=== PATIENT | male | born 1940 | race Caucasian/White ===

== ENCOUNTER 2019-12-21 13:25 | Outpatient (CLI) | payer MEDICARE, SELFPAY ==
--- NOTE | ~2019-12-21 | PE_ITS ---
EXAMINATION: PET skull to mid thigh DATE: 12/21/2019 15:43 INDICATION: Lung mass TECHNIQUE: Blood glucose level was 79 mg/dL. 10.36 mCi of 18-fluorodeoxyglucose (18-FDG) was administ ered i.v. Low dose computed tomography (CT) images were acquired from the base of the brain to the pr oximal thighs for attenuation correction and anatomic localization. Positron emission tomography (PET ) images were acquired in the same distribution beginning 60 minutes after injection. COMPARISON: 01/27/2018, 09/06/2019 FINDINGS: Head/neck: There is asymmetric soft tissue density in the area of the right tonsil with demonstrates abnormal FDG uptake with an SUV max of 11.4. There is chronic bilateral maxillary sinusitis. Changes of extensive dental procedures are again noted. Chest: The centrally necrotic masslike opacity of the right middle lobe described on the most recent chest CT has nearly completely resolved and does not demonstrate associated FDG uptake, most consiste nt with resolved infection/inflammation. There are airspace opacities and bronchial wall thickening o f the bilateral lower lobes as well as a 1.6 cm subpleural nodular opacity of the left lower lobe wit h mild FDG uptake. FDG uptake is also associated with the right lower lobe airspace opacities. There are small pleural effusions, right greater than left. No pneumothorax is identified. There is stable cardiomegaly. There is mild mediastinal lymphadenopathy without significant FDG uptake, likely reacti ve.. Abdomen/pelvis/proximal thighs: Physiologic FDG activity is present in the bowel and urinary tract. N o abnormal FDG uptake is identified. The liver, gallbladder, spleen, pancreas, and adrenal glands are normal. Cysts of the kidneys measure up to 6.3 cm on the left. There are nonobstructing stones of th e left kidney. Metallic density is again seen projecting near the hilum of the right kidney. No patho logically enlarged abdominal or pelvic lymph nodes are identified. There is calcified atherosclerosis of the aorta and many of the other arteries. Musculoskeletal: No abnormal FDG uptake is identified. There is anterior fusion at C3-4. Severe spond ylosis is noted at L5-S1. IMPRESSION: 1. Interval resolution of the previously described masslike opacity of the right middle lobe since th e comparison CT, most consistent with resolved infection/inflammation. Bilateral lower lobe opacities , consistent with pneumonia. 2. Asymmetric soft tissue density in the right tonsillar area with abnormal FDG uptake which may be b enign or malignant. Direct visualization is recommended. Reviewed, dictated and finalized at location A. [facility] IMPRESSION: 1. Interval resolution of the previously described masslike opacity of the righ t middle lobe since the comparison CT, most consistent with resolved infection/ inflammation. Bilateral lower lobe opacities, consistent with pneumonia. 2. Asymmetric soft tissue density in the right tonsillar area with abnormal FDG uptake which may be benign or malignant. Direct visualization is recommended.
[2019-12-21 14:03] LABS: Glucose Point of Care 79 (65-105)
== END 2019-12-21 13:26 | disposition home or self-care (01) ==
PROVIDERS: PCP Internal Medicine
DX: R91.8 Other nonspecific abnormal finding of lung field (principal)
CPT/HCPCS: 78815; A9552

== ENCOUNTER 2020-02-23 14:34 | Observation (INO) | payer MEDICARE, SELFPAY ==
[2020-02-23] VITALS (10 sets, daily range): BP systolic 104–127; BP diastolic 66–82; PULSE 87–140; RESP 16–18; TEMP 35.8–36.9; O2SAT 96–100; BMI 18.1
--- NOTE | ~2020-02-23 | XR_ITS ---
XR chest 2V 02/23/2020 15:21 Indication: Atrial fibrillation Procedure: AP and lateral views of the chest Comparison: 09/06/2019 Findings: There are bilateral interstitial infiltrates primarily of the lung bases. The right middle lobe mass seen on prior x-ray is not identified on current study. There is probable small amount of f luid in the right fissure. There are surgical changes consistent with partial right pneumonectomy. Th e lungs are hyperinflated which is consistent with, but not diagnostic of chronic obstructive pulmona ry disease. Impression: 1: There are coarse interstitial changes of the lower lungs which may represent chronic fibrosis, john ma or atypical pneumonia. Reviewed, dictated and finalized at location A. Impression: 1: There are coarse interstitial changes of the lower lungs which may represent chronic fibrosis, edema or atypical pneumonia.
--- NOTE | 2020-02-23 14:35 | ECG_ITS ---
Measurements Intervals [place] Rate: 138 P: [place]: 0 QRS: 43 QRSD: 110 T: 14 QT: 287 QTc: 436 Interpretive Statements ATRIAL FLUTTER/TACHYCARDIA WITH RAPID VENTRICULAR RESPONSE INCOMPLETE RIGHT BUNDLE BRANCH BLOCK ABNORMAL ECG Electronically Signed On 02-23-2020 14:50:00 CDT by Cedric Vasquez D.O.
--- NOTE | 2020-02-23 14:45 | ED.CHESTPAIN ---
HPI - Chest Pain General Chief Complaint: Arrhythmia/Palpitations Stated Complaint: afib Time Seen by Provider: 02/23/20 14:36 Source: RN notes reviewed History of Present Illness HPI narrative: Patient presents emergency department from home for rapid heart rate. Patient had a home health nurse visit today to check his heart rate and noted the heart rate to be fast. Patient states he did not feel the heart rate is going fast. He denies having chest pain or shortness of breath. The patient does have a history of atrial fibrillation and is currently on Eliquis. He is unsure of his mounter hand. He denies any fevers or chills or any other symptoms he is currently on metoprolol Related Data Home Medications Medication Instructions Recorded Confirmed apixaban [Eliquis] mg BID 09/06/19 metoprolol tartrate 25 mg PO DAILY 02/23/20 polyethylene glycol 3350 17 g PO BID 02/23/20 Allergies Allergy/AdvReac Type Severity Reaction Status Date / Time No Known Allergies Allergy Mild Verified 02/23/20 14:48 Review of Systems Review of Systems: Narrative: Gen.: Denies fevers or chills Eyes: Denies eye pain or visual change ENT: Denies congestion Respiratory: Denies shortness of breath or cough CV: Reports rapid heart rate GI: Denies abdominal pain nausea, emesis or diarrhea Musculoskeletal: Denies back pain or muscle pain Neuro: Denies numbness, tingling, weakness or focal weakness Skin: Denies rash Except as documented, all other systems reviewed and negative [facility] Past Medical History Medical History (Updated 02/23/20 @ 16:46 by Joseph Mitchell DO) Anxiety Atrial fibrillation HTN (hypertension) Left rib fracture Lung cancer Oral cancer Right wrist fracture Surgical History Surgical History (Updated 09/06/19 @ 13:45 by Anais Peace) H/O hernia repair H/O oral surgery Social History Social History Smoking status: Former smoker Gender identity (if verbalized by the patient): Male Exam Narrative: Exam Narrative: APPEARANCE: No acute distress, nontoxic, resting in bed EYES: EOMI HEENT: Normocephalic, atraumatic, OMM RESPIRATORY: No respiratory distress Clear to auscultation bilaterally with no rhonchi wheezing or rales. CARDIOVASCULAR: Tachycardic and regular without murmurs rubs or gallops. ABDOMINAL: Soft, nontender, nondistended, no rebound or guarding G-tube present MUSCULOSKELETAl: Moves all extremities. No clubbing, cyanosis or edema. NEURO: Awake and alert. Following commands, speech normal, no focal deficits SKIN:: Warm, dry. No rashes lesions or abrasions PSYCHIATRIC: Normal affect/mood, Course Course Emergency Course: Reviewed records patient had been on digoxin and Cardizem at one point but switch to metoprolol Discussed with Taylor Patel for cardiology presentation work-up. Agrees with consult at this time Discussed with TIMOTHY Cardona for Dr Devi presentation work-up. Agrees with admission Discussed with patient and family results of workup and diagnosis. Discussed need for admission. Patient and family understand and agree to current treatment plan Vital Signs Vital signs: Vital Signs Temperature 98.5 F 02/23/20 14:38 Pulse Rate 140 H 02/23/20 14:38 Respiratory Rate 16 02/23/20 14:38 Blood Pressure 122/82 02/23/20 14:38 Pulse Oximetry 99 02/23/20 14:38 Temperature 98.5 F 02/23/20 14:38 Pulse Rate 106 H 02/23/20 16:06 Respiratory Rate 16 02/23/20 16:06 Blood Pressure 108/66 02/23/20 16:06 Pulse Oximetry 96 02/23/20 16:06 MDM - Chest Pain Lab Data Result diagrams: 02/23/20 14:44 02/23/20 14:44 Labs: Lab Results 02/23/20 02/23/20 02/23/20 Range/Units 14:44 14:44 14:44 WBC 6.4 (4.5-10.0) K/mm3 RBC 4.74 (4.6-6.20) M/mm3 Hgb 13.3 L (14.0-18.0) g/dL Hct 42.3 (42.0-52.0) % MCV 89.2 (80-100) fl MCH 28.1 (26-34) pg MCHC
[2020-02-23] MEDS: SODIUM CHLORIDE 0.9% IV 1,000 ML 999 ML IV CONT (14:54)
[2020-02-23 14:56] LABS: Basophils Percent Auto 0.5 % (0.2-1.2); Eosinophils Absolute Auto 0.1 K/mm3 (0-0.3); Eosinophils Percent Auto 1.6 % (0-4.4); Hematocrit 42.3 % (42.0-52.0); Hemoglobin 13.3 g/dL (14.0-18.0); Immature Granulocyte Absolute 0.01 K/mm3 (0.00-0.031); Immature Granulocyte Percent A 0.2 % (0-0.5); Lymphocytes Absolute Auto 1.42 K/mm3 (0.9-3.2); Lymphocytes Percent Auto 22.2 % (18.3-44.2); Mean Corpuscular HGB Conc 31.4 g/dl (32-36); Mean Corpuscular Hemoglobin 28.1 pg (26-34); Mean Corpuscular Volume 89.2 fl (80-100); Mean Platelet Volume 10.2 fl (7.4-10.4); Monocytes Absolute Auto 0.6 K/mm3 (0.1-0.6); Monocytes Percent Auto 9.2 % (2.6-8.5); Neutrophils Absolute Auto 4.2 K/mm3 (1.3-6.7); Neutrophils Percent Auto 66.3 % (45.5-73.1); Platelet Count Result 158 k/mm3 (150-375); Red Blood Count 4.74 M/mm3 (4.6-6.20); Red Cell Distribution Width 18.4 % (11.5-14.5); White Blood Count 6.4 K/mm3 (4.5-10.0)
[2020-02-23 15:08] LABS: Blood Urea Nitrogen 38 mg/dL (9-20); Calcium 9.2 mg/dL (8.4-10.2); Carbon Dioxide 31 mmol/L (22-30); Chloride 103 mmol/L (98-107); Estimated CRCL calculation 78 ml/min; Estimated Glomerular Filt Rate > 60; Glucose 98 mg/dL (75-110); Potassium 4.4 mmol/L (3.4-5.0); Sodium 138 mmol/L (137-145)
[2020-02-23 15:12] LABS: INR 1.1; Prothrombin Time 14.3 Seconds (11.1-14.7)
[2020-02-23 15:13] LABS: Partial Thromboplastin Time 34.8 SECONDS (22.3-36.8)
--- NOTE | 2020-02-23 15:15 | ECG_ITS ---
Measurements Intervals [place] Rate: 86 P: [place]: 0 QRS: 52 QRSD: 121 T: 5 QT: 368 QTc: 441 Interpretive Statements ATRIAL FLUTTER/TACHYCARDIA RIGHT BUNDLE BRANCH BLOCK BASELINE ARTIFACT- II, III, AVF, V1-V3 ABNORMAL ECG Electronically Signed On 02-23-2020 15:58:42 CDT by Cedric Vasquez D.O.
[2020-02-23 15:26] LABS: Troponin I < 0.012 ng/mL (0.000-0.034)
--- NOTE | 2020-02-23 17:10 | ADMGEN ---
This patient, Hieu Silva, was admitted to IMU Room 205-01. Patient/family oriented to hospital policies and general routines including ID bracelet, bed and alarms, visiting hours, pain management, procedures, bathroom and other care routines, personal items, smoking policy, room service/diet, and visiting hours. Valuables list has been completed. Information on how to activate the Rapid Response Team has been discussed. Patient/Family are encouraged to report perceived risks to care and to ask questions if they do not understand what they are told or what they should do.
[2020-02-23 18:03] LABS: Troponin I < 0.012 ng/mL (0.000-0.034)
--- NOTE | 2020-02-23 20:40 | PM.IMHP ---
H&P: HPI History of Present Illness Chief complaint: ?Rapid heart rate.? Narrative: Hieu Silva is a very pleasant 79-year-old male with history of atrial flutter/fibrillation who presented to the emergency department earlier today for evaluation of ?rapid heart rate.? A home health nurse was visiting today and when she checked his vitals he was found to be tachycardic and he was directed to the emergency department. He was indeed found to be in atrial flutter with rapid ventricular response, of which she is completely asymptomatic, and he is being admitted in this setting. To his knowledge, he has always been rate controlled in fact he thinks his atrial flutter is paroxysmal. Previously he was on digoxin and diltiazem, but both of those medications were stopped during a recent hospitalization in December 2019. Sometime in November, he had a chest x-ray and was found to have a possible lung mass. PET scan on December 21, 2019 showed resolution of the previously described masslike opacity and also demonstrated bilateral lower lobe pneumonia. It then came to fruition that he had been experiencing dysphagia for a year and a half, and he was subsequently admitted at both [facility] in [facility] for further evaluation. I assumed he was treated for aspiration pneumonia and a PEG tube was inserted. He continues to drink liquids, and states his dysphagia is mainly with solids. In any regard, he has been doing well at home since that time, and home health does come to visit. It was during that routine visit today that he was found to be tachycardic and was brought to the hospital. Again, he is asymptomatic and has no feelings of irregular heartbeat or palpitations. He has not had chest pain, pleuritic pain, or shortness of breath. He will a cough occasionally with liquids, but denies concerns for aspiration (although it sounds as though he had silent aspiration previously). No fever, chills, or sweats. Review of Systems Review of Systems: Narrative: Twelve systems were reviewed with pertinent positives and negatives as per HPI. No fever, chills, or sweats. He has lost 40 pounds in the last year and a half, which he attributes to dysphagia. He also notes that his voice has changed somewhat. Apparently, the dysphagia has been attributed to radiation that he received some 15+ years ago for oral cancer. He denies having problems with his secretions. No nausea or vomiting. No diarrhea. He does have occasional constipation. Except as documented, all other systems were reviewed and are negative. 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 History of echocardiogram Echocardiogram in May 2014 showed vigorous contractility of the left ventricle with ejection fraction of 70%, mild anterior leaflet mitral valve prolapse with mild mitral regurgitation and mild left atrial enlargement. Left rib fracture Oral cancer (~2002) Treated at [facility] with radiation and resection of the left upper jaw. Paroxysmal atrial flutter Right wrist fracture Surgical History Surgical History (Updated 02/23/20 @ 22:50 by Dulce Hinkle PA-C) History of nephrectomy (~2011) Patient apparently had a large mass on his right kidney, which was benign. History of oral surgery (~2002) Resection of left upper jaw malignancy. Status post left inguinal herniorrhaphy Family History Family History (Updated 02/23/20 @ 19:59 by Dulce Hinkle PA-C) Father Acute myocardial infarction Diabetes mellitus Social History Social History (Updated 02/23/20 @ 22:51 by Dulce Hinkle PA-C) Social History: The patient lives in his own home in [place]. He is and has 3 children. He has a cat that lives at home with
[2020-02-23 20:50] LABS: Alanine Aminotransferase 14 U/L (4-50); Albumin Level 3.7 g/dL (3.5-5.1); Alkaline Phosphatase 84 U/L (38-126); Aspartate Amino Transferase 22 U/L (17-59); Bilirubin,Total 0.5 mg/dL (0.2-1.3); Magnesium 1.9 mg/dL (1.6-2.3); Phosphorus 3.9 mg/dL (2.5-4.5)
[2020-02-23 21:00] LABS: NT Pro B Type Natriuretic Pept 1580 PG/ML (5-100)
[2020-02-23 21:02] LABS: Troponin I < 0.012 ng/mL (0.000-0.034)
[2020-02-24] VITALS (11 sets, daily range): BP systolic 98–125; BP diastolic 60–83; PULSE 65–101; RESP 12–18; TEMP 36.1–36.4; O2SAT 95–97
[2020-02-24 05:26] LABS: Basophils Percent Auto 0.7 % (0.2-1.2); Eosinophils Absolute Auto 0.1 K/mm3 (0-0.3); Eosinophils Percent Auto 2.7 % (0-4.4); Hematocrit 37.9 % (42.0-52.0); Hemoglobin 11.8 g/dL (14.0-18.0); Immature Granulocyte Absolute 0.01 K/mm3 (0.00-0.031); Immature Granulocyte Percent A 0.2 % (0-0.5); Lymphocytes Absolute Auto 1.26 K/mm3 (0.9-3.2); Lymphocytes Percent Auto 28.7 % (18.3-44.2); Mean Corpuscular HGB Conc 31.1 g/dl (32-36); Mean Corpuscular Hemoglobin 27.5 pg (26-34); Mean Corpuscular Volume 88.3 fl (80-100); Mean Platelet Volume 10.2 fl (7.4-10.4); Monocytes Absolute Auto 0.4 K/mm3 (0.1-0.6); Monocytes Percent Auto 9.3 % (2.6-8.5); Neutrophils Absolute Auto 2.6 K/mm3 (1.3-6.7); Neutrophils Percent Auto 58.4 % (45.5-73.1); Platelet Count Result 146 k/mm3 (150-375); Red Blood Count 4.29 M/mm3 (4.6-6.20); Red Cell Distribution Width 18.2 % (11.5-14.5); White Blood Count 4.4 K/mm3 (4.5-10.0)
[2020-02-24 05:44] LABS: Alanine Aminotransferase 13 U/L (4-50); Albumin Level 3.4 g/dL (3.5-5.1); Alkaline Phosphatase 84 U/L (38-126); Aspartate Amino Transferase 22 U/L (17-59); Bilirubin,Total 0.8 mg/dL (0.2-1.3); Blood Urea Nitrogen 22 mg/dL (9-20); Calcium 8.6 mg/dL (8.4-10.2); Carbon Dioxide 28 mmol/L (22-30); Chloride 105 mmol/L (98-107); Estimated CRCL calculation 75 ml/min; Estimated Glomerular Filt Rate > 60; Glucose 83 mg/dL (75-110); Potassium 3.6 mmol/L (3.4-5.0); Sodium 137 mmol/L (137-145)
[2020-02-24] MEDS: APIXABAN 5 MG TABLET FEED TUBE (08:48)
[2020-02-24] MEDS: polyethylene glycoL 3350 17 GM POWD.PACK FEED TUBE (08:48)
[2020-02-24] MEDS: METOPROLOL TARTRATE 25 MG TABLET FEED TUBE (08:48)
--- NOTE | 2020-02-24 13:33 | PM.CNCAR ---
Assessment and Plan Assessment and plan (1) Atrial flutter with rapid ventricular response: Code(s): I48.92 - Unspecified atrial flutter Status: Acute Assessment and Plan: history of paroxysmal atrial flutter with variable AV block. Heart rate well controlled after receiving intravenous diltiazem which has subsequently been discontinued. He was taking metoprolol tartrate 12.5 mg per tube once daily as an outpatient. Increase metoprolol tartrate to 25 mg per tube twice daily. Observed into this afternoon for adequate heart rate control. If stable no other issues he may be discharged home from a cardiovascular perspective to follow up as an outpatient within 4 weeks. Consider outpatient 24 hour Holter monitor to establish heart rate control. As patient is asymptomatic up titration as an outpatient with metoprolol as tolerated preferable to transferring patient to the emergency department with an elevated heart rate unless additional concerns are present. Disposition per hospitalist service. troponin is negative, no anginal or CHF symptoms. Thank you for this consultation. Please do not hesitate to contact me with additional questions or concerns. (2) Hypertension: Code(s): I10 - Essential (primary) hypertension Status: Acute Assessment and Plan: Stable, no acute issues. Continue medical therapy. (3) Current use of intermediate anticoagulation: Code(s): Z79.01 - snf (current) use of anticoagulants Status: Acute Assessment and Plan: Continue systemic anticoagulation at present dose. Monitor for bleeding. History of Present Illness History of Present Illness Consult date/time: Date of service: 02/24/20 13:33 This is a cardiology consultation at the request of Kristyn Hinkle of the [facility] service for our opinion regarding atrial flutter with rapid ventricular response. Requesting physician: Dulce Hinkle PA-C Consult reason: atrial fibrillation ( Atrial flutter with rapid ventricular response) Reason For Visit: ?Rapid heart rate.? Narrative: patient is a very pleasant 79-year-old male the past medical history significant for paroxysmal atrial flutter longstanding maintained on systemic anticoagulation and metoprolol tartrate 12.5 mg per tube, history of mitral valve prolapse with mitral valve regurgitation, hypertension, history of bradycardia who was brought in today after home health nursing evaluation revealed his heart rate to be rapid. Patient had no symptoms of palpitation, shortness of breath or chest pain. He states he feels well would like to be discharged home. He was subsequently started on intravenous diltiazem which controlled his heart rate nicely heart rate 60s- 80s. Patient states he has been compliant with metoprolol and Eliquis twice daily. He denies bleeding, falls, fevers, chills, recent sick contacts or illness. His electrolytes were stable,, serial troponins negative x3, proBNP 1580. Patient has no complaints although chest x-ray interpreted as coarse interstitial changes at lower lung zones chronic fibrosis, edema or atypical pneumonia by Radiology. He denies lower extremity edema, orthopnea or PND. No recent falls, near-syncope, syncope, dizziness or lightheadedness. No bright red blood per rectum, melena or hematuria. No hemoptysis. Per review electronic medical record suggestion of possible aspiration but patient denies dysphagia. Review of Systems Review of Systems: All systems reviewed & are unremarkable except as noted in HPI and below Constitutional: Constitutional: Reports as per HPI, Reports no additional constitutional complaints, Denies body ache(s), Denies chills, Denies fatigue, Denies lethargy and Denies weakness Eyes: Eyes: Reports as per HPI and Reports no additional eye complaints ENT: Reports system reviewed and no additional complaints, except as documented and Reports as per HPI Cardiovascular:
--- NOTE | 2020-02-24 13:43 | PM.DS ---
DS: Diagnosis Admitting Diagnosis Admitting Diagnosis: Unspecified atrial flutter Discharge Diagnosis (1) Atrial flutter with rapid ventricular response: Code(s): I48.92 - Unspecified atrial flutter Status: Acute Assessment and Plan: Patient was started on IV Cardizem drip with improvement of his heart rate. Cardiology evaluated the patient and discontinued his IV Cardizem drip and increase his metoprolol to 25 mg b.i.d. tele currently shows the patient's heart rate is 67 And atrial fibrillation, with few PVCs otherwise no acute abnormality. the patient feels better and would like to be discharged at this time. 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 patient understands and agrees with the plan all questions answered. 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 (3) Abnormal chest x-ray: Code(s): R93.89 - Abnormal findings on diagnostic imaging of other specified body structures Status: Acute Assessment and Plan: Chest x-ray shows coarse interstitial changes of the lower lungs which could be fibrosis, edema, or atypical pneumonia. He was discharged from [facility] on January 07, 2020 after being admitted for presumed aspiration pneumonia. The patient states he only drinks about 350 cc of liquid throughout the day by mouth to trying keep his mouth and throat moist. He denies any coughing with drinking, worsening cough, shortness of breath at rest or with exertion, fever, chills, chest congestion or any other symptoms at this time. I informed the patient that he should decrease his oral intake as much as possible due to the risk of aspiration. he should only drink if his mouth or throat is dry. Patient needs to follow-up with his primary care provider and [facility] who has been taking care of him for further evaluation. Patient's vital signs are stable, afebrile, normal respirations, normal oxygenation, no leukocytosis, no elevation to neutrophil count to suggest he has pneumonia at this time. DS: Summary Hospital Course Reason for hospitalization: 79-year-old man with a history of paroxysmal atrial flutter/fibrillation, who presented to the emergency department after being found to have an elevated heart rate by his home health nurse. The patient was asymptomatic and otherwise feeling well without any issues. Patient EKG on arrival showed atrial flutter with RVR and heart rate of 138. The patient's vitals were otherwise unremarkable. The patient's labs showed normal CBC with differential, normal coag panel, normal BMP other than slightly elevated BUN. Normal troponin x3. BNP was 1580, but he appears euvolemic. The patient was admitted into the hospital for observation and started on an IV Cardizem drip. Cardiology was consulted from the emergency room and Dr. Christian evaluated the patient today and discontinue the IV Cardizem drip and increased his metoprolol tartrate to 25 mg b.i.d. for better rate control. Patient was still feeling asymptomatic and he was stable to be discharged home to continue with home health. The patient understands and agrees with the plan all questions answered. Patient has a history of oral cancer status post radiation to his mouth and neck area. He had a recent admission to [facility] and was found to have aspiration pneumonia. He had a PEG tube placed and he continues to drink some liquids throughout the day. On arrival his chest x-ray shows coarse interstitial changes of th
== END 2020-02-24 15:20 | disposition home health service (06) ==
LOC: ANHED 16:02 → ANHIMU 16:46
PROVIDERS: Physician Assistant; Admitting Provider Internal Medicine; Emergency Provider Emergency Medicine; PCP Internal Medicine; Visit Provider Physician Assistant
DX: I48.92 Unspecified atrial flutter (principal); I48.91 Unspecified atrial fibrillation; I10 Essential (primary) hypertension; R93.89 Abnormal findings on diagnostic imaging of other specified body structures; Z79.01 Long term (current) use of anticoagulants; Z79.899 Other long term (current) drug therapy; Z85.819 Personal history of malignant neoplasm of unspecified site of lip, oral cavity, and pharynx; Z87.891 Personal history of nicotine dependence
CPT/HCPCS: 36415; 71046; 80048; 80053; 80076; 83735; 83880; 84100; 84484; 85025; 85610; 85730; 93005; 96361; 96374; 96376; 99285; A9270; G0378; J7030

== ENCOUNTER 2020-06-04 09:02 | Inpatient (IN) | payer MEDICARE, SELFPAY ==
[2020-06-04] VITALS (24 sets, daily range): BP systolic 73–112; BP diastolic 45–95; PULSE 86–145; RESP 14–24; TEMP 36.4–36.5; O2SAT 97–100; BMI 21.7; BMI 20.9
--- NOTE | 2020-06-04 | ECHO_ITS ---
Patient Info Name: Hieu Silva Age: 79 years : 1940 Gender: Male Ht: 72 in Wt: 159 lbs BSA: 1.91 m2 HR: 140 bpm BP: 91 / 52 mmHg Heart Rhythm: Atrial Flutter Technical Quality: Good Exam Date: 06/04/2020 2:30 PM Exam Location: [facility] Patient Status: Outpatient Admit Date: 06/04/2020 Staff Ordering Physician: Lisha Cobb MD Econometrics Professor: Simone Vicente RDCS Attending Provider: Sina Diamond MD Referring Physician: Reza RIVERA; Exam Type: CA echo doppler color flow Study Info Indications I34.1 - Nonrheumatic mitral (valve) prolapse Complete two-dimensional, color flow and Doppler transthoracic echocardiogram is performed. History/Risk Factors Atrial flutter; Hypotension, MV prolapse. Summary 1. Left ventricular chamber dimension is normal. 2. Left ventricular systolic function is normal, estimated at 55-60%. 3. There is moderately increased left ventricular wall thickness. 4. The left ventricular diastolic function is indeterminate. 5. Left atrial chamber dimension is severely enlarged. 6. Right atrial chamber dimension is moderately enlarged. 7. There is moderate mitral valve regurgitation. 8. 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 9. There is mild tricuspid valve regurgitation. Left Ventricle Left ventricular chamber dimension is normal. Left ventricular systolic function is normal, estimated at 55-60%. There is moderately increased left ventricular wall thickness. The left ventricular diastolic function is indeterminate. Right Ventricle Right ventricular chamber dimension is normal. Right ventricular systolic function is normal. Left Atria Left atrial chamber dimension is severely enlarged. Right Atria Right atrial chamber dimension is moderately enlarged. Atrial Septum Intact interatrial septum visualized by color flow imaging. Aortic Valve The aortic valve is trileaflet. There is mild aortic valve sclerosis. There is no aortic valve stenosis. There is trace aortic valve regurgitation. Pulmonic Valve The pulmonic valve is normal. There is no pulmonic valve stenosis. There is mild pulmonic regurgitation. Mitral Valve The mitral valve has anterior prolapse. There is no mitral valve stenosis. There is moderate mitral valve regurgitation. Tricuspid Valve The tricuspid valve leaflets are normal. There is no significant tricuspid valve stenosis. There is mild tricuspid valve regurgitation. Pericardium/Pleural The pericardium appears normal. Inferior Vena Cava Normal inferior vena cava with >50% collapse upon inspiration consistent with normal right atrial pressure, 5 mmHg. Aorta The aortic root size at the sinus of Valsalva is normal. The prox ascending aorta size is normal. Left Ventricular Outflow Tract Name Value Normal LVOT 2D LVOT Diameter 2.1 cm LVOT Doppler LVOT Peak Gradient 3 mmHg LVOT Mean Gradient 2 mmHg LVOT VTI 10 cm LVOT VTI/AV VTI Ratio 0.6 LVOT Stro
--- NOTE | ~2020-06-04 | XR_ITS ---
EXAMINATION: XR chest port-a-cath/central DATE: 06/04/2020 11:51 INDICATION: Central line placement. TECHNIQUE: A single frontal view of the chest was obtained. COMPARISON: Chest single view at 9:34 AM, PET CT 12/21/2019 FINDINGS: There is a staple line in right lung upper lobe. Again seen is scarring in paramediastinal left upper lobe. There is a trace pleural effusion in right minor fissure. No pneumothorax. The heart size is normal. A right internal jugular central venous catheter is seen with tip in the superior ve na cava. There is an old healed right rib fracture. IMPRESSION: 1. Central line tip in superior vena cava. Reviewed, dictated and finalized at location B.
--- NOTE | ~2020-06-04 | XR_ITS ---
EXAMINATION: XR chest 1V portable DATE: 06/04/2020 09:44 INDICATION: Aspiration pneumonia TECHNIQUE: frontal view of the chest was obtained. COMPARISON: Chest radiograph dated 02/23/2020 FINDINGS: Interval decrease in the prior diffuse interstitial pattern and peripheral Anna B-lines consistent with improving now minimal pulmonary edema. Residual fine reticulonodular pattern at the left lower l omar zone could represent additional pulmonary edema, atelectasis or aspiration/pneumonia. Suture line and associated atelectasis/scarring at the lateral right midlung zone consistent with prior pulmonar y wedge resection. No pleural effusion or pneumothorax. Mild cardiomegaly. IMPRESSION: 1. Improvement in prior pulmonary edema with residual reticular nodular opacities in the left lower l omar zone which could represent residual pulmonary edema, atelectasis or aspiration/pneumonia. 2. Mild cardiomegaly. Reviewed, dictated and finalized at location A. IMPRESSION: 1. Improvement in prior pulmonary edema with residual reticular nodular opaciti es in the left lower lung zone which could represent residual pulmonary edema, atelectasis or aspiration/pneumonia. 2. Mild cardiomegaly.
--- NOTE | ~2020-06-04 | CT_ITS ---
EXAMINATION: CT soft tissue neck w con EXAM DATE: 06/04/2020 20:57 INDICATION: Right palatine tonsil bleeding mass, febrile. TECHNIQUE: Spiral CT of the neck was performed following intravenous injection of 75 mL Omnipaque 350 . Axial, coronal and sagittal images were reviewed. The dose-length product (DLP) for this examinat ion was 452.36 mGy-cm. The exposure was tailored according to patient size (auto mA exposure control ), and iterative reconstruction (ASIR) was used as additional dose reduction technique. Correlation i s made to head CT 12/21/2019. FINDINGS: There are surgical changes from left-sided radical lymph node dissection. Additional facial surgical changes with resection of the hard palate, with an artificial plate, also likely inferior a spect of the left maxillary sinus. On the right there is ill-defined soft tissue density surrounding the inferior aspect of the right maxillary sinus, region measuring about 2.5 cm diameter, contiguous with soft tissue extending posteriorly toward the palatine tonsil. Difficult to tell if there is sign ificant interval change in this compared to November given differences in technique, but now almost t he entire right maxillary sinuses opacified. Also development of nearly completely opacified right et hmoid air cells. This new increased opacification could be from ostiomeatal unit obstruction, sinusit is. Cannot clearly distinguish this from any extension of patient's known malignancy into the sinus. The thyroid gland is unremarkable. Left submandibular gland has been resected. There is a right sub mandibular lymph node measuring 1.7 x 0.8 cm, mildly enlarged. There are other right internal jugular chain lymph nodes which are mildly enlarged, suspect metastatic lymphadenopathy. There is a right-si ded IJ venous line. The superior mediastinum is unremarkable. The airway is unremarkable. Parapha ryngeal and pre-glottic fat planes are preserved. The opacified vasculature is patent. The orbits are unremarkable. Completely opacified left mastoid air cells and partially opacified left year. There is cervical s pondylosis. IMPRESSION: 1. Osseous erosion of the right maxillary sinus bentley inferiorly, contiguous to more posterior exten rosalio of soft tissue to the palatine tonsil, as previously seen. 2. Development of nearly opacified right maxillary and ethmoid sinuses, could be sinusitis, ostiomea nicholas unit obstructive pattern. Can't determine how much is malignancy. 3. Right-sided submandibular, internal jugular chain metastatic lymphadenopathy. Could compared to patient's prior neck imaging if available. Reviewed, dictated and finalized at location A. IMPRESSION: 1. Osseous erosion of the right maxillary sinus bentley inferiorly, contiguous t o more posterior extension of soft tissue to the palatine tonsil, as previously seen. 2. Development of nearly opacified right maxillary and ethmoid sinuses, could be sinusitis, ostiomeatal unit obstructive pattern. Can't determine how much is malignancy. 3. Right-sided submandibular, internal jugular chain metastatic lymphadenopath y. Could compared to patient's prior neck imaging if available.
--- NOTE | ~2020-06-04 | CT_ITS ---
EXAMINATION: CT chest abdomen pelvis w con DATE: 06/04/2020 13:07 INDICATION: Hypotension. Tachycardia. TECHNIQUE: Computed tomography (CT) of the chest, abdomen, and pelvis was performed with 100 mL Omnip aque 350 intravenous contrast. Automated exposure control and iterative reconstruction technique were employed. The dose-length product was 441.71 mGy-cm. COMPARISON: PET CT 12/21/2019, chest CT 09/06/2019 FINDINGS: CHEST CT: There is mild emphysema. There is a staple line in right lung upper lobe. There is mild atelectasis b ilaterally. There is paramediastinal scarring in left upper lobe with pleural calcifications. There i s mild bronchiectasis in right lower lobe, right middle lobe, and lingula. There is endobronchial mat erial in basilar left lower lobe. There are airspace and groundglass opacities in basilar left lower lobe with volume loss, likely atelectasis. No pleural effusion. The heart size is normal. There are c oronary artery calcifications. There are nodules in the thyroid measuring up to 4 mm, likely not clin ically significant. There is mild mediastinal lymphadenopathy, likely reactive. There is a hemangioma in T4 vertebral body. There is moderate thoracic spondylosis. ABDOMEN/PELVIS CT: Again seen is a 1.9 cm mass with peripheral hyperenhancement in right hepatic lobe, likely a hemangio ma. There is a 2.0 cm mass with interrupted peripheral puddling of contrast in right hepatic lobe, co nsistent with a hemangioma. The gallbladder, spleen, pancreas, and adrenal glands are normal. There i s cortical thinning of the kidneys. There are embolization coils at the hilum of right kidney inferio r pole. There are cysts in the kidneys measuring up to 6.4 cm on the left. There are stones in the ki dneys measuring up to 3 mm on the left. Stool distends the rectum. There is a gastrostomy tube in exp ected position. The appendix is normal. There are no pathologically enlarged lymph nodes. There is no free intraperitoneal fluid. There is severe lumbar spondylosis. IMPRESSION: 1. New endobronchial material in basilar left lower lobe, most likely mucus plugging. Neoplasm cannot be excluded. Postobstructive atelectasis in basilar left lower lobe. Reviewed, dictated and finalized at location B. IMPRESSION: 1. New endobronchial material in basilar left lower lobe, most likely mucus plu gging. Neoplasm cannot be excluded. Postobstructive atelectasis in basilar left lower lobe.
--- NOTE | 2020-06-04 09:19 | ECG_ITS ---
Measurements Intervals [place] Rate: 115 P: [place]: 0 QRS: 49 QRSD: 111 T: 12 QT: 337 QTc: 466 Interpretive Statements ATRIAL FLUTTER/TACHYCARDIA WITH RAPID VENTRICULAR RESPONSE INCOMPLETE RIGHT BUNDLE BRANCH BLOCK BASELINE ARTIFACT- V5-V6 ABNORMAL ECG Electronically Signed On 06-04-2020 9:32:58 CDT by Cedric Vasquez D.O.
--- NOTE | 2020-06-04 09:24 | PC.NURSE ---
verbal order from kaveh liz at bedside for 1L NS bolus stat
--- NOTE | 2020-06-04 09:27 | ED.GENADULT ---
HPI - General Adult General Chief complaint: Unspecified Stated complaint: gum bleeding Time Seen by Provider: 06/04/20 09:27 Source: patient and family Mode of arrival: ambulatory Limitations: no limitations History of Present Illness HPI narrative: The patient is a 79-year-old male with a past medical history of paroxysmal atrial flutter anticoagulated on Elliquis, history of mitral valve prolapse with mitral valve regurgitation, hypertension, aspiration pneumonia, PEG tube placement, who presents for evaluation of lightheadedness and dizziness. Patient reports that he had a tooth that was extracted several years ago that began to bleed 4 days ago. Patient states he has had large blood clots coming from the area, finally was able to stop the bleeding this morning. Patient denies any syncopal events, falls or head trauma. He denies any chest pain or shortness of breath. No current palpitations. Patient states he has had no oral intake for approximately 2 to 3 days aside from his G-tube feeds. Patient denies any dark or tarry stools. Related Data Home Medications Medication Instructions Recorded Confirmed Eliquis 5 mg BID 09/06/19 02/23/20 polyethylene glycol 3350 17 g PO BID 02/23/20 02/23/20 Allergies Allergy/AdvReac Type Severity Reaction Status Date / Time No Known Allergies Allergy Mild Verified 06/04/20 09:15 Review of Systems Review of Systems: Narrative: CONSTITUTIONAL: Denies fever CARDIOVASCULAR: Denies chest pain RESPIRATORY: Denies cough or dyspnea. GASTROINTESTINAL: Denies abdominal pain SKIN: Denies rash MUSCULOSKELETAL: Denies back pain NEUROLOGIC: Denies headache, reports lightheadedness and dizziness with standing, denies numbness PMFSH Past Medical History Medical History Anxiety Current use of assistant terminal manager anticoagulation Dysphagia causing pulmonary aspiration with swallowing Status post PEG tube insertion in December 2019. History of echocardiogram Echocardiogram in May 2014 showed vigorous contractility of the left ventricle with ejection fraction of 70%, mild anterior leaflet mitral valve prolapse with mild mitral regurgitation and mild left atrial enlargement. Left rib fracture Oral cancer (~2002) Treated at [place] [facility] with radiation and resection of the left upper jaw. Paroxysmal atrial flutter Right wrist fracture Surgical History Surgical History History of nephrectomy (~2011) Patient apparently had a large mass on his right kidney, which was benign. History of oral surgery (~2002) Resection of left upper jaw malignancy. Status post left inguinal herniorrhaphy Family History Family History Father Acute myocardial infarction Diabetes mellitus Social History Social History Social History: The patient lives in his own home in [place]. He is and has 3 children. He has a cat that lives at home with him. 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 He smoked up to a pack of cigarettes per day and quit several years ago. He drinks an occasional beer. No drug use. His daughter, Lisette Dai, is his surrogate decision maker and he wishes to be a full code. Gender identity (if verbalized by the patient): Male Spiritual care concerns: No Agree to blood products: Yes Exam Narrative: Exam Narrative: GENERAL: Awake, alert, conversant HEAD: Normocephalic, atraumatic. EYES: PERRLA and EOMI. ENT: Nares clear, no rhinorrhea or epistaxis. Mucous membranes moist. Blood clot present in the posterior oropharynx, no active bleeding. Partial denture in place. I asked pt to remove this and he declined. NECK: Supple. CHEST: No respiratory distress, breathing even and non labored HEART: Tachycardic, atrial flutter ABDOMEN:Non distended,
[2020-06-04] MEDS: SODIUM CHLORIDE 0.9% IV 1,000 ML 999 ML (09:29)
[2020-06-04 09:35] LABS: Basophils Percent Auto 0.4 % (0.2-1.2); Eosinophils Absolute Auto 0.1 K/mm3 (0-0.3); Eosinophils Percent Auto 0.8 % (0-4.4); Hematocrit 34.7 % (42.0-52.0); Hemoglobin 10.9 g/dL (14.0-18.0); Immature Granulocyte Absolute 0.03 K/mm3 (0.00-0.031); Immature Granulocyte Percent A 0.4 % (0-0.5); Lymphocytes Absolute Auto 1.23 K/mm3 (0.9-3.2); Mean Corpuscular HGB Conc 31.4 g/dl (32-36); Mean Corpuscular Volume 89.2 fl (80-100); Mean Platelet Volume 10.2 fl (7.4-10.4); Monocytes Absolute Auto 0.7 K/mm3 (0.1-0.6); Monocytes Percent Auto 9.3 % (2.6-8.5); Neutrophils Absolute Auto 5.6 K/mm3 (1.3-6.7); Neutrophils Percent Auto 73.1 % (45.5-73.1); Platelet Count Result 193 k/mm3 (150-375); Red Blood Count 3.89 M/mm3 (4.6-6.20); Red Cell Distribution Width 14.6 % (11.5-14.5); White Blood Count 7.7 K/mm3 (4.5-10.0)
[2020-06-04 09:48] LABS: Alanine Aminotransferase 16 U/L (4-50); Albumin Level 3.6 g/dL (3.5-5.1); Alkaline Phosphatase 80 U/L (38-126); Anion Gap 9 mmol/L (8-16); Aspartate Amino Transferase 20 U/L (17-59); Bilirubin,Total 0.5 mg/dL (0.2-1.3); Blood Urea Nitrogen 60 mg/dL (9-20); Calcium 8.6 mg/dL (8.4-10.2); Carbon Dioxide 26 mmol/L (22-30); Chloride 103 mmol/L (98-107); Estimated CRCL calculation 44 ml/min; Estimated Glomerular Filt Rate 54; Glucose 119 mg/dL (75-110); Potassium 4.3 mmol/L (3.4-5.0); Sodium 138 mmol/L (137-145)
[2020-06-04] MEDS: SODIUM CHLORIDE 0.9% IV 500 ML 999 ML IV CONT (09:50)
[2020-06-04 09:51] LABS: INR 1.4; Prothrombin Time 16.9 Seconds (11.1-14.7)
[2020-06-04 09:52] LABS: Partial Thromboplastin Time 33.2 SECONDS (22.3-36.8)
--- NOTE | 2020-06-04 10:00 | PC.NURSE ---
reminded of need for ua, refusing cath.
[2020-06-04 10:24] LABS: Lactic Acid Reflex 1.1 mmol/L (0.7-2.1)
[2020-06-04 10:25] LABS: NT Pro B Type Natriuretic Pept 1990 PG/ML (5-100)
--- NOTE | 2020-06-04 10:52 | PC.NURSE ---
kaveh liz at bedside updating pt and reminding him that pt needs to give ua, states he will attempt.
--- NOTE | 2020-06-04 11:02 | PC.NURSE ---
report given bedside to maria t broussard, she has assumed pt care.
[2020-06-04] MEDS: NOREPINEPHRINE 8 MG/D5W 250 ML 8 MG/250 ML BAG 9.4 MG IV CONT (12:23)
[2020-06-04 12:57] LABS: Add Urine Microscopic? YES; Appearance Urine Clear (Clear); Bacteria Urine Trace /hpf; Bilirubin Urine Negative (Negative); Blood Urine Negative (Negative); Color Urine Yellow (Yellow); Glucose Urine UA Negative (Negative); Hyaline Casts Urine 20-29 /lpf; Ketones Urine Negative (Negative); Leukocyte Esterase Ur Negative LEU/UL (Negative); Mucus Urine Rare /lpf; Nitrate Urine Negative (Negative); Protein Urine Negative (Negative); RBC Urine 0-2 /hpf (0-2); Specific Grav Ur 1.018 (1.001-1.035); Squamous Epithelial Cell Urine Occasional /hpf (Few); Transitional Epi Cells Urine Rare /hpf (None Seen); Urobilinogen Urine Negative mg/dL (<2.0); WBC Urine 0-3 /hpf
[2020-06-04] MEDS: metroNIDAZOLE 500 MG/ISO 100ML 500 MG/100 ML BAG 100 MG IVPB (14:31)
--- NOTE | 2020-06-04 15:04 | WPDCNINT ---
Assessment and Plan Assessment and plan (1) Acute hypotension: Code(s): I95.9 - Hypotension, unspecified Status: Acute Assessment and Plan: likely multifactorial from blood loss from bleeding, hypovolemia, possible aspiration pneumonia, and medication including beta-peyton received 2 L of saline bolus in ED continue cautious hydration monitor hemoglobin switch Levophed to Raf-Synephrine due to atrial flutter check cortisol hold metoprolol stat echocardiogram ordered (2) Aspiration pneumonia: Code(s): J69.0 - Pneumonitis due to inhalation of food and vomit Status: Acute Assessment and Plan: see CT shows infiltrate in left lower lobe and mucus plugging could be aspiration of blood verses food/ water although patient denies eating any food to mouth and admits to taking only water and relying on his tube feeds culture sent Zosyn (3) Atrial flutter with rapid ventricular response: Code(s): I48.92 - Unspecified atrial flutter Status: Acute Assessment and Plan: likely worsened by Levophed switched to Raf-Synephrine for hypertension amiodarone bolus and drip check echo cardiology consult (4) Bleeding: Code(s): R58 - Hemorrhage, not elsewhere classified Status: Acute Assessment and Plan: bleeding from past surgical site no active bleeding seen on exam although I saw old blood in posterior pharynx will monitor hemoglobin hold Eliquis Additional Plan DVT prophylaxis - SCDs Nutrition - resume tube feeds Code Status - Full Code Total Critical Care Time - 30 minutes Due to a high probability of clinically significant, life threatening deterioration, the patient required my highest level of preparedness to intervene emergently and I personally spent this critical care time directly and personally managing the patient. This critical care time included obtaining a history; examining the patient; pulse oximetry; ordering and review of studies; arranging urgent treatment with development of a management plan; evaluation of patient's response to treatment; frequent reassessment; and discussions with other providers. It was exclusive of separately billable procedures and treating other patients and teaching time. Please see Assessment and Plan section and the rest of the note for further information on patient assessment and treatment Stiff Neck Loader Consult Note Consult date: 06/04/20 Time Seen: 15:30 HPI: Hieu Silva is a 79 year old male with past medical history of atrial fibrillation /flutter presented after he started having bleeding from his mouth 3 days ago. patient has history of oral cancer which was treated with radiation and surgery in 2002. Since then he has had a partial prostatic jaw. He is also on Eliquis as anticoagulation for his atrial fibrillation. He has been having bleeding from his jaw since Wednesday which led him to come to ER today. In ED he was found to be hypotensive and in a flutter. Patient was given 2 L bolus without significant improvement in his blood pressure hence a right IJ central line was placed and patient was started on Levophed infusion. over the course of his ED stay patient's atrial flutter back developed into RVR. When I saw the patient he was on 10 mics of Levophed and rate was in 130s. He denied any other major complaints. Since his surgery he has had a PEG tube which he uses for feeding and drinks water only orally. He continued to take his Eliquis. Patient denies fever, chest pain, shortness of breath, cough, nausea, vomiting, abdominal pain, dysuria, hematuria, diarrhea, headache. No change in sensation of smell or taste. Review of system was positive for constipation. Review of Systems Review of Systems: All systems reviewed & are unremarkable except as noted in HPI and below ( HPI) [facility] Past Medical History Medical History
--- NOTE | 2020-06-04 16:15 | PM.IMHP ---
H&P: HPI History of Present Illness Date/Time: 06/04/20 16:15 Chief complaint: Bleeding from mouth. Narrative: Hieu Silva is a 79-year-old male with history of atrial flutter on long-term anticoagulation and oral cancer status post radical resection of the left upper jaw with radiation who presented to the emergency department earlier today via private vehicle from home for evaluation of bleeding from the mouth. On Wednesday evening he noticed bleeding coming from what he thought was the site of a prior right upper molar extraction, done 4 or 5 years ago. He had a very difficult time controlling the bleeding, and in fact he tells me that it bled for about 3 days, and significant quantities including large clots, before it finally stopped this morning. He is certain that the bleeding was coming from the right, posterior upper jaw region, but goes on to say that the blood must have gotten into my sinuses as it was coming up the left side of my nose. He has had some nausea, which he attributes to the blood going down into his stomach. He is not certain if he aspirated any of the blood, but believes he may have given his history of aspiration. On exam, he has tenderness to palpation of the right maxillary sinus, but he has no discomfort if there is no pressure applied to the area. He has an occasional cough which is unchanged. He has been eating and drinking as per usual. He has not had vomiting or diarrhea. No dysuria. On arrival to the emergency department, he did complain of feeling a bit lightheaded and dizzy with standing. he goes on to say that his blood pressures have been lower over the past couple of days, down to the 70 systolic. He was hypotensive with systolic blood pressures in the 70s and was also found to be in atrial flutter with rapid ventricular response. Under the presumption of septic shock, a central line was placed and he was started on Levophed. Unfortunately this led to increasing tachycardia, and I believe he was switched to Raf-Synephrine. He is currently on amiodarone drip with improvement in his rate and blood pressures. Cheetah showed that he was not fluid responsive. At the time my evaluation he has no complaints and surprisingly is completely asymptomatic with his a flutter/ RVR. Specifically he denies feelings of racing heart, palpitations, and shortness of breath. Of note, his last dose of Eliquis was on Wednesday evening, 06/03/2020. Review of Systems Review of Systems: Narrative: Twelve systems were reviewed with pertinent positives and negatives as per HPI. No fever, chills, or sweats. He denies recent cold and flu symptoms. No travel or sick contacts. He has not noticed any dark stools. He has occasional constipation. Except as documented, all other systems were reviewed and are negative. [facility] Past Medical History Medical History (Updated 06/04/20 @ 20:43 by Dulce Hinkle PA-C) Anxiety Current use of long-term anticoagulation Dysphagia causing pulmonary aspiration with swallowing Status post PEG tube insertion in December 2019. History of echocardiogram Echocardiogram in May 2014 showed vigorous contractility of the left ventricle with ejection fraction of 70%, mild anterior leaflet mitral valve prolapse with mild mitral regurgitation and mild left atrial enlargement. Left rib fracture Oral cancer (~2002) Treated at [place] with radiation and resection of the left upper jaw. He has since transferred his care to [facility] and is followed by ENT there. Paroxysmal atrial flutter Right wrist fracture Surgical History Surgical History History of nephrectomy (~2011) Patient apparently had a large mass on his right kidney, which was benign. History of oral surgery (~2002) Resection of left upper jaw malignancy. Status post left inguinal herniorrhaphy Family History Family History (Reviewed 06/04/20 @ 20:36 by Alban
--- NOTE | 2020-06-04 16:34 | ADMGEN ---
This patient, Hieu Silva, was admitted to Intensive Care Unit-12 at 1634. Patient/family oriented to hospital policies and general routines including ID bracelet, bed and alarms, visiting hours, pain management, procedures, bathroom and other care routines, personal items, smoking policy, room service/diet, and visiting hours. Valuables list has been completed. Information on how to activate the Rapid Response Team has been discussed. Patient/Family are encouraged to report perceived risks to care and to ask questions if they do not understand what they are told or what they should do.
[2020-06-04] MEDS: SODIUM CHLORIDE 0.9% IV 1,000 ML 75 ML IV CONT (17:05)
[2020-06-04] MEDS: AMIODARONE 150 MG/D5W 100 ML 150 MG/100 ML BAG 600 MG IV CONT (17:06)
[2020-06-04] MEDS: AMIODARONE 360 MG/D5W 200 ML 360 MG/200 ML BAG 33.3 MG IV CONT (17:06)
[2020-06-04 17:09] LABS: Hematocrit 29.2 % (42.0-52.0); Hemoglobin 9.1 g/dL (14.0-18.0)
--- NOTE | 2020-06-04 17:13 | PM.CNCAR ---
Assessment and Plan Assessment and plan (1) Atrial flutter with rapid ventricular response: Code(s): I48.92 - Unspecified atrial flutter Status: Acute Assessment and Plan: he was admitted recently and had a atrial flutter with variable conduction which responded well to diltiazem. Reportedly in the ER his echocardiogram at bedside showed a reduced ejection fraction. 2D echocardiogram withDoppler is ordered.Regarding his atrial flutter, he has not taken his anticoagulation as prescribed and I cannot simply cardiovert him unless he becomes further hemodynamically unstable. If further need to uptitrate his Levophed is needed, with simply try to cardiovert him back to sinus rhythm. Hold metoprolol for now. will reduce his amiodarone than 0.5 mg /minute. (2) Acute hypotension: Code(s): I95.9 - Hypotension, unspecified Status: Acute Assessment and Plan: I do not think he is in septic shock. Likely hypotension In part from some dehydration and atrial flutter with rapid ventricular response. Again he is asymptomatic without any lightheadedness or syncope described to me. Titrate Levophed down as long his MAP is greater than 60 (3) Current use of [facility]cf anticoagulation: Code(s): Z79.01 - alf (current) use of anticoagulants Status: Acute Assessment and Plan: holding Eliquis (4) Bleeding: Code(s): R58 - Hemorrhage, not elsewhere classified Status: Acute Assessment and Plan: probably has a oral malignancy. trend H&H. History of Present Illness History of Present Illness Consult date/time: 06/04/20 17:13 Requesting physician: Jeevan Carlos MD Consult reason: Other (Atrial flutter, hypotension) Reason For Visit: Pneumonia/Septic shock Narrative: date of service 06/04/2020 Reason for consultation: Hypotension, atrial flutter, anticoagulation History patient is a 79-year-old male who came to the hospital because of bleeding in his mouth. He does have his cardiology care performed at [facility]. He is on Eliquis. He only takes Eliquis once daily though rather than twice daily and his decision. He was admitted back in February in seen by Dr. Van at that time for atrial flutter with variable conduction. He responded well to diltiazem and put back on his home dose of metoprolol and discharged to home. 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 Regardless again he came to the hospital because of some bleeding in his mouth. He has had some bleeding he states for at least the past several days. It sometimes stops bleeding but then will open back up and bleed profusely for several hours or longer. He denies any chest pain, shortness of breath, syncope, presyncope, paroxysmal nocturnal dyspnea, orthopnea, edema or palpitations. He is tachycardic with a heart rate in the 120s to 140s and in atypical atrial flutter. He was also hypotensive. Patient states that his blood pressure goes up and down but upon arrival to the emergency room his blood pressure was in the 70 systolic. He was started on Levophed drip in the ER. He is now in the ICU still feeling fine and concern about his oropharynx Review of Systems Review of Systems: All systems reviewed & are unremarkable except as noted in HPI and below Constitutional: Constitutional: Denies body ache(s) and Denies weakness Eyes: Eyes: Denies blurry vision ENT: Denies Normal hearing present and Denies tinnitus Comments: oral bleeding Cardiovascular: Cardiovascular: Denies chest pain Respiratory: Respiratory: Denies dyspnea Gastrointestinal: Gastrointestinal: Denies abdominal pain Comments: PEG tube in place Genitourinary: Genitourinary: Denies dysuria Musculoskeletal: Musculoskeletal: Denies neck pain Integumentary/Breasts: Skin/Breast: Denies dry skin Neurologic: Denies headache(s) Psychiatric: Psychiatric: Denies anxiety Endocrine: Endocrin
[2020-06-04] MEDS: CENTRAL LINE FLUSH 10 ML IV PUSH ×2 (17:16→21:52)
[2020-06-04 17:26] LABS: Troponin I < 0.012 ng/mL (0.000-0.034)
[2020-06-04 22:07] LABS: Troponin I < 0.012 ng/mL (0.000-0.034)
[2020-06-04] MEDS: AMIODARONE 360 MG/D5W 200 ML 360 MG/200 ML BAG 16.7 MG IV CONT (22:57)
[2020-06-04 23:02] LABS: Hematocrit 25.2 % (42.0-52.0); Hemoglobin 7.9 g/dL (14.0-18.0)
[2020-06-05] VITALS (15 sets, daily range): BP systolic 86–116; BP diastolic 56–77; PULSE 89–125; RESP 12–21; TEMP 36.2–36.7; O2SAT 96–100
[2020-06-05 03:31] LABS: Hematocrit 23.9 % (42.0-52.0); Hemoglobin 7.6 g/dL (14.0-18.0); Mean Corpuscular HGB Conc 31.8 g/dl (32-36); Mean Corpuscular Hemoglobin 28.1 pg (26-34); Mean Corpuscular Volume 88.5 fl (80-100); Platelet Count Result 134 k/mm3 (150-375); Red Cell Distribution Width 14.6 % (11.5-14.5); White Blood Count 5.8 K/mm3 (4.5-10.0)
[2020-06-05 03:45] LABS: Alanine Aminotransferase 12 U/L (4-50); Albumin Level 2.6 g/dL (3.5-5.1); Alkaline Phosphatase 66 U/L (38-126); Anion Gap 5 mmol/L (8-16); Aspartate Amino Transferase 19 U/L (17-59); Bilirubin,Total 0.3 mg/dL (0.2-1.3); Blood Urea Nitrogen 30 mg/dL (9-20); Calcium 7.6 mg/dL (8.4-10.2); Carbon Dioxide 25 mmol/L (22-30); Chloride 107 mmol/L (98-107); Estimated CRCL calculation 67 ml/min; Estimated Glomerular Filt Rate > 60; Glucose 100 mg/dL (75-110); Potassium 3.5 mmol/L (3.4-5.0); Sodium 137 mmol/L (137-145)
[2020-06-05 03:56] LABS: Troponin I < 0.012 ng/mL (0.000-0.034)
[2020-06-05] MEDS: SODIUM CHLORIDE 0.9% IV 250 ML 30 ML IV CONT (04:37)
[2020-06-05] MEDS: CENTRAL LINE FLUSH 10 ML IV PUSH ×4 (06:26→21:15)
--- NOTE | 2020-06-05 07:00 | WPDINTPN ---
Progress Note: A&P Assessment and Plan (1) Septic shock: Code(s): A41.9 - Sepsis, unspecified organism; R65.21 - Severe sepsis with septic shock Status: Acute Assessment and Plan: likely multifactorial from blood loss from bleeding, hypovolemia, possible aspiration pneumonia, bactermia and medication including beta-peyton received 2 L of saline bolus in ED. Not responsive to further fluid bolus as per night, on arrival to I continue cautious hydration status post transfusion of 1 unit of packed red cell switch Levophed to Raf-Synephrine due to atrial flutter and was weaned off just now. will continue to monitor as patient may need to go back on if blood pressure drops start hydrocortisone as random cortisol was low despite hypertension hold metoprolol echocardiogram reviewed Summary 1. Left ventricular chamber dimension is normal. 2. Left ventricular systolic function is normal, estimated at 55-60%. 3. There is moderately increased left ventricular wall thickness. 4. The left ventricular diastolic function is indeterminate. 5. Left atrial chamber dimension is severely enlarged. 6. Right atrial chamber dimension is moderately enlarged. 7. There is moderate mitral valve regurgitation. 8. 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 9. There is mild tricuspid valve regurgitation. (2) Bacteremia: Code(s): R78.81 - Bacteremia Status: Acute Assessment and Plan: put in blood culture report states the patient has Gram-positive cocci in his aerobic bottles this could be from his oral cancer involvement or sinusitis continue vancomycin and Zosyn (3) Aspiration pneumonia: Code(s): J69.0 - Pneumonitis due to inhalation of food and vomit Status: Acute Assessment and Plan: see CT shows infiltrate in left lower lobe and mucus plugging could be aspiration of blood verses food/ water although patient denies eating any food to mouth and admits to taking only water and relying on his tube feeds culture sent continue Zosyn (4) Atrial flutter with rapid ventricular response: Code(s): I48.92 - Unspecified atrial flutter Status: Acute Assessment and Plan: on telemetry appears to be in sinus tach right now switched to Raf-Synephrine for hypertension amiodarone bolus and drip repeat EKG this morning (5) Bleeding: Code(s): R58 - Hemorrhage, not elsewhere classified Status: Acute Assessment and Plan: bleeding from past surgical site versus cancer recurrence Eliquis Was discontinued no active bleeding seen on exam although I saw old blood in posterior pharynx patient was given 1 unit of packed red cells which could be dropped from hemodilution as patient received IV fluids will monitor hemoglobin transfuse more PRBC as needed (6) 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 CT head and neck was done and showed IMPRESSION: 1. Osseous erosion of the right maxillary sinus bentley inferiorly, contiguous to more posterior extension of soft tissue to the palatine tonsil, as previously seen. 2. Development of nearly opacified right maxillary and ethmoid sinuses, could be sinusitis, ostiomeatal unit obstructive pattern. Can't determine how much is malignancy. 3. Right-sided submandibular, internal jugular chain metastatic lymphadenopathy. Will try to transfer patient to [facility] for further evaluation. patient is agreeable to transfer. I have spoken to transfer line and waiting for call back from ENT Continue to hold Eliquis Additional Plan DVT prophylaxis - SCDs Nutrition - resume tube feeds as per dietitian recommendation Code Status - Full Code Total Critical Care Time - 31 minutes Due to a high probability of clinically significant, life threatening deterioration, the patient required my h
--- NOTE | 2020-06-05 07:25 | ECG_ITS ---
Measurements Intervals [place] Rate: 125 P: [place]: 0 QRS: 44 QRSD: 114 T: -3 QT: 321 QTc: 463 Interpretive Statements ATRIAL FLUTTER/TACHYCARDIA WITH RAPID VENTRICULAR RESPONSE INCOMPLETE RIGHT BUNDLE BRANCH BLOCK BORDERLINE ST-T WAVE ABNORMALITY- INFERIOR LEADS ABNORMAL ECG Electronically Signed On 06-05-2020 8:08:18 CDT by Cedric Vasquez D.O.
[2020-06-05 08:28] LABS: Hematocrit 27.3 % (42.0-52.0); Hemoglobin 8.6 g/dL (14.0-18.0)
--- NOTE | 2020-06-05 10:15 | PM.PNCARD ---
Progress Note: A&P Assessment and Plan (1) Atrial flutter with rapid ventricular response: Code(s): I48.92 - Unspecified atrial flutter Status: Acute Assessment and Plan: he was admitted recently and had a atrial flutter with variable conduction which responded well to diltiazem. Reportedly in the ER his echocardiogram at bedside showed a reduced ejection fraction. continue amiodarone than 0.5 mg /minute. if his blood pressure remains reasonable after stopping his phenylephrine, will resume some oral medication such as metoprolol (2) Acute hypotension: Code(s): I95.9 - Hypotension, unspecified Status: Acute Assessment and Plan: I do not think he is in septic shock. Likely hypotension In part from some dehydration and atrial flutter with rapid ventricular response. Again he is asymptomatic without any lightheadedness or syncope described to me. discontinue phenylephrine (3) Current use of detention anticoagulation: Code(s): Z79.01 - custodial (current) use of anticoagulants Status: Acute Assessment and Plan: holding Eliquis for now. (4) Bleeding: Code(s): R58 - Hemorrhage, not elsewhere classified Status: Acute Assessment and Plan: CT scans reviewed malignancy present. ? Transfer Subjective Date/time seen: 06/05/20 10:15 Interval history: chief complaint bleeding from mouth Date of service 06/05/2020: No further bleeding. Heart rate up and down. Otherwise stable and denies complaints chest pain, shortness breath, syncope or presyncope Review of Systems Review of Systems: All systems reviewed & are unremarkable except as noted in HPI and below Constitutional: Constitutional: Denies body ache(s), Denies fatigue, Denies headache(s) and Denies weakness Eyes: Eyes: Denies blurry vision ENT: Denies Normal hearing present, Denies headache(s), Denies lip swelling, Denies neck pain and Denies tinnitus Cardiovascular: Cardiovascular: Denies chest pain and Denies dyspnea Respiratory: Respiratory: Denies dyspnea Gastrointestinal: Gastrointestinal: Denies abdominal pain Genitourinary: Genitourinary: Denies dysuria Musculoskeletal: Musculoskeletal: Denies neck pain Integumentary/Breasts: Skin/Breast: Denies dry skin Neurologic: Denies Normal hearing present, Denies headache(s) and Denies weakness Psychiatric: Psychiatric: Denies anxiety Endocrine: Endocrine: Denies fatigue Hematologic/Lymphatic: Hematologic/Lymphatic: Denies easy bleeding Allergic/Immunologic: Allergic/Immunologic: Denies lip swelling Exam Narrative: Exam Narrative: alert oriented. Speech is a bit garbled Const: General: comfortable HENMT: Other: oral lesions noted with blood around his dentures/bridge Eyes: Sclera: sclerae normal Neck: Neck: supple and no JVD Chest: Other: No reproducible chest wall pain to palpation Resp: Auscultation: clear to auscultation bilaterally Cardio: Rate: tachycardic Rhythm: abnormal rhythm regularly irregular Skin: General skin exam: normal color Neuro: Cranial nerves: No Normal hearing present Cognition (Neuro): normal cognition Motor exam (neuro): Normal motor muscle tone present throughout Extrem: General: normal to inspection and no edema Psych: Mental Status: mental status grossly normal Objective Data Vital Signs Vital Signs: Vital Signs - 24 hr 06/04/20 10:49 06/04/20 11:10 06/04/20 12:23 Temperature Pulse Rate 106 H 129 H 109 H Respiratory Rate 19 20 Blood Pressure 75/65 L 89/66 L 77/57 L Pulse Oximetry 97 98 06/04/20 12:30 06/04/20 13:19 06/04/20 13:21 Temperature Pulse Rate 109 H 121 H 120 H Respiratory Rate 20 20 Blood Pressure 99/87 L 107/60 Pulse Oximetry 100 100 06/04/20 15:18 06/04/20 16:00 06/04/20 16:59 Temperature Pulse Rate 142 H 100 145 H Respiratory Rate 20 21 H Blood Pressure 94/76 L 95/69 L Pulse Oximetry 99 100 06/04/20
--- NOTE | 2020-06-05 10:48 | P.PNCROSS_ITS ---
Event Note Event Note Event Note: Spoke to [facility] transfer line and Dr. Hong from ENT. discuss case. Due to lack of ICU bed they cannot take patient at this time but recommended to call again once patient is downgraded out of ICU for a floor transfer which could be easier due to bed status. ENT will consult once patient is transferred to [facility]. no other recommendations at this time. I will transfer patient out of ICU if he stays off of vasopressors and will re-attempt to transfer to [facility] for further evaluation tomorrow. Discussed with Dr. Vincent
--- NOTE | 2020-06-05 11:07 | PCDIET ---
ICU Rounding Note: Patient remains NPO with order to start bolus feedings per RD recommendation (Jevity 1.2 300mL every 4 hours with 30mL water flush every 4 hours after feedings). Last recorded weight is 73.9kg which is increased from last review. +I/O. Bowel Motility: No BM documented, as of yet. Per RN, patient with soft abdomen. +PEG. Labs Reviewed: Hgb (8.6), Hct (27.3), BUN (30), Alb (2.6), Gee Ca (8.72) Meds Noted: Zosyn, Vancomycin, KCl Additional Notes: No documented skin breakdown. Following daily in ICU rounds. Assessing/reassessing every Wednesday/Wednesday.
[2020-06-05] MEDS: POTASSIUM CHLORIDE 20 MEQ PACKET (FOR LIQUID) 40 MEQ FEED TUBE (11:10)
[2020-06-05] MEDS: AMIODARONE 360 MG/D5W 200 ML 360 MG/200 ML BAG 16.7 MG IV CONT (12:20)
[2020-06-05] MEDS: SODIUM CHLORIDE 0.9% IV 1,000 ML 75 ML IV CONT (12:21)
[2020-06-05 15:59] LABS: Hematocrit 27.1 % (42.0-52.0); Hemoglobin 8.6 g/dL (14.0-18.0)
--- NOTE | 2020-06-05 16:51 | PM.IMPN ---
Progress Note: A&P Assessment and Plan (1) Atrial flutter with rapid ventricular response: Code(s): I48.92 - Unspecified atrial flutter Status: Acute Assessment and Plan: He has been started on amiodarone drip with much improvement in his rate and blood pressures. Metoprolol and Eliquis are on hold at this time. Dr. David's input is appreciated. Transfer to the floor on telemetry (2) Mass of oral cavity: Code(s): K13.79 - Other lesions of oral mucosa Status: Acute Assessment and Plan: Exophytic and friable mass near the right palatine tonsil with evidence of prior bleeding, very concerning for recurrent oral cancer. Pt not wanting transfer (3) Acute blood loss anemia: Code(s): D62 - Acute posthemorrhagic anemia Status: Acute Assessment and Plan: Secondary to bleeding oral mass. Trend hemoglobin and hematocrit, and transfuse if indicated.H bis 8 today Apixaban on hold as detailed above. (4) Mucus plugging of bronchi: Code(s): J98.09 - Other diseases of bronchus, not elsewhere classified Status: Acute Assessment and Plan: Will continue Zosyn as ordered per Dr. Carlos for possible aspiration pneumonia. Initiate aspiration precautions and continue NPO diet aside from tube feeds. (5) Hypotension: Code(s): I95.9 - Hypotension, unspecified Status: Acute Assessment and Plan: Likely multifactorial in etiology and due to acute blood loss anemia as well as atrial flutter with rapid ventricular response. And dehydration. 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 Pt had blood transfusion, hb up to 8. Pt seen in ICU stable for transfer to medical floor. Pt does not want to go to [place] unless it is very necessary. Review of Systems Review of Systems: All systems reviewed & are unremarkable except as noted in HPI and below Exam Narrative: Exam Narrative: General: Thin, frail elderly male sitting at the side of the bed in no acute distress. He is in good spirits. Weight: 70 kilograms. BMI: 20.9. HEENT: PERRL, EOMI. Sclerae anicteric. Right maxillary sinus is tender to palpation. Oral mucosa tacky. There is an upper jaw prostatic in place, which was not removed. An exophytic, friable mass is noted near the right palatine tonsil with evidence of prior bleeding. There is dry blood and a clot in the posterior oropharynx. There is a slight odor that may be due to this mass or the dried blood. Neck: Supple. Right IJ central line in place. Respiratory: Lungs are clear to auscultation. Respirations are even and nonlabored. He is speaking in full sentences. Cardiovascular: Tachycardic with telemetry showing atrial flutter with rapid ventricular response, with rates in the 140s. Gastrointestinal: Abdomen is soft, nontender, and nondistended with positive bowel sounds. Tube feed site is clean, dry, intact. Skin: Warm and dry. Slightly pale. Extremities: No cyanosis, clubbing, or edema. Radial and pedal pulses intact. Neurological: Alert. Cranial nerves 2-12 are grossly intact. No gross focal deficits to casual conversation. Psychiatric: Pleasant and cooperative with normal mood and affect. Judgment and insight intact. Objective Data Vital Signs Vital Signs: Vital Signs - 24 hr 06/04/20 16:59 06/04/20 17
--- NOTE | 2020-06-05 18:32 | PC.NURSE ---
This patient, Hieu Silva, was received from ICU on 06/05/20 at 1832. Personal belongings list checked and signed. Patient/family oriented to unit policies and routines. Report received from TANNER Tan.
--- NOTE | 2020-06-05 18:35 | PC.NURSE ---
This patient, Hieu Silva, was transferred to [facility] on 06/05/20 at 1830. Personal belongings sent with patient. Report given to Itzel HART. Appropriate documentation sent with patient.
[2020-06-06] VITALS (11 sets, daily range): BP systolic 99–121; BP diastolic 63–69; PULSE 122–129; RESP 18–118; TEMP 36.3–36.9; O2SAT 97
[2020-06-06] MEDS: SODIUM CHLORIDE 0.9% IV 1,000 ML 75 ML IV CONT (01:58)
[2020-06-06 06:10] LABS: Hemoglobin 7.9 g/dL (14.0-18.0); Mean Corpuscular HGB Conc 31.6 g/dl (32-36); Mean Corpuscular Volume 88.7 fl (80-100); Mean Platelet Volume 9.7 fl (7.4-10.4); Platelet Count Result 107 k/mm3 (150-375); Red Blood Count 2.82 M/mm3 (4.6-6.20); Red Cell Distribution Width 14.6 % (11.5-14.5); White Blood Count 3.5 K/mm3 (4.5-10.0)
[2020-06-06] MEDS: CENTRAL LINE FLUSH 10 ML IV PUSH ×3 (06:13→17:11)
[2020-06-06 06:24] LABS: Alanine Aminotransferase 12 U/L (4-50); Albumin Level 2.6 g/dL (3.5-5.1); Alkaline Phosphatase 63 U/L (38-126); Anion Gap 3 mmol/L (8-16); Aspartate Amino Transferase 21 U/L (17-59); Bilirubin,Total 0.1 mg/dL (0.2-1.3); Blood Urea Nitrogen 17 mg/dL (9-20); Calcium 7.5 mg/dL (8.4-10.2); Carbon Dioxide 26 mmol/L (22-30); Chloride 108 mmol/L (98-107); Estimated CRCL calculation 82 ml/min; Estimated Glomerular Filt Rate > 60; Glucose 187 mg/dL (75-110); Magnesium 1.9 mg/dL (1.6-2.3); Potassium 3.8 mmol/L (3.4-5.0); Sodium 137 mmol/L (137-145)
--- NOTE | 2020-06-06 10:01 | PM.PNCARD ---
Progress Note: A&P Assessment and Plan (1) Atrial flutter with rapid ventricular response: Code(s): I48.92 - Unspecified atrial flutter Status: Acute Assessment and Plan: he was admitted recently and had a atrial flutter with variable conduction which responded well to diltiazem. Will try some oral amiodarone for rate control 200 mg p.o. b.i.d. off anticoagulation because bleeding tumor (2) Acute hypotension: Code(s): I95.9 - Hypotension, unspecified Status: Acute Assessment and Plan: predominantly resolved. 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 (4) Bleeding: Code(s): R58 - Hemorrhage, not elsewhere classified Status: Acute Assessment and Plan: CT scans reviewed malignancy present. ? Transfer Subjective Date/time seen: 06/06/20 10:01 Interval history: chief complaint bleeding from mouth Date of service 06/06/2020: No further bleeding. Heart rate up and down. Otherwise stable and denies complaints chest pain, shortness breath, syncope or presyncope. He does express concerns to me also about going to [employer]. Review of Systems Review of Systems: All systems reviewed & are unremarkable except as noted in HPI and below Constitutional: Constitutional: Denies body ache(s), Denies fatigue, Denies headache(s) and Denies weakness Eyes: Eyes: Denies blurry vision ENT: Denies Normal hearing present, Denies headache(s), Denies lip swelling, Denies neck pain and Denies tinnitus Cardiovascular: Cardiovascular: Denies chest pain and Denies dyspnea Respiratory: Respiratory: Denies dyspnea Gastrointestinal: Gastrointestinal: Denies abdominal pain Genitourinary: Genitourinary: Denies dysuria Musculoskeletal: Musculoskeletal: Denies neck pain Integumentary/Breasts: Skin/Breast: Denies dry skin Neurologic: Denies Normal hearing present, Denies headache(s) and Denies weakness Psychiatric: Psychiatric: Denies anxiety Endocrine: Endocrine: Denies fatigue Hematologic/Lymphatic: Hematologic/Lymphatic: Denies easy bleeding Allergic/Immunologic: Allergic/Immunologic: Denies lip swelling Exam Narrative: Exam Narrative: alert oriented. Speech is a bit garbled Const: General: comfortable HENMT: Other: oral lesions noted with blood around his dentures/bridge Eyes: Sclera: sclerae normal Neck: Neck: supple and no JVD Chest: Other: No reproducible chest wall pain to palpation Resp: Auscultation: clear to auscultation bilaterally Cardio: Rate: tachycardic Rhythm: abnormal rhythm regularly irregular Skin: General skin exam: normal color Neuro: Cranial nerves: No Normal hearing present Cognition (Neuro): normal cognition Motor exam (neuro): Normal motor muscle tone present throughout Extrem: General: normal to inspection and no edema Psych: Mental Status: mental status grossly normal Objective Data Vital Signs Vital Signs: Vital Signs - 24 hr 06/05/20 12:00 06/05/20 14:00 06/05/20 16:00 Temperature 36.4 C L 36.7 C Pulse Rate 102 H 102 H 103 H Respiratory Rate 17 21 H 13 Blood Pressure 107/74 108/73 112/77 Pulse Oximetry 100 96 98 06/05/20 22:03 06/06/20 00:00 06/06/20 02:16 Temperature 36.3 C L 36.3 C L Pulse Rate 97 129 H 122 H Respiratory Rate 20 118 H Blood Pressure 97/68 L 106/63 99/66 L Pulse Oximetry 97 97 06/06/20 04:00 06/06/20 04:11 06/06/20 05:45 Temperature 36.4 C Pulse Rate 129 H 129 H 129 H Respiratory Rate 18 Blood Pressure 99/66 L 100/67 Pulse Oximetry 97 Intake/Output Intake/Output: Intake & Output 06/03/20 06/04/20 06/05/20 06/06/20 23:59 23:59 23:59 23:59 Intake Total 2050 2136.2 1350 Output Total 200 1525 600 Balance 1850 611.2 750 Meds/Results Medications: Active Medications Generi
[2020-06-06] MEDS: AMIODARONE HCL 200 MG TABLET PO ×2 (10:41→17:11)
--- NOTE | 2020-06-06 12:00 | PC.NURSE ---
Called pharmacy for 1200 dose of Zosyn and left a message with the pharmacist.
--- NOTE | 2020-06-06 13:00 | PC.NURSE ---
2nd attempt to call pharmacy for 1200 dose of Zosyn left a message with pharmacy.
--- NOTE | 2020-06-06 13:22 | PM.IMPN ---
Progress Note: A&P Assessment and Plan (1) Atrial flutter with rapid ventricular response: Code(s): I48.92 - Unspecified atrial flutter Status: Resolved Assessment and Plan: Pt transitioned to oral amiodraone now (2) Mass of oral cavity: Code(s): K13.79 - Other lesions of oral mucosa Status: Acute Assessment and Plan: Exophytic and friable mass near the right palatine tonsil with evidence of prior bleeding, very concerning for recurrent oral cancer. Pt has agreed on transfer. I am working on it (3) Acute blood loss anemia: Code(s): D62 - Acute posthemorrhagic anemia Status: Resolved Assessment and Plan: Secondary to bleeding oral mass. Trend hemoglobin and hematocrit, and transfuse if indicated.H bis 7.9 today. Stable. Apixaban on hold as detailed above. (4) Mucus plugging of bronchi: Code(s): J98.09 - Other diseases of bronchus, not elsewhere classified Status: Acute Assessment and Plan: Will continue Zosyn as ordered per Dr. Carlos for possible aspiration pneumonia. Initiate aspiration precautions and continue NPO diet aside from tube feeds. 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 . discussed with DR SHAQUILLE RHODES awaiting hospitalist Jonah to call me back Review of Systems Review of Systems: All systems reviewed & are unremarkable except as noted in HPI and below Constitutional: Comments: weakness no further bleeding Exam Narrative: Exam Narrative: General: Thin, frail elderly male sitting at the side of the bed in no acute distress. HEENT: An exophytic, friable mass is noted near the right palatine tonsil with evidence of prior bleeding. Neck: Supple. Right IJ central line in place. Respiratory: Lungs are clear to auscultation. Cardiovascular: AF controlled Gastrointestinal: Abdomen is soft, nontender, and nondistended with positive bowel sounds. Tube feed site is clean, dry, intact. Skin: Warm and dry. Slightly pale. Extremities: No cyanosis, clubbing, or edema. Radial and pedal pulses intact. Neurological: Alert. Cranial nerves 2-12 are grossly intact. No gross focal deficits to casual conversation. Psychiatric: Pleasant and cooperative with normal mood and affect. Judgment and insight intact. Objective Data Vital Signs Vital Signs: Vital Signs - 24 hr 06/05/20 14:00 06/05/20 16:00 06/05/20 22:03 Temperature 36.7 C 36.3 C L Pulse Rate 102 H 103 H 97 Respiratory Rate 21 H 13 20 Blood Pressure 108/73 112/77 97/68 L Pulse Oximetry 96 98 97 06/06/20 00:00 06/06/20 02:16 06/06/20 04:00 Temperature 36.3 C L Pulse Rate 129 H 122 H 129 H Respiratory Rate 118 H Blood Pressure 106/63 99/66 L Pulse Oximetry 97 06/06/20 04:11 06/06/20 05:45 06/06/20 08:00 Temperature 36.4 C Pulse Rate 129 H 129 H 128 H Respiratory Rate 18 Blood Pressure 99/66 L 100/67 Pulse Oximetry 97 08/13/20 10:41 Temperature Pulse Rate 128 H Respiratory Rate Blood Pressure Pulse Oximetry Intake/Output Intake/Output: Intake & Output 06/03/20 06/04/20 06/05/20 06/06/20 23:59 23:59 23:59 23:59 Intake Total 2049 2136.2 1350
--- NOTE | 2020-06-06 16:51 | P.TS_ITS ---
Transfer Discharge Sum: Prov Provider Date of admission: 06/04/20 14:59 Primary care physician: Galindo Krishnan, MD Admitting clinician: Sina Diamond MD Consults: 06/04/20 Consult to Dietitian Routine Reason for Consult:: Tube feed assessment Consult to Physician Routine Comment: SPOKE WITH RANJEET Consulting Provider: Mg David call or contact centre operator/MD group to consult: Cardiology/[place] Reason for consultation: Aflutter, Hypotension Has provider been notified: Yes 06/04/20 13:52 Consult to Physician Routine Comment: Consulting Provider: Jeevan Carlos Reason for consultation: Hypotension, aspiration pneumonia Has provider been notified: Yes DS: Admitting Diagnosis Admitting Diagnosis Admitting Diagnosis: Bleeding from mouth. DS: Discharge Diagnosis Discharge Diagnosis (1) Atrial flutter with rapid ventricular response: Code(s): I48.92 - Unspecified atrial flutter Status: Resolved Assessment and Plan: * Pt transitioned to oral amiodraone * Was given amiodarone bolus in ICU, now controlled on oral amiodarone. (2) Mass of oral cavity: Code(s): K13.79 - Other lesions of oral mucosa Status: Acute Assessment and Plan: * Exophytic and friable mass near the right palatine tonsil with evidence of prior bleeding, very concerning for recurrent oral cancer. * Pt has agreed on transfer. (3) Acute blood loss anemia: Code(s): D62 - Acute posthemorrhagic anemia Status: Resolved Assessment and Plan: * Secondary to bleeding oral mass. * Trend hemoglobin and hematocrit, hb is 7.9 today. Stable. * Apixaban on hold as detailed above. (4) Mucus plugging of bronchi: Code(s): J98.09 - Other diseases of bronchus, not elsewhere classified Status: Acute Assessment and Plan: * Will continue Zosyn as ordered per Dr. Carlos for possible aspiration pneumonia. * Initiate aspiration precautions. Pt is Npo with tube feeds. Pt treated with iv zosyn and iv vancomycin. Bc shows Strep viridans. (5) Hypotension: Code(s): I95.9 - Hypotension, unspecified Status: Resolved Assessment and Plan: * Pt was treated with iv fluids. Was on vasopressors in ICU not on any levophed now. Transfer Discharge Sum: Med Medications Active and Home Medications: Home Medications Eliquis 5 mg HS 09/06/19 [History Confirmed 06/04/20] metoprolol tartrate 12.5 mg FEEDING TUBE DAILY 06/04/20 [History Confirmed 06/04/20] Active Medications Amiodarone HCl (Pacerone) 200 mg PO BID [facility] Last Admin: 06/06/20 10:41 Dose: 200 mg Documented by: Sodium Chloride (Normal Saline Iv) 1,000 mls @ 75 mls/hr IV CONT .[id number] [facility] Last Admin: 06/06/20 01:58 Dose: 75 mls/hr Documented by: Piperacillin/Tazobactam/Dextrose (Zosyn 3.375 Gm/D5w 50ml Pm) 3.375 gm in 50 mls @ 100 mls/hr IVPB Q6HR [facility] Last Infusion: 06/06/20 14:56 Dose: Infused Documented by: Vancomycin HCl (Vancomycin 1,000 Mg/D5w 250 Ml) 1,000 mg in 250 mls @ 250 mls/hr IVPB Q18H [facility] Last Infusion: 06/06/20 05:50 Dose: Infused Documented by: Travis
--- NOTE | 2020-06-06 16:51 | PM.TDS ---
Transfer Discharge Sum: Prov Provider Date of admission: 06/04/20 14:59 Primary care physician: Galindo Krishnan, MD Admitting clinician: Sina Diamond MD Consults: 06/04/20 Consult to Dietitian Routine Reason for Consult:: Tube feed assessment Consult to Physician Routine Comment: SPOKE WITH RANJEET Consulting Provider: Mg David call center operator/MD group to consult: Cardiology/[facility] Reason for consultation: Aflutter, Hypotension Has provider been notified: Yes 06/04/20 13:52 Consult to Physician Routine Comment: Consulting Provider: Jeevan Carlos Reason for consultation: Hypotension, aspiration pneumonia Has provider been notified: Yes DS: Admitting Diagnosis Admitting Diagnosis Admitting Diagnosis: Bleeding from mouth. DS: Discharge Diagnosis Discharge Diagnosis (1) Atrial flutter with rapid ventricular response: Code(s): I48.92 - Unspecified atrial flutter Status: Resolved Assessment and Plan: Pt transitioned to oral amiodraone Was given amiodarone bolus in ICU, now controlled on oral amiodarone. 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 Pt has agreed on transfer. (3) Acute blood loss anemia: Code(s): D62 - Acute posthemorrhagic anemia Status: Resolved Assessment and Plan: Secondary to bleeding oral mass. Trend hemoglobin and hematocrit, hb is 7.9 today. Stable. Apixaban on hold as detailed above. (4) Mucus plugging of bronchi: Code(s): J98.09 - Other diseases of bronchus, not elsewhere classified Status: Acute Assessment and Plan: Will continue Zosyn as ordered per Dr. Carlos for possible aspiration pneumonia. Initiate aspiration precautions. Pt is Npo with tube feeds. Pt treated with iv zosyn and iv vancomycin. Bc shows Strep viridans. (5) Hypotension: Code(s): I95.9 - Hypotension, unspecified Status: Resolved Assessment and Plan: Pt was treated with iv fluids. Was on vasopressors in ICU not on any levophed now. Transfer Discharge Sum: Med Medications Active and Home Medications: Home Medications Eliquis 5 mg HS 09/06/19 [History Confirmed 06/04/20] metoprolol tartrate 12.5 mg FEEDING TUBE DAILY 06/04/20 [History Confirmed 06/04/20] Active Medications Amiodarone HCl (Pacerone) 200 mg PO BID [facility] Last Admin: 06/06/20 10:41 Dose: 200 mg Documented by: Sodium Chloride (Normal Saline Iv) 1,000 mls @ 75 mls/hr IV CONT .[id number] [facility] Last Admin: 06/06/20 01:58 Dose: 75 mls/hr Documented by: Piperacillin/Tazobactam/Dextrose (Zosyn 3.375 Gm/D5w 50ml Pm) 3.375 gm in 50 mls @ 100 mls/hr IVPB Q6HR [facility] Last Infusion: 06/06/20 14:56 Dose: Infused Documented by: Vancomycin HCl (Vancomycin 1,000 Mg/D5w 250 Ml) 1,000 mg in 250 mls @ 250 mls/hr IVPB Q18H [facility] Last Infusion: 06/06/20 05:50 Dose: Infused Documented by: Ondansetron HCl (Zofran Inj) 4 mg IV PUSH Q4H PRN PRN Reason: Nausea Sodium Chloride (Central Line Flush) 10 ml IV PUSH Q8HR [facility] Last Admin: 06/06/20 14:26 Dose: 10 ml Documented by: Sodium Chloride (Central Line Flush) 10 ml IV PUSH DAILY@1800 [facility] Last Admin: 06/05/20 17:39 Dose: 10 ml Documented by: Sodium Chloride (Central Line Flush) 20 ml IV PUSH PRN PRN PRN Reason: after blood draws Transfer Discharge Sum: Hosp Hospital Course Hospital course: Hieu Silveira Shira is a 79 year old male Time Spent with Patient Time attestation: Total time spent
--- NOTE | 2020-06-06 17:07 | PC.NURSE ---
Called report for transfer to [facility] to [facility]. Called and informed Hope (Medical Power of Account Manager Employee Benefits) and informed the daughter that the patient is being transferred tonight over to [facility] via ambulance. Patient being transferred via ambulance to bed 7939.
== END 2020-06-06 18:55 | disposition short-term general hospital (02) | DRG 314 ==
LOC: ANHED 13:41 → ANHICU 14:25 → ANH2MED 06-06 11:48 → ANHICU 06-10 10:02
PROVIDERS: Internal Medicine; Physician Assistant; Admitting Provider Internal Medicine; Emergency Provider Emergency Medicine; PCP Internal Medicine; Visit Provider Family Medicine
DX: I95.9 Hypotension, unspecified (principal); J69.0 Pneumonitis due to inhalation of food and vomit; I48.92 Unspecified atrial flutter; D62 Acute posthemorrhagic anemia; K13.79 Other lesions of oral mucosa; J98.09 Other diseases of bronchus, not elsewhere classified; Z79.01 Long term (current) use of anticoagulants; Z87.891 Personal history of nicotine dependence; Z85.819 Personal history of malignant neoplasm of unspecified site of lip, oral cavity, and pharynx; Z92.3 Personal history of irradiation; Z93.1 Gastrostomy status
CPT/HCPCS: 36415; 36430; 36556; 70491; 71045; 71260; 74177; 80053; 81001; 82533; 83605; 83735; 83880; 84484; 85014; 85018; 85025; 85027; 85610; 85730; 86850; 86900; 86901; 86923; 87040; 87077; 87186; 93005; 93306; 96361; 96365; 96367; 99285; A9270; C1751; G0378; J0282; J2370; J2543; J3370; J7030; J7040; J7050; J7060; P9016; Q9967

== ENCOUNTER 2020-10-04 09:08 | Inpatient (IN) | payer MEDICARE, SELFPAY ==
[2020-10-04] VITALS (14 sets, daily range): BP systolic 83–107; BP diastolic 44–81; PULSE 102–158; RESP 18–40; TEMP 36.2–36.4; O2SAT 83–99; BMI 21.4
--- NOTE | ~2020-10-04 | XR_ITS ---
XR chest 1V portable DATE: 10/04/2020 09:45 INDICATION: Cough TECHNIQUE: Portable AP chest radiographs on 10/04/2020 at 0943 and 0945 hours COMPARISON: 06/04/2020 portable AP chest 06/04/2020 CT chest abdomen pelvis FINDINGS: Cardiomegaly. There is pulmonary vascular congestion and redistribution, suggesting congest genet heart failure. Aortic calcification. Bilateral hyperinflation, consistent with emphysema. There is extensive patchy infiltrate throughout most of the right lung, relatively sparing the right apex. There is patchy consolidating infiltrate in the left retrocardiac area, left lower lobe. No pleural effusion. Diffuse osteopenia. IMPRESSION: Bilateral infiltrates, right greater than left COPD; differential diagnosis includes pneu monia, less likely pulmonary edema Cardiomegaly, pulmonary vascular congestion, suggesting possible congestive heart failure Reviewed, dictated and finalized at location A. [employer]IRSPRING ASSEMBLER IMPRESSION: Bilateral infiltrates, right greater than left COPD; differential d iagnosis includes pneumonia, less likely pulmonary edema Cardiomegaly, pulmonary vascular congestion, suggesting possible congestive hea rt failure
--- NOTE | 2020-10-04 09:23 | ECG_ITS ---
Measurements Intervals [place] Rate: 149 P: [place]: 0 QRS: 71 QRSD: 121 T: 11 QT: 307 QTc: 484 Interpretive Statements ATRIAL FIBRILLATION WITH RAPID VENTRICULAR RESPONSE RIGHT BUNDLE BRANCH BLOCK BASELINE ARTIFACT- I, III, AVR, AVL, AVF, V1-V3 ABNORMAL ECG Electronically Signed On 10-04-2020 10:37:21 CLIENT APPLICATION SUPPORT ENGINEER by Cedric Vasquez D.O.
--- NOTE | 2020-10-04 09:39 | ED.SOB ---
HPI - SOB/Dyspnea General Chief Complaint: Shortness of Breath/Dyspnea Stated Complaint: sob/cough Time Seen by Provider: 10/04/20 09:22 Source: RN notes reviewed History of Present Illness HPI Narrative: Patient presents to emergency department from home for shortness of breath. Patient states symptoms been ongoing for the past 1 week progressing daily. States he has been feeling short of breath and weak with a cough that is been nonproductive. 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 and is followed at [facility] for oncology Related Data Home Medications Medication Instructions Recorded Confirmed Eliquis 10 mg DAILY 09/06/19 06/04/20 Allergies Allergy/AdvReac Type Severity Reaction Status Date / Time No Known Allergies Allergy Mild Verified 10/04/20 09:30 Review of Systems Review of Systems: Narrative: Gen.: Denies fevers or chills ENT: Denies congestion Respiratory: See HPI CV: Denies chest pain or palpitations GI: Denies abdominal pain nausea, emesis or diarrhea denies burning, urgency, frequency or hematuria Musculoskeletal: Denies back pain or muscle pain Neuro: Denies numbness, tingling, weakness or focal weakness Skin: Denies rash Except as documented, all other systems reviewed and negative [facility] Past Medical History Medical History Anxiety Current use of terminal worker anticoagulation Dysphagia causing pulmonary aspiration with swallowing Status post PEG tube insertion in December 2019. History of echocardiogram Echocardiogram in May 2014 showed vigorous contractility of the left ventricle with ejection fraction of 70%, mild anterior leaflet mitral valve prolapse with mild mitral regurgitation and mild left atrial enlargement. Left rib fracture Oral cancer (~2002) Treated at [facility] with radiation and resection of the left upper jaw. He has since transferred his care to [facility] and is followed by ENT there. Paroxysmal atrial flutter Right wrist fracture Surgical History Surgical History History of nephrectomy (~2011) Patient apparently had a large mass on his right kidney, which was benign. History of oral surgery (~2002) Resection of left upper jaw malignancy. Status post left inguinal herniorrhaphy Family History Family History Father Acute myocardial infarction Diabetes mellitus Social History Social History Social History: The patient lives in his own home in [place]. He is and has 3 children. He has a cat that lives at home with him. 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 He smoked up to a pack of cigarettes per day and quit several years ago. He drinks an occasional beer. No drug use. His daughter, Lisette Dai, is his surrogate decision maker and he wishes to be a full code. Gender identity (if verbalized by the patient): Male Spiritual care concerns: No Agree to blood products: Yes Exam Narrative: Exam Narrative: APPEARANCE: No acute distress, nontoxic, resting in bed EYES: EOMI HEENT: Normocephalic, atraumatic, RESPIRATORY: N mild respiratory distress crackles throughout the bilateral lung rogers CARDIOVASCULAR: Tachycardic and irregular without murmurs rubs or gallops. ABDOMINAL: Soft, nontender, nondistended, no rebound or guarding PEG tube present MUSCULOSKELETAl: Moves all extremities. No clubbing, cyanosis or edema. NEURO: Awake and alert. Following commands, speech normal, no focal deficits
[2020-10-04] MEDS: SODIUM CHLORIDE 0.9% IV 500 ML 999 ML IV CONT (09:42)
[2020-10-04 09:55] LABS: Basophils Absolute Auto 0.1 K/mm3 (0.0-0.1); Basophils Percent Auto 0.6 % (0.2-1.2); Eosinophils Percent Auto 0.1 % (0-4.4); Hematocrit 43.7 % (42.0-52.0); Hemoglobin 13.6 g/dL (14.0-18.0); Immature Granulocyte Absolute 0.12 K/mm3 (0.00-0.031); Immature Granulocyte Percent A 1.1 % (0-0.5); Lymphocytes Absolute Auto 1.12 K/mm3 (0.9-3.2); Lymphocytes Percent Auto 10.3 % (18.3-44.2); Mean Corpuscular HGB Conc 31.1 g/dl (32-36); Mean Corpuscular Hemoglobin 25.1 pg (26-34); Mean Corpuscular Volume 80.6 fl (80-100); Monocytes Percent Auto 8.9 % (2.6-8.5); Neutrophils Absolute Auto 8.6 K/mm3 (1.3-6.7); Platelet Count Result 253 k/mm3 (150-375); Red Blood Count 5.42 M/mm3 (4.6-6.20); Red Cell Distribution Width 18.6 % (11.5-14.5); White Blood Count 10.9 K/mm3 (4.5-10.0)
[2020-10-04 09:58] LABS: INR 1.6; Prothrombin Time 19.4 Seconds (11.1-14.7)
[2020-10-04 09:59] LABS: Partial Thromboplastin Time 35.8 SECONDS (22.3-36.8)
[2020-10-04 10:00] LABS: Anion Gap 6 mmol/L (8-16); Blood Urea Nitrogen 49 mg/dL (9-20); Calcium 9.3 mg/dL (8.4-10.2); Carbon Dioxide 30 mmol/L (22-30); Chloride 104 mmol/L (98-107); Estimated Glomerular Filt Rate 59; Glucose 139 mg/dL (75-110); NT Pro B Type Natriuretic Pept 4290 PG/ML (5-100); Potassium 3.6 mmol/L (3.4-5.0); Sodium 140 mmol/L (137-145); Troponin I 0.035 ng/mL (0.000-0.034)
[2020-10-04] MEDS: SODIUM CHLORIDE 0.9% IV 1,000 ML 999 ML IV CONT (10:52)
--- NOTE | 2020-10-04 14:52 | ADMGEN ---
This patient, Hieu Silva, was admitted to IMU Room 232-01 at 1438. Patient/family oriented to hospital policies and general routines including ID bracelet, bed and alarms, visiting hours, pain management, procedures, bathroom and other care routines, personal items, smoking policy, room service/diet, and visiting hours. Information on how to activate the Rapid Response Team has been discussed. Patient/Family are encouraged to report perceived risks to care and to ask questions if they do not understand what they are told or what they should do.
[2020-10-04 15:56] LABS: Troponin I 0.021 ng/mL (0.000-0.034)
--- NOTE | 2020-10-04 16:47 | PM.CNCAR ---
Assessment and Plan Additional Plan This is a 80-year-old man with: Persistent atrial flutter which is due to mitral valve regurgitation related to anterior leaflet prolapse. He has significant atrial dilatation and is been persistently in atrial flutter for at least several months. He was planned by his feller seam operator at [place] to have a cardioversion done 2 days ago which did not happen because he could not get there. His medical regimen prior to this consisted of apixaban and metoprolol which I will resume at this time. If he is still in the hospital through the weekend I will attempt DC cardioversion here at [facility] for his convenience. Galindo Tariq MD [facility] History of Present Illness History of Present Illness Consult date/time: 10/04/20 16:47 Reason For Visit: Acute respiratory failure w hypoxia/ A fib w RVR/p Narrative: This is a 80-year-old man who is being seen this evening at the request of the hospitalist to assist with the evaluation and management of atrial flutter. The patient has not been seen by myself in the past but it looks like has been seen by Dr. David of our practice as well as physicians in the Department of Cardiology down at [place]. From what I can gather looking at the chart he has been in a persistent pattern of atrial flutter for quite a long time now and has been anticoagulated with apixaban when Dr. short saw the patient here in consultation at [facility] in May he put also treated the patient with amiodarone. At that time he was transferred downtown to [place] because he had significant oral bleeding. The patient unfortunately was found to have some sort of oral cancer and had that treated with radiation therapy. 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 It looks like he has a history of episodes of atrial fibrillation in the past but has been in a pattern of sustained atrial flutter since this past summer. When he was taking his beta-peyton he was well rate controlled he states that he has not got refills of his metoprolol for approximately 1 week and has been off of the beta-peyton for that reason. His feller seam operator at [place] that last saw him in the 1st day of this month recommended attempting an outpatient cardioversion which was scheduled for 2 days ago. Apparently that was canceled because he was feeling poorly. He came to the emergency room today with a variety of symptoms including some shortness of breath and of course he is now being ruled out for rodriguez virus. I do have quite a bit of difficulty understanding the patient's speech in all the complaints that he had here today. Because of the atrial flutter we have been asked to that once again see him in consultation at this hospital. His echocardiogram here and at [place] have demonstrated normal left ventricular systolic function he does have severe atrial dilatation and mitral regurgitation related to anterior leaflet prolapse as this substrate for his arrhythmias. He does not appear to be particularly symptomatic with his atrial flutter or hemodynamically embarrassed. Had a long discussion with the patient about the management of his arrhythmia. Now that he is hospitalized at [place] I told him I would be happy to attempt a cardioversion here. It being Wednesday evening the soonest we would practically be able to get that done would be on this coming Wednesday if he is still in the hospital. I will reorder his apixaban and metoprolol which are not yet on his orders. Review of Systems Constitutional: Constitutional: Reports weakness Eyes: Eyes: Reports no additional eye complaints ENT: Reports system reviewed and no additional complaints, except as documented Cardiovascular: Cardiovascular: Reports no additional cardiovascular complaints R
[2020-10-04] MEDS: METOPROLOL SUCCINATE EXT REL 50 MG TABCR PO (17:28)
--- NOTE | 2020-10-04 19:00 | PM.IMHP ---
H&P: HPI History of Present Illness Date/Time: 10/04/20 19:00 Chief complaint: Shortness of breath. Narrative: Hieu Silva is a pleasant 80-year-old male with history of atrial fibrillation now with persistent atrial flutter on long-term anticoagulation and oral cancer which has been treated with resection, radiation, and more recently chemotherapy who presented to the emergency department earlier today with complaints of shortness of breath. For the last 1 week or so he has had progressive shortness of breath to the point where he is winded with very little activity. He has also had a cough which is rarely productive of clear colored sputum. Family members encouraged him to come to the hospital yesterday due to progressive weakness however he did decline but acquiesce this morning due to lack of improvement. Chest x-ray done on arrival to the emergency department demonstrated bilateral infiltrates with a differential diagnosis to include pneumonia or pulmonary edema. He is being admitted under the assumption that he has pneumonia, and is currently in isolation pending SARS-CoV-2 by PCR. He has not had exposure to those positive for COVID-19 to his knowledge and he also denies fever, chills, sweats, sinus congestion, otalgia, odynophagia, nausea, vomiting, and diarrhea. With further questioning he occasionally coughs if he tries to take a drink of water, and in fact it sounds as though he sometimes coughs even on his own saliva. Since he was diagnosed with oral cancer he has gotten all his his nutrition via a G-tube but again still drinks a small amount of water. Review of Systems Review of Systems: Narrative: Twelve systems were reviewed with pertinent positives and negatives as per HPI. No fever, chills, or sweats. He denies headache. No sinus congestion, rhinorrhea, otalgia, or odynophagia. More recently the patient's oral cancer was treated with chemotherapy and seemed to regress somewhat however over the last month or so he has noted that the mass has gotten a bit bigger and is more firm. It is to the point where he can no longer wear his oral prosthesis as it will not fit. He has not had chest pain or pleuritic pain. He denies palpitations however has been in persistent atrial flutter for several months which is attributed to mitral valve regurgitation related to anterior leaflet prolapse. He was supposed to undergo cardioversion by his dancing instructor at [facility] sometime this week but could not make that, I believe due to the symptoms he has been having the last 1 week or so. Except as documented, all other systems were reviewed and are negative. [facility] Past Medical History Medical History (Updated 10/04/20 @ 23:06 by Dulce Hinkle PA-C) Anxiety Atrial flutter Patient has been in persistent atrial flutter as of 09/13/2020 secondary to mitral valve regurgitation related to anterior leaflet prolapse. Current use of half-way anticoagulation Dysphagia causing pulmonary aspiration with swallowing Status post PEG tube insertion in December 2019. History of echocardiogram Echocardiogram in May 2014 showed vigorous contractility of the left ventricle with ejection fraction of 70%, mild anterior leaflet mitral valve prolapse with mild mitral regurgitation and mild left atrial enlargement. 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 He had transferred his care to [facility] thereafter however as of May 2020 he was being treated with chemotherapy at [place] due to recurrence. Paroxysmal atrial fibrillation Renal cell carcinoma (~2011) Status post right nephrectomy. 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 Surgical History Surgical History (Updated 10/04/20 @ 22:58 by Dulce Hinkle PA-C) History of nephrectomy (~2011) Patient apparently had a large mass o
[2020-10-04 19:35] LABS: Troponin I 0.015 ng/mL (0.000-0.034)
[2020-10-04] MEDS: APIXABAN 5 MG TABLET PO (20:38)
[2020-10-04 23:21] LABS: SARS-CoV-2 RNA PCR Negative
[2020-10-05] VITALS (18 sets, daily range): BP systolic 90–126; BP diastolic 57–77; PULSE 91–131; RESP 16–18; TEMP 36–36.8; O2SAT 93–99
[2020-10-05 05:31] LABS: Hematocrit 42.5 % (42.0-52.0); Hemoglobin 12.8 g/dL (14.0-18.0); Mean Corpuscular HGB Conc 30.1 g/dl (32-36); Mean Corpuscular Hemoglobin 24.9 pg (26-34); Mean Corpuscular Volume 82.5 fl (80-100); Mean Platelet Volume 9.5 fl (7.4-10.4); Platelet Count Result 233 k/mm3 (150-375); Red Blood Count 5.15 M/mm3 (4.6-6.20); Red Cell Distribution Width 17.9 % (11.5-14.5); White Blood Count 7.4 K/mm3 (4.5-10.0)
[2020-10-05 06:09] LABS: Alanine Aminotransferase 24 U/L (4-50); Alkaline Phosphatase 107 U/L (38-126); Aspartate Amino Transferase 24 U/L (17-59); Bilirubin,Total 0.8 mg/dL (0.2-1.3); Magnesium 2.1 mg/dL (1.6-2.3); Phosphorus 4.3 mg/dL (2.5-4.5)
[2020-10-05 06:30] LABS: Anion Gap 8 mmol/L (8-16); Blood Urea Nitrogen 34 mg/dL (9-20); Calcium 8.8 mg/dL (8.4-10.2); Carbon Dioxide 28 mmol/L (22-30); Chloride 106 mmol/L (98-107); Estimated CRCL calculation 60 ml/min; Estimated Glomerular Filt Rate > 60; Glucose 83 mg/dL (75-110); Potassium 3.7 mmol/L (3.4-5.0); Sodium 142 mmol/L (137-145)
[2020-10-05 08:05] LABS: Anisocytosis 1+ (NORMAL); Band Neutrophils Percent 7 % (0-6); Eosinophils Absolute Manual 0.07 K/mm3 (0.02-0.5); Eosinophils Percent Manual 1 % (0-4); Macrocytosis 1+ (NORMAL); Monocytes Absolute Manual 0.29 K/mm3 (0.1-0.90); Monocytes Percent Manual 4 % (3-9); Neutrophils Absolute Manual 5.62 K/mm3 (1.3-6.7); Neutrophils Percent Manual 69 % (46-73); Ovalocytes 1+ (NORMAL); Platelet Estimate Adequate (Adequate); Total Cells Counted 100
--- NOTE | 2020-10-05 09:32 | PM.IMPN ---
Progress Note: A&P Assessment and Plan (1) Acute respiratory failure with hypoxia: Code(s): J96.01 - Acute respiratory failure with hypoxia Status: Acute (2) Pneumonia: Qualifiers: Laterality: bilateral Lung location: unspecified part of lung Pneumonia type: due to unspecified organism Qualified Code(s): J18.9 - Pneumonia, unspecified organism Code(s): J18.9 - Pneumonia, unspecified organism Status: Acute Assessment and Plan: Continue azithromycin and switch from ceftriaxone to unasyn for possible aspiration SARS-CoV-2 rt-PCR negative 10/05 PM Dexamethasone 6 mg IV x1 dose empirically on 10/05 (3) Elevated troponin: Code(s): R77.8 - Other specified abnormalities of plasma proteins Status: Acute Assessment and Plan: Likely due to pneumonia and atrial flutter No acute coronary syndrome (4) Oral cancer: Onset Date: ~2002 Code(s): C06.9 - Malignant neoplasm of mouth, unspecified Status: Acute (5) Atrial flutter with rapid ventricular response: Code(s): I48.92 - Unspecified atrial flutter Status: Resolved Assessment and Plan: Continue apixaban and metoprolol Cardiology following Possible cardioversion 10/07 (6) Dysphagia causing pulmonary aspiration with swallowing: Code(s): R13.19 - Other dysphagia Status: Acute Assessment and Plan: 10/05 d/w ST and continue treatment Subjective Date/time seen: 10/05/20 09:32 Interval history: 80-year-old male with a history of 1 week increased shortness of breath on exertion and cough. No fever. Prior history of oral cancer with resection and radiation therapy. Does have coughing with drinking liquids. 10/05: Feeling better. Coughs when drinking fluids. SOB with any exertion. Review of Systems Review of Systems: All systems reviewed & are unremarkable except as noted in HPI and below Exam Narrative: Exam Narrative: HEENT: EOMI, PERRL, sclerae nonicteric, pharyngeal mucosa pink with postoperative changes, few teeth in mouth. NECK: No JVD, adenopathy, or thyromegaly CHEST: Coarse BS with bilateral LL crackles HEART: NL S1/S2, regular, no murmur ABDOMEN: BS+, soft, nontender, no mass, no bruits EXTREMITIES: No cyanosis, edema, or clubbing NEUROLOGIC: CN intact and symmetric to inspection, except tongue deviates to right when protruded. Speech dysarthric. MUSCULOSKELETAL: Tone and strength symmetric. PSYCH: Alert. Oriented to person, place, and time. Objective Data Vital Signs Vital Signs: Vital Signs - 24 hr 10/04/20 09:35 10/04/20 10:21 10/04/20 10:55 Temperature Pulse Rate 128 H 134 H 119 H Respiratory Rate 28 H 22 H 22 H Blood Pressure 107/81 94/68 L 101/74 Pulse Oximetry 96 97 99 10/04/20 11:26 10/04/20 12:23 10/04/20 13:53 Temperature Pulse Rate 115 H 102 H 116 H Respiratory Rate 20 20 20 Blood Pressure 99/70 L 91/68 L 100/66 Pulse Oximetry 99 97 97 10/04/20 14:01 10/04/20 16:00 10/04/20 17:28 Temperature 97.6 F Pulse Rate 117 H 137 H 133 H Respiratory Rate 22 H 22 H Blood Pressure 98/80 L 98/80 L Pulse Oximetry 97 95 10/04/20 18:00 10/04/20 20:00 10/04/20 22:00 Temperature 97.2 F L Pulse Rate 126 H 119 H 119 H Respiratory Rate 18 Blood Pressure 103/75 Pulse Oximetry 94 10/05/20 00:00 10/05/20 02:00 10/05/20 04:00 Temperature 98.3 F 98.3 F Pulse Rate 116 H 113 H 115 H Respiratory Rate 16 18 Blood Pressure 96/57 L 126/66 Pulse Oximetry 94 95 10/05/20 06:00 Temperature Pulse Rate 115 H Respiratory Rate Blood Pressure Pulse Oximetry Intake/Output Intake/Output: Intake & Output 10/02/20 10/03/20 10/04/20 10/05/20 23:59 23:59 23:59 23:59 Intake Total 1800 150 Output Total 500 Balance 1800 -350 Meds/Results Medications: Active Medications Generic Name Dose Route Start Last Admin Trade Name Freq PRN Reason Stop Dose Admin Apixaban 5 mg 10/05/20 09:
[2020-10-05] MEDS: DEXAMETHASONE SOD PHOS INJ 4 MG/ML VIAL 6 MG IV PUSH (10:33)
[2020-10-05] MEDS: APIXABAN 5 MG TABLET FEED TUBE ×2 (10:33→20:32)
--- NOTE | 2020-10-05 10:34 | PCSTNOTE ---
Bedside swallow evaluation completed. Please see ST evaluation for details and recommendations.
[2020-10-05] MEDS: METOPROLOL TARTRATE 25 MG TABLET PO (12:03)
--- NOTE | 2020-10-05 12:31 | PM.PNCARD ---
Progress Note: A&P Additional Plan 80-year-old gentleman with: Persistent atrial flutter and no significant hemodynamic embarrassment. Plans are to attempt cardioversion on Wednesday to attempt to restore sinus rhythm. Because of his recent oral surgery/airway concerns I will arrange this to be done with anesthesia. Galindo Tariq MD [facility] Subjective Date/time seen: Date of service: 10/05/20 12:31 Interval history: 80-year-old man with: Persistent atrial flutter this arrhythmia has been present at least for several months. 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 He has the same arrhythmia going on now and is otherwise hemodynamically stable. Plan set in place for attempt cardioversion on Wednesday of this coming week. Exam Const: General: comfortable and no acute distress Other: Pleasant elderly man chronically ill-appearing no apparent distress. Voice is difficult to understand because of recent oral/palate surgery HENMT: Mouth: Yes moist mucous membranes Eyes: Sclera: sclerae normal Pupils: Equal, round and reactive pupils present Neck: Neck: supple and no JVD Thyroid: thyroid normal Resp: Effort & Inspection: normal respiratory effort Auscultation: clear to auscultation bilaterally Cardio: Rate: bradycardic Rhythm: abnormal rhythm GI: GI Palp: Yes Soft to palpation Auscultation: normal bowel sounds Skin: General skin exam: normal color Neuro: Cognition (Neuro): normal cognition Extrem: General: normal to inspection Objective Data Vital Signs Vital Signs: Vital Signs - 24 hr 10/04/20 13:53 10/04/20 14:01 10/04/20 16:00 Temperature 36.4 C Pulse Rate 116 H 117 H 137 H Respiratory Rate 20 22 H 22 H Blood Pressure 100/66 98/80 L 98/80 L Pulse Oximetry 97 97 95 10/04/20 17:28 10/04/20 18:00 10/04/20 20:00 Temperature 36.2 C L Pulse Rate 133 H 126 H 119 H Respiratory Rate 18 Blood Pressure 103/75 Pulse Oximetry 94 10/04/20 22:00 10/05/20 00:00 10/05/20 02:00 Temperature 36.8 C Pulse Rate 119 H 116 H 113 H Respiratory Rate 16 Blood Pressure 96/57 L Pulse Oximetry 94 10/05/20 04:00 10/05/20 06:00 10/05/20 08:00 Temperature 36.8 C Pulse Rate 115 H 115 H 112 H Respiratory Rate 18 16 Blood Pressure 126/66 Pulse Oximetry 95 95 10/05/20 09:55 10/05/20 09:59 10/05/20 12:03 Temperature 36.3 C L Pulse Rate 122 H 112 H Respiratory Rate 16 Blood Pressure 109/63 Pulse Oximetry 95 95 Intake/Output Intake/Output: Intake & Output 10/02/20 10/03/20 10/04/20 10/05/20 23:59 23:59 23:59 23:59 Intake Total 1800 150 Output Total 500 Balance 1800 -350 Meds/Results Medications: Active Medications Generic Name Dose Route Start Last Admin Trade Name Freq PRN Reason Stop Dose Admin Apixaban 5 mg 10/05/20 09:00 10/05/20 10:33 Apixaban 5 Mg Tablet FEED TUBE 5 mg Q12HR CLAIRE Administration Azithromycin 500 mg in 250 mls @ 250 mls/hr 10/05/20 11:00 Zithromax IVPB Q24H CLAIRE Ampicillin Sodium/Sulbactam Sodium 3 gm in 100 mls @ 200 mls/hr 10/05/20 12:30 Unasyn 3 Gm/Ns 100 Ml IVPB Q6H CLAIRE Metoprolol Tartrate 25 mg 10/05/20 11:35 10/05/20 12:03 Metoprolol Tartrate 25 Mg Tablet PO 25 mg Q12HR CLAIRE Administration Radiology Results: ITS Impressions Chest X-Ray 10/04/20 09:53 IMPRESSION: Bilateral infiltrates, right greater than left COPD; differential diagnosis includes pneumonia, less likely pulmonary edema Cardiomegaly, pulmonary vascular congestion, suggesting possible congestive heart failure Labs Labs: Laboratory Results - last 24 hr 10/04/20 10/04/20 10/04/20 11:38 15:24 19:03 WBC RBC Hgb Hct MCV MCH MCHC RDW Plt Count MPV Immature Gran % (Auto) Neut % (Auto) Lymph % (Auto) [place] % (Auto) Eos % (Auto) Baso % (A
[2020-10-05] MEDS: AMPICILLIN SULB 3 GM/NS 100 ML 3 GM/100 ML VIAL IVPB ×2 (14:02→17:45)
[2020-10-05] MEDS: METOPROLOL TARTRATE 25 MG TABLET FEED TUBE (20:32)
[2020-10-06] VITALS (18 sets, daily range): BP systolic 91–117; BP diastolic 62–87; PULSE 88–137; RESP 16–22; TEMP 36–36.6; O2SAT 91–98
[2020-10-06] MEDS: AMPICILLIN SULB 3 GM/NS 100 ML 3 GM/100 ML VIAL IVPB ×5 (00:55→23:06)
[2020-10-06 05:38] LABS: Hematocrit 44.7 % (42.0-52.0); Mean Corpuscular HGB Conc 31.3 g/dl (32-36); Mean Corpuscular Hemoglobin 24.8 pg (26-34); Mean Corpuscular Volume 79.1 fl (80-100); Mean Platelet Volume 9.9 fl (7.4-10.4); Platelet Count Result 319 k/mm3 (150-375); Red Blood Count 5.65 M/mm3 (4.6-6.20); Red Cell Distribution Width 18.1 % (11.5-14.5); White Blood Count 8.3 K/mm3 (4.5-10.0)
[2020-10-06 06:00] LABS: D Dimer 1.33 ug/mL (<0.48)
[2020-10-06 06:17] LABS: Alanine Aminotransferase 21 U/L (4-50); Albumin Level 2.8 g/dL (3.5-5.1); Alkaline Phosphatase 99 U/L (38-126); Anion Gap 6 mmol/L (8-16); Aspartate Amino Transferase 23 U/L (17-59); Bilirubin,Total 0.6 mg/dL (0.2-1.3); Blood Urea Nitrogen 41 mg/dL (9-20); CRP 13.2 mg/dL (<1.0); Calcium 8.6 mg/dL (8.4-10.2); Carbon Dioxide 27 mmol/L (22-30); Chloride 106 mmol/L (98-107); Estimated CRCL calculation 53 ml/min; Estimated Glomerular Filt Rate > 60; Glucose 127 mg/dL (75-110); Sodium 139 mmol/L (137-145)
--- NOTE | 2020-10-06 07:31 | PM.IMPN ---
Progress Note: A&P Assessment and Plan (1) Acute respiratory failure with hypoxia: Code(s): J96.01 - Acute respiratory failure with hypoxia Status: Acute (2) Pneumonia: Qualifiers: Laterality: bilateral Lung location: unspecified part of lung Pneumonia type: due to unspecified organism Qualified Code(s): J18.9 - Pneumonia, unspecified organism Code(s): J18.9 - Pneumonia, unspecified organism Status: Acute Assessment and Plan: Continue azithromycin and switched from ceftriaxone to unasyn 10/05 for possible aspiration SARS-CoV-2 rt-PCR negative 10/05 PM Dexamethasone 6 mg IV x1 dose empirically on 10/05 NPO due to aspiration Jevity 1.2 240 ml per FT q 4h (3) Elevated troponin: Code(s): R77.8 - Other specified abnormalities of plasma proteins Status: Acute Assessment and Plan: Likely due to pneumonia and atrial flutter No acute coronary syndrome (4) Oral cancer: Onset Date: ~2002 Code(s): C06.9 - Malignant neoplasm of mouth, unspecified Status: Acute Assessment and Plan: In remission, but surgery and RT have left him with progressively worsening dysphagia and dysarthria ST working with him (5) Atrial flutter with rapid ventricular response: Code(s): I48.92 - Unspecified atrial flutter Status: Resolved Assessment and Plan: Continue apixaban and metoprolol Cardiology following Possible cardioversion 10/07 (6) Dysphagia causing pulmonary aspiration with swallowing: Code(s): R13.19 - Other dysphagia Status: Acute Assessment and Plan: 10/05 ST continues treatment Subjective Date/time seen: 10/06/20 07:31 Interval history: 80-year-old male with a history of 1 week increased shortness of breath on exertion and cough. No fever. Prior history of oral cancer with resection and radiation therapy. Does have coughing with drinking liquids. 10/06: NPO. Less sob. No chest pain. Less cough. Review of Systems Review of Systems: All systems reviewed & are unremarkable except as noted in HPI and below Exam Narrative: Exam Narrative: HEENT: EOMI, PERRL, sclerae nonicteric, pharyngeal mucosa pink with postoperative changes, few teeth in mouth. NECK: No JVD CHEST: Coarse BS with bilateral LL crackles HEART: NL S1/S2, regular, no murmur ABDOMEN: BS+, soft, nontender, no mass, no bruits EXTREMITIES: No cyanosis, edema, or clubbing NEUROLOGIC: CN intact and symmetric to inspection, except tongue deviates to right when protruded. Speech dysarthric. MUSCULOSKELETAL: Tone and strength symmetric. PSYCH: Alert. Oriented to person, place, and time. Objective Data Vital Signs Vital Signs: Vital Signs - 24 hr 10/05/20 08:00 10/05/20 09:55 10/05/20 09:59 Temperature 97.3 F L Pulse Rate 119 H 122 H Respiratory Rate 16 16 Blood Pressure 109/63 Pulse Oximetry 95 95 95 10/05/20 10:00 10/05/20 12:00 10/05/20 12:03 Temperature 97.1 F L Pulse Rate 122 H 110 H 112 H Respiratory Rate 16 Blood Pressure 101/69 Pulse Oximetry 96 10/05/20 14:00 10/05/20 16:00 10/05/20 18:00 Temperature Pulse Rate 91 115 H 131 H Respiratory Rate Blood Pressure Pulse Oximetry 96 10/05/20 18:10 10/05/20 20:00 10/05/20 20:32 Temperature 96.8 F L 96.8 F L Pulse Rate 119 H 122 H 115 H Respiratory Rate 16 16 Blood Pressure 90/69 L 93/68 L Pulse Oximetry 93 93 10/05/20 22:00 10/05/20 23:57 10/06/20 00:00 Temperature 96.8 F L Pulse Rate 115 H 117 H 117 H Respiratory Rate 16 16 Blood Pressure 110/77 Pulse Oximetry 94 94 10/06/20 02:00 10/06/20 04:00 10/06/20 06:00 Temperature 96.8 F L Pulse Rate 113 H 109 H 115 H Respiratory Rate 18 Blood Pressure 103/64 Pulse Oximetry 91 Intake/Output Intake/Output: Intake & Output 10/03/20 10/04/20 10/05/20 10/06/20 23:59 23:59 23:59 23:59 Intake Total 1800 650 400 Output Total 775 300 Balance 1800
[2020-10-06] MEDS: APIXABAN 5 MG TABLET FEED TUBE ×2 (08:42→20:44)
[2020-10-06] MEDS: METOPROLOL TARTRATE 25 MG TABLET FEED TUBE ×2 (08:43→20:43)
--- NOTE | 2020-10-06 10:01 | PM.PNCARD ---
Progress Note: A&P Additional Plan No changes in regimen today. Will hold patient NPO after midnight in anticipation for cardioversion attempt tomorrow. Galindo Tariq MD [facility] Subjective Date/time seen: Date of service: 10/06/20 10:01 Interval history: Follow-up visit in this 80-year-old man with mitral valve prolapse, MR and persistent atrial flutter. 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 Patient is comfortable this morning has no significant complaints. Discussed plans for attempting DC cardioversion tomorrow. Exam Const: General: comfortable and no acute distress HENMT: Mouth: Yes moist mucous membranes Eyes: Sclera: sclerae normal Pupils: Equal, round and reactive pupils present Neck: Neck: supple and no JVD Resp: Effort & Inspection: normal respiratory effort Auscultation: clear to auscultation bilaterally and diminished lung sounds Cardio: Rhythm: abnormal rhythm GI: GI Palp: Yes Soft to palpation Auscultation: normal bowel sounds Skin: General skin exam: normal color Neuro: Cognition (Neuro): normal cognition Extrem: General: normal to inspection Objective Data Vital Signs Vital Signs: Vital Signs - 24 hr 10/05/20 12:00 10/05/20 12:03 10/05/20 14:00 Temperature 36.2 C L Pulse Rate 110 H 112 H 91 Respiratory Rate 16 Blood Pressure 101/69 Pulse Oximetry 96 10/05/20 16:00 10/05/20 18:00 10/05/20 18:10 Temperature 36.0 C L Pulse Rate 115 H 131 H 119 H Respiratory Rate 16 Blood Pressure 90/69 L Pulse Oximetry 96 93 10/05/20 20:00 10/05/20 20:32 10/05/20 22:00 Temperature 36.0 C L Pulse Rate 122 H 115 H 115 H Respiratory Rate 16 Blood Pressure 93/68 L Pulse Oximetry 93 10/05/20 23:57 10/06/20 00:00 10/06/20 02:00 Temperature 36.0 C L Pulse Rate 117 H 117 H 113 H Respiratory Rate 16 16 Blood Pressure 110/77 Pulse Oximetry 94 94 10/06/20 04:00 10/06/20 06:00 10/06/20 08:43 Temperature 36.0 C L Pulse Rate 109 H 115 H 129 H Respiratory Rate 18 Blood Pressure 103/64 Pulse Oximetry 91 Intake/Output Intake/Output: Intake & Output 10/03/20 10/04/20 10/05/20 10/06/20 23:59 23:59 23:59 23:59 Intake Total 1800 650 400 Output Total 775 300 Balance 1800 -125 100 Meds/Results Medications: Active Medications Generic Name Dose Route Start Last Admin Trade Name Vishal PRN Reason Stop Dose Admin Apixaban 5 mg 10/05/20 09:00 10/06/20 08:42 Apixaban 5 Mg Tablet FEED TUBE 5 mg Q12HR CLAIRE Administration Azithromycin 500 mg in 250 mls @ 250 mls/hr 10/05/20 11:00 10/05/20 13:31 Zithromax IVPB Infused Q24H CLAIRE Infusion Ampicillin Sodium/Sulbactam Sodium 3 gm in 100 mls @ 200 mls/hr 10/05/20 12:30 10/06/20 05:50 Unasyn 3 Gm/Ns 100 Ml IVPB Infused Q6HR CLAIRE Infusion Metoprolol Tartrate 25 mg 10/05/20 21:00 10/06/20 08:43 Metoprolol Tartrate 25 Mg Tablet FEED TUBE 25 mg Q12HR CLAIRE Administration Radiology Results: ITS Impressions Chest X-Ray 10/04/20 09:53 IMPRESSION: Bilateral infiltrates, right greater than left COPD; differential diagnosis includes pneumonia, less likely pulmonary edema Cardiomegaly, pulmonary vascular congestion, suggesting possible congestive heart failure Labs Labs: Laboratory Results - last 24 hr 10/06/20 10/06/20 10/06/20 05:20 05:20 05:20 WBC 8.3 RBC 5.65 Hgb 14.0 Hct 44.7 MCV 79.1 L MCH 24.8 L MCHC 31.3 L RDW 18.1 H Plt Count 319 MPV 9.9 D-Dimer 1.33 H Sodium 139 Potassium 4.0 Chloride 106 Carbon Dioxide 27 Anion Gap 6 L BUN 41 H Creatinine 1.00 Estim Creat Clear Calc 53 Estimated GFR > 60 Glucose 127 H Calcium 8.6 Ferritin Total Bilirubin 0.6 AST 23 ALT 21 Alkaline Phosphatase 99 C-Reactive Protein 13.2 H Total Protein 6.0 L Albumin 2.8 L 1
--- NOTE | 2020-10-06 13:22 | WPDANESEPP ---
Anes - Eval Pre Procedure Procedure: cardioversion Date/Time: 10/06/20 13:22 Pre Op Diagnosis: Shortness of breath. Patient Data Age: 80 Gender: M Height: 1.83 m Weight: 70.3 kg Last Vital Signs Temp 36.4 C 10/06/20 13:05 Pulse 122 H 10/06/20 13:05 Resp 20 10/06/20 13:05 BP 91/70 L 10/06/20 13:05 Pulse Ox 98 10/06/20 13:05 Allergies Allergy/AdvReac Type Severity Reaction Status Date / Time No Known Allergies Allergy Mild Verified 10/04/20 09:30 Home Medications Medication Instructions Recorded Confirmed Type Eliquis 5 mg FEEDING TUBE DAILY 09/06/19 10/04/20 History metoprolol succinate 50 mg PO DAILY 10/04/20 10/04/20 History Laboratory Tests 10/06/20 10/06/20 10/06/20 05:20 05:20 05:20 WBC 8.3 K/mm3 K/mm3 (4.5-10.0) RBC 5.65 M/mm3 M/mm3 (4.6-6.20) Hgb 14.0 g/dL g/dL (14.0-18.0) Hct 44.7 % % (42.0-52.0) MCV 79.1 fl L fl (80-100) MCH 24.8 pg L pg (26-34) MCHC 31.3 g/dl L g/dl (32-36) RDW 18.1 % H % (11.5-14.5) Plt Count 319 k/mm3 k/mm3 (150-375) MPV 9.9 fl fl (7.4-10.4) D-Dimer 1.33 ug/mL H ug/mL (<0.48) Sodium 139 mmol/L mmol/L (137-145) Potassium 4.0 mmol/L mmol/L (3.4-5.0) Chloride 106 mmol/L mmol/L (98-107) Carbon Dioxide 27 mmol/L mmol/L (22-30) Anion Gap 6 mmol/L L mmol/L (8-16) BUN 41 mg/dL H mg/dL (9-20) Creatinine 1.00 mg/dL mg/dL (0.7-1.3) Estim Creat Clear Calc 53 ml/min ml/min Estimated GFR > 60 (59 - ) Glucose 127 mg/dL H mg/dL (75-110) Calcium 8.6 mg/dL mg/dL (8.4-10.2) Ferritin Total Bilirubin 0.6 mg/dL mg/dL (0.2-1.3) AST 23 U/L U/L (17-59) ALT 21 U/L U/L (4-50) Alkaline Phosphatase 99 U/L U/L (38-126) C-Reactive Protein 13.2 mg/dL H mg/dL (<1.0) Total Protein 6.0 g/dL L g/dL (6.3-8.2) Albumin 2.8 g/dL L g/dL (3.5-5.1) 10/06/20 05:20 WBC RBC Hgb Hct MCV MCH MCHC RDW Plt Count MPV D-Dimer Sodium Potassium Chloride Carbon Dioxide Anion Gap BUN Creatinine Estim Creat Clear Calc Estimated GFR Glucose Calcium Ferritin 188.00 ng/mL ng/mL (11.1-264) Total Bilirubin AST ALT Alkaline Phosphatase C-Reactive Protein Total Protein Albumin Patient hx anesthesia problems: none Family hx anesthesia problems: none PMFSH Past Medical History Medical History (Updated 10/05/20 @ 12:24 by Nando Browne MD) Anxiety Atrial flutter Patient has been in persistent atrial flutter as of 09/13/2020 secondary to mitral valve regurgitation related to anterior leaflet prolapse. 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 History of echocardiogram Echocardiogram in May 2014 showed vigorous contractility of the left ventricle with ejection fraction of 70%, mild anterior leaflet mitral valve prolapse with mild mitral regurgitation and mild left atrial enlargement. 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 He had transferred his care to [facility] thereafter however as of May 2020 he was being treated with chemotherapy at [place] due to recurrence. Paroxysmal atrial fibrillation Renal cell carcinoma (~2011) Status post right nephrectomy. 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 Surgical History Surgical History (Updated 10/04/20 @ 22:58 by Alfred Wahl
[2020-10-07] VITALS (18 sets, daily range): BP systolic 88–138; BP diastolic 64–87; PULSE 60–135; RESP 16–22; TEMP 36–36.7; O2SAT 93–100; BMI 21.0
[2020-10-07 04:49] LABS: Hemoglobin 13.1 g/dL (14.0-18.0); Mean Corpuscular HGB Conc 31.2 g/dl (32-36); Mean Corpuscular Hemoglobin 25.1 pg (26-34); Mean Corpuscular Volume 80.5 fl (80-100); Mean Platelet Volume 9.5 fl (7.4-10.4); Platelet Count Result 335 k/mm3 (150-375); Red Blood Count 5.22 M/mm3 (4.6-6.20); Red Cell Distribution Width 17.6 % (11.5-14.5)
[2020-10-07 05:06] LABS: Anion Gap 3 mmol/L (8-16); Blood Urea Nitrogen 50 mg/dL (9-20); Calcium 8.3 mg/dL (8.4-10.2); Carbon Dioxide 31 mmol/L (22-30); Chloride 105 mmol/L (98-107); Estimated CRCL calculation 53 ml/min; Estimated Glomerular Filt Rate > 60; Glucose 136 mg/dL (75-110); Potassium 3.7 mmol/L (3.4-5.0); Sodium 139 mmol/L (137-145)
[2020-10-07] MEDS: AMPICILLIN SULB 3 GM/NS 100 ML 3 GM/100 ML VIAL IVPB ×4 (05:37→23:22)
[2020-10-07] MEDS: APIXABAN 5 MG TABLET FEED TUBE ×2 (09:12→20:51)
[2020-10-07] MEDS: METOPROLOL TARTRATE 25 MG TABLET FEED TUBE ×2 (09:13→20:51)
--- NOTE | 2020-10-07 09:42 | PCDIET ---
MD consult received. Recommend 300mL Jevity 1.2 bolus every 4 hours with 50mL water flush after each feeding. See Nutrition Assessment, Comprehensive for additional details.
--- NOTE | 2020-10-07 13:15 | WPDANESEPPF ---
Anes - Initial Pre Proc Eval Procedure: Operation Date: 10/07/20 13:30 Proposed Procedures p Electrical Cardioversion - Galindo Tariq MD Date/Time: 10/07/20 13:15 Surgeon: Saturnino Devi MD Pre Op Diagnosis: Shortness of breath. Patient Data Age: 80 Gender: M Height: 1.83 m Weight: 70.4 kg Last Vital Signs Temp 36.1 C L 10/07/20 08:00 Pulse 115 H 10/07/20 12:00 Resp 18 10/07/20 08:00 BP 97/64 L 10/07/20 08:00 Pulse Ox 95 10/07/20 08:00 Allergies Allergy/AdvReac Type Severity Reaction Status Date / Time No Known Allergies Allergy Mild Verified 10/04/20 09:30 Home Medications Medication Instructions Recorded Confirmed Type Eliquis 5 mg FEEDING TUBE DAILY 09/06/19 10/04/20 History metoprolol succinate 50 mg PO DAILY 10/04/20 10/04/20 History Laboratory Tests 10/07/20 10/07/20 04:38 04:38 WBC 10.0 K/mm3 K/mm3 (4.5-10.0) RBC 5.22 M/mm3 M/mm3 (4.6-6.20) Hgb 13.1 g/dL L g/dL (14.0-18.0) Hct 42.0 % % (42.0-52.0) MCV 80.5 fl fl (80-100) MCH 25.1 pg L pg (26-34) MCHC 31.2 g/dl L g/dl (32-36) RDW 17.6 % H % (11.5-14.5) Plt Count 335 k/mm3 k/mm3 (150-375) MPV 9.5 fl fl (7.4-10.4) Sodium 139 mmol/L mmol/L (137-145) Potassium 3.7 mmol/L mmol/L (3.4-5.0) Chloride 105 mmol/L mmol/L (98-107) Carbon Dioxide 31 mmol/L H mmol/L (22-30) Anion Gap 3 mmol/L L mmol/L (8-16) BUN 50 mg/dL H mg/dL (9-20) Creatinine 1.00 mg/dL mg/dL (0.7-1.3) Estim Creat Clear Calc 53 ml/min ml/min Estimated GFR > 60 (59 - ) Glucose 136 mg/dL H mg/dL (75-110) Calcium 8.3 mg/dL L mg/dL (8.4-10.2) Patient hx anesthesia problems: none Family hx anesthesia problems: none [facility] Past Medical History Medical History (Updated 10/05/20 @ 12:24 by Nando Browne MD) Anxiety Atrial flutter Patient has been in persistent atrial flutter as of 09/13/2020 secondary to mitral valve regurgitation related to anterior leaflet prolapse. Current use of correction anticoagulation Dysphagia causing pulmonary aspiration with swallowing Status post PEG tube insertion in December 2019. History of echocardiogram Echocardiogram in May 2014 showed vigorous contractility of the left ventricle with ejection fraction of 70%, mild anterior leaflet mitral valve prolapse with mild mitral regurgitation and mild left atrial enlargement. 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 He had transferred his care to [facility] thereafter however as of May 2020 he was being treated with chemotherapy at [place] due to recurrence. Paroxysmal atrial fibrillation Renal cell carcinoma (~2011) Status post right nephrectomy. 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 Surgical History Surgical History (Updated 10/04/20 @ 22:58 by Dulce Hinkle PA-C) History of nephrectomy (~2011) Patient apparently had a large mass on his right kidney, reportedly renal cell carcinoma. History of oral surgery (~2002) Resection of left upper jaw malignancy. History of pneumonectomy (~2017) Wedge resection of squamous cell carcinoma of the right lung. Status post left inguinal herniorrhaphy Family History Family History Father Acute myocardial infarction Diabetes mellitus Social History Social History (Updated 10/04/20 @ 23:00 by Dulce Hinkle PA-C) Social History: The patient lives in his own home in [place]. He is and has 3 children. He has a cat that lives at home with him. 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 He smoked up to a pack of cigarettes per day and
--- NOTE | 2020-10-07 13:42 | WPDANESEFPP ---
Anes - Eval Final PreProcedure Day of Procedure 10/07/20 13:42 Patient weight: normal Heart: irregular rhythm Lungs: clear to auscultation Airway: Mallampati scale class III, special considerations poor opening and poor dentition and other (s/p partial maxilla excision, radiation) Neurological: alert and oriented Last oral intake: >/= 8 hours ASA classification: IV Emergent: no Anesthetic plan: proceed Anesthesia type and monitoring: general GIVS and standard monitoring Informed Consent: The patient's anesthetic plan and its attendant risks and benefits were discussed with the patient/family/POA. Questions were solicited and answers provided to the satisfaction of the patient/family/POA.
--- NOTE | 2020-10-07 13:51 | ECG_ITS ---
Measurements Intervals [place] Rate: 61 P: -33 FL: 167 QRS: 51 QRSD: 116 T: 19 QT: 448 QTc: 453 Interpretive Statements SINUS RHYTHM INCOMPLETE RIGHT BUNDLE BRANCH BLOCK DELAYED PRECORDIAL R/S TRANSITION BORDERLINE ECG Electronically Signed On 10-07-2020 14:10:56 AUDIT MGR by Cedric Vasquez D.O.
--- NOTE | 2020-10-07 14:00 | P.PCNCC_ITS ---
Cardiac Cath Procedure Note Date of procedure:: 10/07/20 Performing physician:: Galindo Tariq MD Indication:: Persistent atrial flutter Brief clinical history:: this is a 80-year-old man with a history of atrial flutter for at least several months. He has been treated with rate control and anticoagulation an attempt at restoring sinus rhythm was recommended by his urban anthropologist at another institution. He was now hospitalized at [place] and we will attempt that procedure today. He is being treated with metoprolol and apixaban. A flutter is felt to be on the basis of mitral valve prolapse and MR. Procedure Procedure performed:: DC cardioversion Sedation/Medication given:: patient sedated per the Anesthesia Service Estimated blood loss:: no blood loss Procedure note:: patient was sedated according to the anesthesia service please see their separately dictated note for those details. He was in the postanesthesia care unit with defibrillator patches in the AP position. Once he was sedated he was counter shocked with 200 joules in a synchronized fashion which restored sinus rhythm. Findings:: Cardioversion as above Conclusion:: successful uncomplicated DC cardioversion terminating atrial flutter and restoring normal sinus rhythm using 200 joules in a synchronized fashion x1 shock Galindo Tariq MD [facility]
--- NOTE | 2020-10-07 14:18 | SUR.PHASEII ---
1425 pt recovered in PACU 7 post cardioversion, vital signs stable, pt with no c/o pain, report give to Katiana HART, transported via bed back IMU [id number].
--- NOTE | 2020-10-07 14:25 | PM.PNCARD ---
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 S/P DC cardioversion this PM restoring NSR Exam Const: General: comfortable and no acute distress Other: Pleasant elderly man chronically ill-appearing no apparent distress. Voice is difficult to understand because of recent oral/palate surgery HENMT: Mouth: Yes moist mucous membranes and Yes dry mucous membranes Eyes: Sclera: sclerae normal Pupils: Equal, round and reactive pupils present Neck: Neck: supple and no JVD Thyroid: thyroid normal Resp: Effort & Inspection: normal respiratory effort Auscultation: clear to auscultation bilaterally and diminished lung sounds Other: Breath sounds are somewhat diminished bilaterally but relatively clear Cardio: Rate: bradycardic Rhythm: abnormal rhythm GI: Auscultation: normal bowel sounds Skin: General skin exam: normal color Neuro: Cranial nerves: Yes Equal, round and reactive pupils present Cognition (Neuro): normal cognition Other: Again speech very difficult for me to understand Extrem: General: normal to inspection Objective Data Vital Signs Vital Signs: Vital Signs - 24 hr 10/06/20 16:00 10/06/20 18:00 10/06/20 19:50 Temperature 36.4 C L 36.4 C Pulse Rate 135 H 123 H 137 H Respiratory Rate 18 18 Blood Pressure 112/64 109/66 Pulse Oximetry 95 98 10/06/20 20:00 10/06/20 20:43 10/06/20 22:00 Temperature Pulse Rate 120 H 120 H 118 H Respiratory Rate 18 Blood Pressure Pulse Oximetry 98 10/06/20 23:26 10/07/20 00:00 10/07/20 02:00 Temperature 36.6 C Pulse Rate 88 112 H 112 H Respiratory Rate 22 H 22 H Blood Pressure 104/62 Pulse Oximetry 93 93 10/07/20 04:00 10/07/20 06:00 10/07/20 08:00 Temperature 36.7 C 36.1 C L Pulse Rate 104 H 104 H 126 H Respiratory Rate 20 18 Blood Pressure 105/80 97/64 L Pulse Oximetry 97 95 10/07/20 09:13 10/07/20 10:00 10/07/20 12:00 Temperature Pulse Rate 135 H 124 H 115 H Respiratory Rate Blood Pressure Pulse Oximetry 10/07/20 14:00 10/07/20 14:10 10/07/20 14:15 Temperature 36.1 C L Pulse Rate 60 65 64 Respiratory Rate 17 20 21 H Blood Pressure 94/68 L 88/69 L 92/71 L Pulse Oximetry 100 99 95 Intake/Output Intake/Output: Intake & Output 10/04/20 10/05/20 10/06/20 10/07/20 23:59 23:59 23:59 23:59 Intake Total 1649 183 6612 550 Output Total 775 425 400 Balance 1800 -125 885 150 Meds/Results Medications: Active Medications Generic Name Dose Route Start Last Admin Trade Name Freq PRN Reason Stop Dose Admin Apixaban 5 mg 10/05/20 09:00 10/07/20 09:12 Apixaban 5 Mg Tablet FEED TUBE 5 mg Q12HR CLAIRE Administration Azithromycin 500 mg in 250 mls @ 250 mls/hr 10/05/20 11:00 10/07/20 12:56 Zithromax IVPB Infused Q24H CLAIRE Infusion Ampicillin Sodium/Sulbactam Sodium 3 gm in 100 mls @ 200 mls/hr 10/05/20 12:30 10/07/20 13:27 Unasyn 3 Gm/Ns 100 Ml IVPB Infused Q6HR CLAIRE Infusion Metoprolol Tartrate 25 mg 10/05/20 21:00 10/07/20 09:13 Metoprolol Tartrate 25 Mg Tablet FEED TUBE 25 mg Q12HR CLAIRE Administration Radiology Results: ITS Impressions Chest X-Ray 10/04/20 09:53 IMPRESSION: Bilateral infiltrates, right greater than left COPD; differential diagnosis includes pneumonia, less likely pulmonary edema Cardiomegaly, pulmonary vascular congestion, suggesting possible congestive heart failure Labs Labs: Laboratory Results - last 24 hr 10/07/20 10/07/20 04:38 04:38 WBC 10.0 RBC 5.22 Hgb
--- NOTE | 2020-10-07 14:34 | PM.IMPN ---
Progress Note: A&P Assessment and Plan (1) Acute respiratory failure with hypoxia: Code(s): J96.01 - Acute respiratory failure with hypoxia Status: Acute Assessment and Plan: Patient was on 4L O2 on admission. [place] related to PNA. He has been weaned to room air Resolved (2) Pneumonia: Qualifiers: Laterality: bilateral Lung location: unspecified part of lung Pneumonia type: due to unspecified organism Qualified Code(s): J18.9 - Pneumonia, unspecified organism Code(s): J18.9 - Pneumonia, unspecified organism Status: Acute Assessment and Plan: CXR showing bilateral infiltrates, right greater than left. WBC 11K but no fevers here. Patient started on Rocephin and Azithromycin but changed to Unasyn and Azithro 10/05 to cover for aspiration. Dexamethasone 6 mg IV x1 empirically but SARS-CoV-2 rt-PCR negative 10/05. BCx NGTD. BUN 50 probably from the steroids Continue azithromycin and Unasyn NPO due to aspiration Patient being followed by Speech Therapy Continue Jevity 1.2 240 ml per FT q 4h (3) Atrial flutter with rapid ventricular response: Code(s): I48.92 - Unspecified atrial flutter Status: Resolved Assessment and Plan: Patient has a history of AFlutter. Manjinder was back in AFlutter on admisison. He was successfully cardioverted today back to [facility]. Continue apixaban and metoprolol Cardiology following (4) Elevated troponin: Code(s): R77.8 - Other specified abnormalities of plasma proteins Status: Acute Assessment and Plan: Elevated Trop to 0.035 not felt to be clinically significant. No acute coronary syndrome Due to pneumonia and atrial flutter (5) Oral cancer: Onset Date: ~2002 Code(s): C06.9 - Malignant neoplasm of mouth, unspecified Status: Acute Assessment and Plan: Patient with oral cancer that is in remission. Surgery and RT have left him with progressively worsening dysphagia and dysarthria ST working with him (6) Dysphagia causing pulmonary aspiration with swallowing: Code(s): R13.19 - Other dysphagia Status: Acute Assessment and Plan: As above (7) DVT prophylaxis: Code(s): Z29.9 - Encounter for prophylactic measures, unspecified Status: Acute Assessment and Plan: Jeanne Subjective Date/time seen: 10/07/20 14:34 Interval history: Date of service 10/07 80yo male with mitral valve prolapse, MR and persistent atrial flutter. 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 S/P cardioversion today with restoring NSR. He feels better today. He denies cough or SB. No CP or palpitations. He states he takes ice chips by mouth by otherwise all nutrition by GTube. he has dry mouth today. RN states pateint waits for ice to melt and drinks the water which causes him to cough. Exam Narrative: Exam Narrative: AF 96.9 92/71 64 21 95% Gen - NARD HEENT - dry MM. erosion to the hard palate. exudative drainage oropharynx Chest - coarse BS bilatrally CV - RRR S1/S2; Tele showing NSR Abd - soft, NT, +BS, GTube dressing clean and dry Ext - no pedal edema Neuro - dysarthric speech; alert and appropriate Skin - warm and dry Objective Data Vital Signs Vital Signs: Vital Signs - 24 hr 10/06/20 16:00 10/06/20 18:00 10/06/20 19:50 Temperature 97.5 F L 97.6 F Pulse Rate 135 H 123 H 137 H Respiratory Rate 18 18 Blood Pressure 112/64 109/66 Pulse Oximetry 95 98 10/06/20 20:00 10/06/20 20:43 10/06/20 22:00 Temperature Pulse Rate 120 H 120 H 118 H Respiratory Rate 18 Blood Pressure Pulse Oximetry 98 10/06/20 23:26 10/07/20 00:00 10/07/20 02:00 Temperature 97.8 F Pulse Rate 88 112 H 112 H Respiratory Rate 22 H 22 H Blood Pressure 104/62 Pulse Oximetry 93 93 10/07/20 04:00 10/07/20 06:00 10/07/20 08:00 T
[2020-10-08] VITALS (9 sets, daily range): BP systolic 135–146; BP diastolic 75–94; PULSE 64–74; RESP 18–20; TEMP 35.8–36.3; O2SAT 96–99
[2020-10-08] MEDS: AMPICILLIN SULB 3 GM/NS 100 ML 3 GM/100 ML VIAL IVPB (05:27)
[2020-10-08] MEDS: METOPROLOL TARTRATE 25 MG TABLET FEED TUBE (09:25)
[2020-10-08] MEDS: APIXABAN 5 MG TABLET FEED TUBE (09:25)
--- NOTE | 2020-10-08 10:42 | PM.PNCARD ---
Progress Note: A&P Assessment and Plan (1) Atrial flutter with rapid ventricular response: Code(s): I48.92 - Unspecified atrial flutter Status: Resolved Assessment and Plan: Status post successful cardioversion 10/07/2020. MVP with anterior leaflet prolapse. Continue anticoagulation with apixaban. Continue Metoprolol succinate. Additional Plan OK to discharge from cardiac standpoint. He is to follow up with his associate publisher at [place]. Plan discussed with Dr. David [id number] 10/08/2020 Subjective Date/time seen: 10/08/20 10:42 Interval history: Follow-up for: Atrial flutter status post cardioversion 10/07/2020, mitral valve prolapse, right atrial enlargement, long-term use of anticoagulation with apixaban Date of service: 10/08/2020 Subjective: Denied chest discomfort, shortness of breath, lightheadedness or excessive cough. Review of Systems Constitutional: Constitutional: Reports weakness Eyes: Eyes: Denies blurry vision Cardiovascular: Cardiovascular: Denies dyspnea Respiratory: Respiratory: Reports cough and Denies dyspnea Gastrointestinal: Gastrointestinal: Reports dysphagia Musculoskeletal: Musculoskeletal: Denies back pain and Denies myalgias Neurologic: Reports weakness Psychiatric: Psychiatric: Denies anxiety and Denies depression Endocrine: Endocrine: Denies cold intolerance, Denies excessive sweating and Denies heat intolerance Hematologic/Lymphatic: Hematologic/Lymphatic: Reports easy bruising Allergic/Immunologic: Allergic/Immunologic: Denies GI upset with certain foods Exam Const: General: comfortable and no acute distress HENMT: Mouth: Yes moist mucous membranes Eyes: Sclera: sclerae normal Pupils: Equal, round and reactive pupils present Neck: Neck: supple and no JVD Resp: Effort & Inspection: normal respiratory effort Auscultation: rhonchi right lower and diminished lung sounds on the left in the lower lung rogers Cardio: Jugular venous distension: no JVD Rate: regular rate Rhythm: regular rhythm Peripheral pulses: Peripheral pulses 2+ throughout GI: GI Palp: Yes Soft to palpation Auscultation: normal bowel sounds Skin: General skin exam: normal color Lesions: no lesions Neuro: Cranial nerves: Yes Equal, round and reactive pupils present Cognition (Neuro): normal cognition Extrem: General: normal to inspection and no clubbing, cyanosis or edema Psych: Appearance: grossly normal Mental Status: mental status grossly normal Speech and movement: Other speech and movement exam findings present (Psych) (Difficult to understand due to palate surgery) Affect: normal affect Attitude: cooperative Thought content: Yes Normal thought content present Objective Data Vital Signs Vital Signs: Vital Signs - 24 hr 10/07/20 12:00 10/07/20 14:00 10/07/20 14:10 Temperature 36.1 C L Pulse Rate 115 H 68 65 Respiratory Rate 17 20 Blood Pressure 94/68 L 88/69 L Pulse Oximetry 100 99 10/07/20 14:15 10/07/20 14:30 10/07/20 16:00 Temperature 36.0 C L Pulse Rate 64 67 74 Respiratory Rate 21 H 17 20 Blood Pressure 92/71 L 101/72 122/85 Pulse Oximetry 95 97 94 10/07/20 18:00 10/07/20 20:00 10/07/20 20:51 Temperature 36.2 C L Pulse Rate 75 77 77 Respiratory Rate 16 Blood Pressure 126/74 Pulse Oximetry 96 10/07/20 22:00 10/07/20 23:26 10/08/20 00:00 Temperature 36.2 C L Pulse Rate 77 67 67 Respiratory Rate 20 20 Blood Pressure 138/87 Pulse Oximetry 96 96 10/08/20 02:00 10/08/20 04:00 10/08/20 06:00 Temperature 36.0 C L Pulse Rate 69 72 72 Respiratory Rate 18 Blood Pressure 145/94 H Pulse Oximetry 99 10/08/20 08:00 10/08/20 09:25 Temperature 35.8 C L Pulse Rate 70 74 Respiratory Rate 18 Blood Pressure 146/75 H Pulse Oximetry 96 Intake/Output Intake/Output: Intake & Output 10/05/20 10/06/20 10/07/20 10/08/20 23:59 23:59 23:59 23:5
--- NOTE | 2020-10-08 12:13 | PCDIET ---
Nutrition Follow-Up Complete: Nutrition Diagnosis: Altered GI function related to oral cancer history as evidenced by dysphagia with need for PEG feedings. Nutrition Goal: Patient to meet estimated nutritional needs. Goal in progress. Patient tolerating Jevity 1.2 - 240mL every 4 hours with 30mL water flush every 4 hours. Continue to recommend 300mL Jevity 1.2 every 4 hours to support weight gain; however, if 240mL boluses are preferred, could consider Jevity 1.5 which would provide 2160kcal and 92g protein daily when given every 4 hours. Last recorded weight is 69.2 k which is decreased from last review. -I/O. Bowel Motility: Last documented BM on 10/05/20. Labs Reviewed: No new labs available. Meds Noted: Unasyn, Zithromax, Lopressor Additional Notes: No documented skin breakdown. Will continue to monitor with same goal. Nutrition Monitoring and Evaluation: Follow up every Wednesday/Wednesday.
--- NOTE | 2020-10-08 18:08 | PM.DS ---
DS: Admitting Diagnosis Admitting Diagnosis Admitting Diagnosis: Acute respiratory failure with atrial fibrillation/flutter and pneumonia DS: Discharge Diagnosis Discharge Diagnosis (1) Acute respiratory failure with hypoxia: Code(s): J96.01 - Acute respiratory failure with hypoxia Status: Acute Assessment and Plan: Patient was on 4L O2 on admission. [place] related to PNA. He has been weaned to room air Resolved (2) Pneumonia: Qualifiers: Pneumonia type: due to unspecified organism Laterality: bilateral Lung location: unspecified part of lung Qualified Code(s): J18.9 - Pneumonia, unspecified organism Code(s): J18.9 - Pneumonia, unspecified organism Status: Acute Assessment and Plan: CXR showing bilateral infiltrates, right greater than left. WBC 11K but no fevers here. Patient started on Rocephin and Azithromycin but changed to Unasyn and Azithro 10/05 to cover for aspiration. Dexamethasone 6 mg IV x1 empirically but SARS-CoV-2 rt-PCR negative 10/05. BCx NGTD. BUN 50 probably from the steroids Continue azithromycin and Unasyn for total of 5 days while here and will have 2 more days of Augmentin q.12 hours at home NPO due to aspiration Patient being followed by Speech Therapy Continue Jevity 1.2 240 ml per FT q 4h (3) Atrial flutter with rapid ventricular response: Code(s): I48.92 - Unspecified atrial flutter Status: Resolved Assessment and Plan: Patient has a history of AFlutter. Manjinder was back in AFlutter on admisison. He was successfully cardioverted today back to [facility]. 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 No acute coronary syndrome Due to pneumonia and atrial flutter (5) Oral cancer: Onset Date: ~2002 Code(s): C06.9 - Malignant neoplasm of mouth, unspecified Status: Acute Assessment and Plan: Patient with oral cancer that is in remission. Surgery and RT have left him with progressively worsening dysphagia and dysarthria ST working with him Follow-up with his oncologist (6) Dysphagia causing pulmonary aspiration with swallowing: Code(s): R13.19 - Other dysphagia Status: Acute Assessment and Plan: As above, patient did not seen willing to be completely NPO and use the G-tube exclusively DS: Summary Hospital Course Hospital Course: 80-year-old male with recurrent fib flutter admitted with respiratory failure, pneumonia possibly aspiration, and recurrent flutter. Is treated with antibiotics quickly improved and had electrical cardioversion on the restoring sinus rhythm. He was saturating well on room air and able to be discharged home to complete a 7 day course of antibiotics. He was encouraged to use his G-tube exclusively because aspiration was thought to be the etiology of the recurrent pneumonias. Time Spent with Patient Time attestation: Total time spent providing and/or coordinating discharge services: 35 minutes Exam Narrative: Exam Narrative: Condition on discharge Blood pressure 134/78 pulse is 68 saturating 96% on room air afebrile Lungs clear CV regular rate rhythm Abdomen soft nontender Extremities without edema Neuro alert no focal deficits He was up independently and in stable condition to be discharged home DS: Data Data Completed and Pending Labs on day of discharge: Preliminary micro results at discharge 10/04/20 10:20 Blood Culture - Preliminary Blood 10/04/20 10:23 Blood Culture - Preliminary Blood Discharge Plan Discharge Attending physician on discharge: Sina Diamond Consulting providers: Galindo Tariq Discharging Clinician: Sina Diamond
== END 2020-10-08 14:24 | disposition home or self-care (01) | DRG 193 ==
LOC: ANHED 11:43 → ANHIMU 14:13
PROVIDERS: Internal Medicine; Physician Assistant; Specialist; Admitting Provider Family Medicine; Emergency Provider Emergency Medicine; PCP Internal Medicine; Visit Provider Internal Medicine
PROC: 5A2204Z Restoration of Cardiac Rhythm, Single (ICD-10-PCS; principal; 2020-10-07 13:30)
DX: J18.9 Pneumonia, unspecified organism (principal); J96.01 Acute respiratory failure with hypoxia; I48.92 Unspecified atrial flutter; C06.9 Malignant neoplasm of mouth, unspecified; R13.19 Other dysphagia; R47.1 Dysarthria and anarthria; Z20.828 Contact with and (suspected) exposure to other viral communicable diseases; I95.9 Hypotension, unspecified; I34.0 Nonrheumatic mitral (valve) insufficiency; R77.8 Other specified abnormalities of plasma proteins; I34.1 Nonrheumatic mitral (valve) prolapse; Z79.01 Long term (current) use of anticoagulants; Z85.118 Personal history of other malignant neoplasm of bronchus and lung; Z85.528 Personal history of other malignant neoplasm of kidney; Z87.891 Personal history of nicotine dependence; Z90.2 Acquired absence of lung [part of]; Z90.5 Acquired absence of kidney; Z92.3 Personal history of irradiation; Z93.1 Gastrostomy status
CPT/HCPCS: 36415; 71045; 80048; 80053; 80076; 82728; 83605; 83735; 83880; 84100; 84484; 85025; 85027; 85380; 85610; 85730; 86140; 86850; 86900; 86901; 87040; 87635; 92526; 92610; 92960; 93005; 96361; 96365; 96367; 99285; A9270; C9803; G0378; J0295; J0456; J0696; J1100; J7030; J7040; U0003

== ENCOUNTER 2021-01-25 12:29 | Emergency (ER) | payer MEDICARE, SELFPAY ==
[2021-01-25 12:33] VITALS: BP 114/64; PULSE 87; RESP 20; TEMP 36.5; O2SAT 95
--- NOTE | 2021-01-25 13:33 | ED.GENADULT ---
HPI - General Adult General Chief complaint: Skin/Abscess/Foreign Body Stated complaint: g tube complications Time Seen by Provider: 01/25/21 12:32 History of Present Illness HPI narrative: Patient is a 80-year-old male who presents the ER with concerns regarding his G-tube. Placed in December 2019. He is still able to give himself feeds through the G-tube. He came in today because there is debris that has some concerns. He is unsure who placed his G-tube he just knows that occurred at [facility]. 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 Patient has no fevers or chills or sweats. No abdominal pain. Related Data Home Medications Medication Instructions Recorded Confirmed levothyroxine [Euthyrox] 01/25/21 Allergies Allergy/AdvReac Type Severity Reaction Status Date / Time No Known Allergies Allergy Mild Verified 10/04/20 09:30 Review of Systems Constitutional: Constitutional: Denies chills, Denies fatigue and Denies fever(s) Gastrointestinal: Gastrointestinal: Denies abdominal pain, Denies diarrhea, Denies nausea and Denies vomiting Integumentary/Breasts: Comments: Mild irritation around G-tube site. [facility], [facility] Past Medical History Medical History (Updated 01/25/21 @ 13:50 by Suman Crane MD) Anxiety Atrial flutter Patient has been in persistent atrial flutter as of 09/13/2020 secondary to mitral valve regurgitation related to anterior leaflet prolapse. Current use of fpc anticoagulation Dysphagia causing pulmonary aspiration with swallowing Status post PEG tube insertion in December 2019. History of echocardiogram Echocardiogram in May 2014 showed vigorous contractility of the left ventricle with ejection fraction of 70%, mild anterior leaflet mitral valve prolapse with mild mitral regurgitation and mild left atrial enlargement. 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 He had transferred his care to [facility] thereafter however as of May 2020 he was being treated with chemotherapy at [facility] due to recurrence. Paroxysmal atrial fibrillation Renal cell carcinoma (~2011) Status post right nephrectomy. 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 Surgical History Surgical History (Updated 10/04/20 @ 22:58 by Dulce Hinkle PA-C) History of nephrectomy (~2011) Patient apparently had a large mass on his right kidney, reportedly renal cell carcinoma. History of oral surgery (~2002) Resection of left upper jaw malignancy. History of pneumonectomy (~2017) Wedge resection of squamous cell carcinoma of the right lung. Status post left inguinal herniorrhaphy Family History Family History Father Acute myocardial infarction Diabetes mellitus Social History Social History (Updated 10/04/20 @ 23:00 by Dulce Hinkle PA-C) Social History: The patient lives in his own home in [place]. He is and has 3 children. He has a cat that lives at home with him. 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 He smoked up to a pack of cigarettes per day and quit several years ago. He drinks an occasional beer. No drug use. His daughter, Lisette Dai, is his surrogate decision maker and he wishes to be a full code. Gender identity (if verbalized by the patient): Male Spiritual care concerns: No Agree to blood products: Yes Exam Narrative: Exam Narrative: GENERAL: Well-appearing, well-nourished, and in no acute distress. HEAD: Normocephalic, atraumatic. CHEST: Clear to auscultation. No respiratory distress. HEART: Regular rate and rhythm. Normal peripheral pulses. ABDOMEN: Soft, nontender, nondistended, G
== END 2021-01-25 14:03 | disposition home or self-care (01) ==
PROVIDERS: Emergency Provider Emergency Medicine; PCP Internal Medicine
DX: K94.23 Gastrostomy malfunction (principal); C10.9 Malignant neoplasm of oropharynx, unspecified; I48.92 Unspecified atrial flutter; I48.0 Paroxysmal atrial fibrillation; I34.0 Nonrheumatic mitral (valve) insufficiency; Z90.5 Acquired absence of kidney; Z85.528 Personal history of other malignant neoplasm of kidney; Z85.118 Personal history of other malignant neoplasm of bronchus and lung; Z90.2 Acquired absence of lung [part of]
CPT/HCPCS: 99281

== ENCOUNTER 2021-03-11 09:53 | Outpatient (CLI) | payer MEDICARE, SELFPAY ==
--- NOTE | ~2021-03-11 | US_ITS ---
EXAMINATION: US renal BI DATE: 03/11/2021 10:32 INDICATION: History of kidney cancer TECHNIQUE: Multiple grayscale and Doppler ultrasound images of the kidneys were obtained. COMPARISON: CT, 06/04/2020 FINDINGS: The right kidney measures 8.5 x 4.8 x 4.8 cm. Surgical clips are noted in the lower pole of the kidney. A 4 mm stone is noted in the mid kidney. Cysts of the kidney measure up to 12 mm. The le ft kidney measures 13.9 x 6.9 x 6.1 cm. Cysts of the left kidney measure up to 7.3 cm. The kidneys de monstrate normal parenchymal echogenicity. There is no hydronephrosis. The bladder is normal. IMPRESSION: 1. Surgical changes and nonobstructing stone of the right kidney. 2. Cysts of both kidneys. Reviewed, dictated and finalized at location A.
== END 2021-03-11 09:54 | disposition home or self-care (01) ==
PROVIDERS: PCP Internal Medicine
DX: Z85.528 Personal history of other malignant neoplasm of kidney (principal); R31.9 Hematuria, unspecified; C31.0 Malignant neoplasm of maxillary sinus; C05.0 Malignant neoplasm of hard palate; N28.1 Cyst of kidney, acquired
CPT/HCPCS: 76775

== ENCOUNTER 2021-03-13 13:10 | Outpatient (CLI) | payer MEDICARE, SELFPAY ==
[2021-03-13 14:07] LABS: Basophils Percent Auto 0.1 % (0.2-1.2); Eosinophils Percent Auto 0.5 % (0-4.4); Hematocrit 30.2 % (42.0-52.0); Hemoglobin 8.7 g/dL (14.0-18.0); Immature Granulocyte Absolute 0.03 K/mm3 (0.00-0.031); Immature Granulocyte Percent A 0.4 % (0-0.5); Lymphocytes Absolute Auto 0.64 K/mm3 (0.9-3.2); Mean Corpuscular HGB Conc 28.8 g/dl (32-36); Mean Corpuscular Hemoglobin 26.1 pg (26-34); Mean Corpuscular Volume 90.7 fl (80-100); Mean Platelet Volume 9.6 fl (7.4-10.4); Monocytes Absolute Auto 0.1 K/mm3 (0.1-0.6); Monocytes Percent Auto 1.3 % (2.6-8.5); Neutrophils Absolute Auto 7.2 K/mm3 (1.3-6.7); Neutrophils Percent Auto 89.7 % (45.5-73.1); Platelet Count Result 171 k/mm3 (150-375); Red Blood Count 3.33 M/mm3 (4.6-6.20); Red Cell Distribution Width 22.9 % (11.5-14.5)
[2021-03-13 14:21] LABS: Alanine Aminotransferase 19 U/L (4-50); Albumin Level 3.8 g/dL (3.5-5.1); Alkaline Phosphatase 51 U/L (38-126); Anion Gap 3 mmol/L (8-16); Aspartate Amino Transferase 25 U/L (17-59); Bilirubin,Total 0.4 mg/dL (0.2-1.3); Blood Urea Nitrogen 36 mg/dL (9-20); Calcium 9.1 mg/dL (8.4-10.2); Carbon Dioxide 32 mmol/L (22-30); Chloride 104 mmol/L (98-107); Estimated Glomerular Filt Rate > 60; Glucose 109 mg/dL (75-110); Potassium 3.6 mmol/L (3.4-5.0); Sodium 139 mmol/L (137-145)
== END 2021-03-13 13:11 | disposition home or self-care (01) ==
LOC: ANHLAB 13:16
PROVIDERS: PCP Internal Medicine
DX: C05.0 Malignant neoplasm of hard palate (principal); C77.0 Secondary and unspecified malignant neoplasm of lymph nodes of head, face and neck
CPT/HCPCS: 36415; 80053; 85025

== ENCOUNTER 2021-07-31 02:03 | Day surgery (SDC) | payer MEDICARE, SELFPAY ==
[2021-07-23 13:19] VITALS: BMI 23.8
--- NOTE | 2021-07-30 18:35 | PM.HPGS ---
History of Present Illness History of Present Illness Consent: Risks, benefits, and alternatives have been discussed and questions answered. Patient agrees to proceed with procedure. Chief complaint: Diarrhea, malfunctioning peg tube Narrative: Hieu Silva is a 80 year old male who has had a PEG tube, inserted 9 months ago, which has become decrepit, brittle, neeeding replacement. He has severe diarrhea since receiving Covid vaccine Review of Systems Review of Systems: All systems reviewed & are unremarkable except as noted in HPI and below PMFSH Past Medical History Medical History Anxiety Atrial flutter Patient has been in persistent atrial flutter as of 09/13/2020 secondary to mitral valve regurgitation related to anterior leaflet prolapse. 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 History of echocardiogram Echocardiogram in May 2014 showed vigorous contractility of the left ventricle with ejection fraction of 70%, mild anterior leaflet mitral valve prolapse with mild mitral regurgitation and mild left atrial enlargement. Left rib fracture Oral cancer (~2002) Squamous cell carcinoma of the tongue, treated at [place] with radiation and resection of the left upper jaw. He had transferred his care to [facility] thereafter however as of May 2020 he was being treated with chemotherapy at [place] due to recurrence. Paroxysmal atrial fibrillation Renal cell carcinoma (~2011) Status post right nephrectomy. 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 Surgical History Surgical History History of nephrectomy (~2011) Patient apparently had a large mass on his right kidney, reportedly renal cell carcinoma. History of oral surgery (~2002) Resection of left upper jaw malignancy. History of pneumonectomy (~2018) Wedge resection of squamous cell carcinoma of the right lung. Status post left inguinal herniorrhaphy Family History Family History Father Acute myocardial infarction Diabetes mellitus Social History Social History Social History: The patient lives in his own home in [place]. He is and has 3 children. He has a cat that lives at home with him. 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 He smoked up to a pack of cigarettes per day and quit several years ago. He drinks an occasional beer. No drug use. His daughter, Lisette Dai, is his surrogate decision maker and he wishes to be a full code. Smoking packs per day: 0.5 Smoking cigarettes per day: 10.0 Years smoked: 50 Smoking pack-years: 25.00 Smoking status: Former smoker Tobacco type: cigarettes Alcohol intake: current Substance use: never Substance use type: does not use Living arrangements: alone Gender identity (if verbalized by the patient): Male Spiritual care concerns: No Agree to blood products: Yes Meds Home Medications and Allergies Home Medications Medication Instructions Recorded Confirmed Type apixaban [Eliquis] 5 mg FEEDING TUBE Q12HR #60 tablet 10/08/20 07/31/21 Rx famotidine 20 mg PO DAILY 07/23/21 07/31/21 History levothyroxine [Euthyrox] 125 mcg FEEDING TUBE DAILY 07/23/21 07/31/21 History metoprolol succinate 25 mg PO DAILY 07/23/21 07/31/21 History Allergies Allergy/AdvReac Type Severity Reaction Status Date / Time No Known Allergies Allergy Mild Verified 07/31/21 09:38 Assessment and Plan Assessment and plan (1) Malfunction of gastrostomy tube: Code(s): K94.23 - Gastrostomy malfunction Status: Acute Assessment and Plan: G-tube replace
[2021-07-31 09:41] VITALS: BP 116/63; PULSE 83; RESP 16; TEMP 36.3; O2SAT 95; BMI 23.8
[2021-07-31] MEDS: LACTATED RINGERS 1,000 ML 150 ML IV CONT (09:58)
--- NOTE | 2021-07-31 10:52 | SUR.OPER ---
PEG replacement ended at 1048. Colonoscopy started at 1051.
--- NOTE | 2021-07-31 10:53 | SUR.OPER ---
20F Peg tube replacement: Lot#:[id number] Ref#:[id number]
[2021-07-31 11:07] VITALS: BP 94/53; PULSE 62; RESP 16; O2SAT 100
[2021-07-31 11:17] VITALS: BP 120/71; PULSE 64; RESP 22; O2SAT 100
[2021-07-31 11:27] VITALS: BP 128/79; PULSE 72; RESP 15; O2SAT 98
--- NOTE | 2021-07-31 15:24 | OP_ITS ---
DATE OF PROCEDURE: 07/31/2021 PREOPERATIVE DIAGNOSIS: Malfunction of gastrostomy tube. POSTOPERATIVE DIAGNOSIS: Malfunction of gastrostomy tube. DESCRIPTION OF PROCEDURE: With the patient in a supine position, his indwelling old gastrostomy tube, and original PEG tube were removed with traction technique after lubricating the tract with KY jelly. A new [employer] 20-Romanian replacement G-tube was inserted easily into the stoma. The balloon inflated with 6 mL of water and the bumper moved down toward the abdominal wall. He tolerated the procedure well. D I MT: Edith
== END 2021-07-31 11:46 | disposition home or self-care (01) ==
PROVIDERS: PCP Internal Medicine; Visit Provider Internal Medicine Gastroenterology
PROC: 0DJD8ZZ Inspection of Lower Intestinal Tract, Via Natural or Artificial Opening Endoscopic (ICD-10-PCS; CPT 45378; principal; 2021-07-31 11:00)
PROC: 0DH63UZ Insertion of Feeding Device into Stomach, Percutaneous Approach (ICD-10-PCS; CPT 43246; 2021-07-31 11:00)
DX: K52.9 Noninfective gastroenteritis and colitis, unspecified (principal); K94.23 Gastrostomy malfunction; I48.92 Unspecified atrial flutter; C06.9 Malignant neoplasm of mouth, unspecified; I34.0 Nonrheumatic mitral (valve) insufficiency; I34.1 Nonrheumatic mitral (valve) prolapse; F41.9 Anxiety disorder, unspecified; Z85.528 Personal history of other malignant neoplasm of kidney; Z90.5 Acquired absence of kidney; Z79.899 Other long term (current) drug therapy; Z85.118 Personal history of other malignant neoplasm of bronchus and lung; Z92.3 Personal history of irradiation; Z92.21 Personal history of antineoplastic chemotherapy; Z87.891 Personal history of nicotine dependence; Z79.01 Long term (current) use of anticoagulants
CPT/HCPCS: 45380; 43762; 88305; J2704; J7120

== ENCOUNTER 2021-08-01 09:58 | Day surgery (SDC) | payer MEDICARE, SELFPAY ==
[2021-08-01] VITALS (7 sets, daily range): BP systolic 95–154; BP diastolic 51–73; PULSE 69–91; RESP 15–21; TEMP 36.3; O2SAT 96–99
--- NOTE | ~2021-08-01 | XR_ITS ---
EXAMINATION: XR abdomen/kub 1V DATE: 08/01/2021 11:50 INDICATION: G-tube displacement TECHNIQUE: A supine view of the abdomen was obtained. COMPARISON: None. FINDINGS: No gastrostomy tube identified. No dilated loops of gas-filled bowel to suggest obstruction. Emboliza tion coil projecting over the right kidney. Moderate lumbar spondylosis. Mild streaky bibasilar atele ctasis. IMPRESSION: 1. Nonobstructive bowel gas pattern. Reviewed, dictated and finalized at location A.
--- NOTE | 2021-08-01 11:18 | ED.GENADULT ---
HPI - General Adult General Chief complaint: Unspecified Stated complaint: g tube fell out Time Seen by Provider: 08/01/21 11:17 Source: patient and family Mode of arrival: ambulatory Limitations: no limitations History of Present Illness HPI narrative: Patient had G-tube replaced yesterday by Dr. Ortega. He stated that it popped out this morning when he went to feed himself. He is concerned that there is a piece broken off inside of his abdomen because he thought it looked rather short. He also had some other questions regarding the use of the G-tube as this is a different style that he had in the past. There is a dressing over the stoma, no erythema or drainage. Onset (ago): hour(s) Related Data Home Medications Medication Instructions Recorded Confirmed famotidine 20 mg PO DAILY 07/23/21 07/31/21 levothyroxine [Euthyrox] 125 mcg FEEDING TUBE DAILY 07/23/21 07/31/21 metoprolol succinate 25 mg PO DAILY 07/23/21 07/31/21 Allergies Allergy/AdvReac Type Severity Reaction Status Date / Time No Known Allergies Allergy Mild Verified 08/01/21 12:32 Review of Systems Review of Systems: All systems reviewed & are unremarkable except as noted in HPI and below [facility]LY [facility] Past Medical History Medical History Anxiety Atrial flutter Patient has been in persistent atrial flutter as of 09/13/2020 secondary to mitral valve regurgitation related to anterior leaflet prolapse. Current use of usp anticoagulation Dysphagia causing pulmonary aspiration with swallowing Status post PEG tube insertion in December 2019. History of echocardiogram Echocardiogram in May 2014 showed vigorous contractility of the left ventricle with ejection fraction of 70%, mild anterior leaflet mitral valve prolapse with mild mitral regurgitation and mild left atrial enlargement. Left rib fracture Oral cancer (~2002) Squamous cell carcinoma of the tongue, treated at [place] with radiation and resection of the left upper jaw. He had transferred his care to [facility] thereafter however as of May 2020 he was being treated with chemotherapy at [place] due to recurrence. Paroxysmal atrial fibrillation Renal cell carcinoma (~2011) Status post right nephrectomy. 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 Surgical History Surgical History History of nephrectomy (~2011) Patient apparently had a large mass on his right kidney, reportedly renal cell carcinoma. History of oral surgery (~2002) Resection of left upper jaw malignancy. History of pneumonectomy (~2017) Wedge resection of squamous cell carcinoma of the right lung. Status post left inguinal herniorrhaphy Family History Family History Father Acute myocardial infarction Diabetes mellitus Social History Social History Social History: The patient lives in his own home in [place]. He is and has 3 children. He has a cat that lives at home with him. 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 He smoked up to a pack of cigarettes per day and quit several years ago. He drinks an occasional beer. No drug use. His daughter, Lisette Dai, is his surrogate decision maker and he wishes to be a full code. Smoking packs per day: 0.5 Smoking cigarettes per day: 10.0 Years smoked: 50 Smoking pack-years: 25.00 Smoking status: Former smoker Tobacco type: cigarettes Alcohol intake: current Substance use: never Substance use type: does not use Gender identity (if verbalized by the patient): Male Spiritual care concerns: No Agree to blood products: Yes Exam Const: General: cooperative, healthy appearing, comfortable and no acute distress Resp:
--- NOTE | 2021-08-01 12:29 | PM.HPGS ---
History of Present Illness History of Present Illness Consent: Risks, benefits, and alternatives have been discussed and questions answered. Patient agrees to proceed with procedure. Chief complaint: g tube fell out Narrative: Hieu Silva is a 80 year old male Who presented to the emergency room this morning with a complaint that his G-tube fell out. He had a replacement G-tube inserted yesterday. When he tried to feed himself 1st liquid shot out to tube and then the tube itself fell out of his abdomen. Review of Systems Review of Systems: All systems reviewed & are unremarkable except as noted in HPI and below PMFSH Past Medical History Medical History Anxiety Atrial flutter Patient has been in persistent atrial flutter as of 09/13/2020 secondary to mitral valve regurgitation related to anterior leaflet prolapse. 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 History of echocardiogram Echocardiogram in May 2014 showed vigorous contractility of the left ventricle with ejection fraction of 70%, mild anterior leaflet mitral valve prolapse with mild mitral regurgitation and mild left atrial enlargement. Left rib fracture Oral cancer (~2002) Squamous cell carcinoma of the tongue, treated at [place] with radiation and resection of the left upper jaw. He had transferred his care to [facility] thereafter however as of May 2020 he was being treated with chemotherapy at [facility] due to recurrence. Paroxysmal atrial fibrillation Renal cell carcinoma (~2011) Status post right nephrectomy. 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 Surgical History Surgical History History of nephrectomy (~2011) Patient apparently had a large mass on his right kidney, reportedly renal cell carcinoma. History of oral surgery (~2002) Resection of left upper jaw malignancy. History of pneumonectomy (~2017) Wedge resection of squamous cell carcinoma of the right lung. Status post left inguinal herniorrhaphy Family History Family History Father Acute myocardial infarction Diabetes mellitus Social History Social History Social History: The patient lives in his own home in [place]. He is and has 3 children. He has a cat that lives at home with him. 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 He smoked up to a pack of cigarettes per day and quit several years ago. He drinks an occasional beer. No drug use. His daughter, Lisette Dai, is his surrogate decision maker and he wishes to be a full code. Smoking packs per day: 0.5 Smoking cigarettes per day: 10.0 Years smoked: 50 Smoking pack-years: 25.00 Smoking status: Former smoker Tobacco type: cigarettes Alcohol intake: current Substance use: never Substance use type: does not use Gender identity (if verbalized by the patient): Male Spiritual care concerns: No Agree to blood products: Yes Meds Home Medications and Allergies Home Medications Medication Instructions Recorded Confirmed Type Eliquis 5 mg FEEDING TUBE Q12HR #60 tablet 10/08/20 07/31/21 Rx famotidine 20 mg PO DAILY 07/23/21 07/31/21 History levothyroxine [Euthyrox] 125 mcg FEEDING TUBE DAILY 07/23/21 07/31/21 History metoprolol succinate 25 mg PO DAILY 07/23/21 07/31/21 History Allergies Allergy/AdvReac Type Severity Reaction Status Date / Time No Known Allergies Allergy Mild Verified 08/01/21 11:09 Vital Signs Vital Signs - 24 hr 08/01/21 10:00 08/01/21 11:04 Temperature 36.3 C L Pulse Rate 91 90 Respiratory Rate 18 18 Blood Pressure 125/63 120
[2021-08-01] MEDS: LACTATED RINGERS 1,000 ML 150 ML IV CONT (12:49)
--- NOTE | 2021-08-01 12:54 | WPDANESEPPF ---
Anes - Initial Pre Proc Eval Procedure: Operation Date: 08/01/21 14:15 Proposed Procedures p Percutaneous Endoscopic Gastrostomy - Colton Ortega MD Date/Time: 08/01/21 12:54 Surgeon: Colton Ortega MD Pre Op Diagnosis: g tube fell out Patient Data Age: 80 Gender: M Height: 1.83 m Weight: 77.1 kg Last Vital Signs Temp 97.3 F L 08/01/21 12:35 Pulse 70 08/01/21 12:35 Resp 18 08/01/21 12:35 BP 130/51 L 08/01/21 12:35 Pulse Ox 96 08/01/21 12:35 Allergies Allergy/AdvReac Type Severity Reaction Status Date / Time No Known Allergies Allergy Mild Verified 08/01/21 12:32 Home Medications Medication Instructions Recorded Confirmed Type Eliquis 5 mg FEEDING TUBE Q12HR #60 tablet 10/08/20 07/31/21 Rx famotidine 20 mg PO DAILY 07/23/21 07/31/21 History levothyroxine [Euthyrox] 125 mcg FEEDING TUBE DAILY 07/23/21 07/31/21 History metoprolol succinate 25 mg PO DAILY 07/23/21 07/31/21 History Patient hx anesthesia problems: none Family hx anesthesia problems: none Results Review: All pre-operative results and documents have been reviewed as part of the pre-operative evaluation. [facility] Past Medical History Medical History Anxiety Atrial flutter Patient has been in persistent atrial flutter as of 09/13/2020 secondary to mitral valve regurgitation related to anterior leaflet prolapse. 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 History of echocardiogram Echocardiogram in May 2014 showed vigorous contractility of the left ventricle with ejection fraction of 70%, mild anterior leaflet mitral valve prolapse with mild mitral regurgitation and mild left atrial enlargement. Left rib fracture Oral cancer (~2002) Squamous cell carcinoma of the tongue, treated at [facility] with radiation and resection of the left upper jaw. He had transferred his care to [facility] thereafter however as of May 2020 he was being treated with chemotherapy at [facility] due to recurrence. Paroxysmal atrial fibrillation Renal cell carcinoma (~2011) Status post right nephrectomy. Right wrist fracture Squamous cell carcinoma of lung (~2018) Status post wedge resection. Surgical History Surgical History History of nephrectomy (~2011) Patient apparently had a large mass on his right kidney, reportedly renal cell carcinoma. History of oral surgery (~2002) Resection of left upper jaw malignancy. History of pneumonectomy (~2017) Wedge resection of squamous cell carcinoma of the right lung. Status post left inguinal herniorrhaphy Family History Family History Father Acute myocardial infarction Diabetes mellitus Social History Social History Social History: The patient lives in his own home in [place]. He is and has 3 children. He has a cat that lives at home with him. 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 He smoked up to a pack of cigarettes per day and quit several years ago. He drinks an occasional beer. No drug use. His daughter, Lisette Dai, is his surrogate decision maker and he wishes to be a full code. Smoking packs per day: 0.5 Smoking cigarettes per day: 10.0 Years smoked: 50 Smoking pack-years: 25.00 Smoking status: Former smoker Tobacco type: cigarettes Alcohol intake: current Substance use: never Substance use type: does not use Gender identity (if verbalized by the patient): Male Spiritual care concerns: No Agree to blood products: Yes Anes - Eval Final PreProcedure Day of Procedure 08/01/21 12:54 Patient weight: normal Heart: irregular rhythm Lungs: clear to auscultation
--- NOTE | 2021-08-01 14:19 | SUR.PHASEII ---
Dr. Ortega spoke wit pt's daughter Hope postoperatively.
--- NOTE | 2021-08-01 15:03 | PM.HPGS ---
History of Present Illness History of Present Illness Consent: Risks, benefits, and alternatives have been discussed and questions answered. Patient agrees to proceed with procedure. Chief complaint: g tube fell out Narrative: Hieu Silva is a 80 year old male Who has chronic indwelling gastrostomy tube. His tube was replaced yesterday with a replacement G-tube He states that this morning when he was giving himself a feeding that the tube fell out. He was also disappointed that the replacement tube does not have a clamp to prevent leakage as his original PEG did Review of Systems Review of Systems: All systems reviewed & are unremarkable except as noted in HPI and below PMFSH Past Medical History Medical History Anxiety Atrial flutter Patient has been in persistent atrial flutter as of 09/13/2020 secondary to mitral valve regurgitation related to anterior leaflet prolapse. 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 History of echocardiogram Echocardiogram in May 2014 showed vigorous contractility of the left ventricle with ejection fraction of 70%, mild anterior leaflet mitral valve prolapse with mild mitral regurgitation and mild left atrial enlargement. Left rib fracture Oral cancer (~2002) Squamous cell carcinoma of the tongue, treated at [facility] with radiation and resection of the left upper jaw. He had transferred his care to [facility] thereafter however as of May 2020 he was being treated with chemotherapy at [facility] due to recurrence. Paroxysmal atrial fibrillation Renal cell carcinoma (~2011) Status post right nephrectomy. 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 Surgical History Surgical History History of nephrectomy (~2011) Patient apparently had a large mass on his right kidney, reportedly renal cell carcinoma. History of oral surgery (~2002) Resection of left upper jaw malignancy. History of pneumonectomy (~2018) Wedge resection of squamous cell carcinoma of the right lung. Status post left inguinal herniorrhaphy Family History Family History Father Acute myocardial infarction Diabetes mellitus Social History Social History Social History: The patient lives in his own home in [place]. He is and has 3 children. He has a cat that lives at home with him. 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 He smoked up to a pack of cigarettes per day and quit several years ago. He drinks an occasional beer. No drug use. His daughter, Lisette Dai, is his surrogate decision maker and he wishes to be a full code. Smoking packs per day: 0.5 Smoking cigarettes per day: 10.0 Years smoked: 50 Smoking pack-years: 25.00 Smoking status: Former smoker Tobacco type: cigarettes Alcohol intake: current Substance use: never Substance use type: does not use Gender identity (if verbalized by the patient): Male Spiritual care concerns: No Agree to blood products: Yes Meds Home Medications and Allergies Home Medications Medication Instructions Recorded Confirmed Type Eliquis 5 mg FEEDING TUBE Q12HR #60 tablet 10/08/20 07/31/21 Rx famotidine 20 mg PO DAILY 07/23/21 07/31/21 History levothyroxine [Euthyrox] 125 mcg FEEDING TUBE DAILY 07/23/21 07/31/21 History metoprolol succinate 25 mg PO DAILY 07/23/21 07/31/21 History Allergies Allergy/AdvReac Type Severity Reaction Status Date / Time No Known Allergies Allergy Mild Verified 08/01/21 12:32 Vital Signs Vital Signs - 24 hr 08/01/21 10:00 08/01/21 11:04 08/01/21 12:35 Temperature
== END 2021-08-01 14:20 | disposition home or self-care (01) ==
LOC: ANHED 11:18 → ANHASCIMG 11:57 → ANHENDO 12:28
PROVIDERS: Emergency Provider Emergency Medicine; PCP Internal Medicine; Visit Provider Internal Medicine Gastroenterology
PROC: 0DH63UZ Insertion of Feeding Device into Stomach, Percutaneous Approach (ICD-10-PCS; CPT 43246; principal; 2021-08-01 14:15)
DX: Z43.1 Encounter for attention to gastrostomy (principal); R13.10 Dysphagia, unspecified; I48.92 Unspecified atrial flutter; F41.9 Anxiety disorder, unspecified; I34.0 Nonrheumatic mitral (valve) insufficiency; I34.1 Nonrheumatic mitral (valve) prolapse; Z85.810 Personal history of malignant neoplasm of tongue; Z85.528 Personal history of other malignant neoplasm of kidney; Z85.118 Personal history of other malignant neoplasm of bronchus and lung; Z92.3 Personal history of irradiation; Z92.21 Personal history of antineoplastic chemotherapy; Z90.5 Acquired absence of kidney; Z90.2 Acquired absence of lung [part of]; Z87.891 Personal history of nicotine dependence
CPT/HCPCS: 43246; 74018; 99285; J2704; J7120

== ENCOUNTER 2024-01-04 17:55 | Inpatient (IN) | payer MEDICARE, SELFPAY ==
[2024-01-04] VITALS (19 sets, daily range): BP systolic 97–138; BP diastolic 55–98; PULSE 84–141; RESP 17–30; TEMP 36.1–36.6; O2SAT 93–97
--- NOTE | ~2024-01-04 | XR_ITS ---
EXAMINATION: XR chest 1V portable Exam Date/Time: 01/04/2024 18:19 CDT HISTORY: sob Comparison: 10/04/2020; CT cap 06/04/2020. RESULT: Lines, tubes, and devices: Suture line over the right upper lung. Lungs and pleura: Emphysematous/senescent change. Mild diffuse reticular opacities in the peripheral right upper and bilateral peripheral mid and lower lung zones. Cardiomediastinal silhouette: Stable. Other: No acute osseous or upper abdominal finding. IMPRESSION: Emphysematous change. Mild interstitial edema versus chronic interstitial change. Reviewed, dictated and finalized at location K. IMPRESSION: Emphysematous change. Mild interstitial edema versus chronic interstitial [place]
--- NOTE | ~2024-01-04 | XR_ITS ---
EXAMINATION: XR chest 1V portable DATE: 01/08/2024 09:05 INDICATION: Congestion TECHNIQUE: frontal view of the chest was obtained. COMPARISON: Chest radiograph dated 01/04/2024 FINDINGS: Suture lines in the right midlung zone. Increased patchy airspace opacity left lower lung zone which could represent atelectasis or pneumonia. Increased interstitial pattern in the right lower lung zone which could represent mild pulmonary edema. Thin bandlike discoid atelectasis at the right midlung z one. No pleural effusion or pneumothorax. Cardiomegaly with pulmonary vascular congestion. Visualized bones and soft tissues are unremarkable. IMPRESSION: 1. Cardiomegaly with pulmonary vascular congestion and likely mild pulmonary edema in the lower lungs . 2. Increasing patchy airspace opacities in the left lower lung zone which could represent pneumonia o r atelectasis. Reviewed, dictated and finalized at location A. IMPRESSION: 1. Cardiomegaly with pulmonary vascular congestion and likely mild pulmonary ed eleonora in the lower lungs. 2. Increasing patchy airspace opacities in the left lower lung zone which could represent pneumonia or atelectasis.
--- NOTE | 2024-01-04 18:03 | ECG_ITS ---
Measurements Intervals Thompson Rate: 140 P: 100 WI: 133 QRS: 43 QRSD: 125 T: -22 QT: 291 QTc: 445 Interpretive Statements ATRIAL FLUTTER/TACHYCARDIA WITH RAPID VENTRICULAR RESPONSE FREQUENT VENTRICULAR PREMATURE COMPLEXES CONSIDER ANTERIOR INFARCT, AGE INDETERMINATE ST-T WAVE ABNORMALITY IN INFERIOR LEADS- CONSIDER ISCHEMIA ABNORMAL ECG COMPARED TO ECG 10/07/2020 13:54:46 ATRIAL FLUTTER/TACHYCARDIA NOW PRESENT ST-T WAVE ABNORMALITY NOW PRESENT Electronically Signed On 01-04-2024 20:08:31 CDT by Cedric Vasquez D.O.
[2024-01-04 18:18] LABS: Basophils Percent Auto 0.5 % (0.2-1.2); Eosinophils Absolute Auto 0.2 K/mm3 (0-0.3); Eosinophils Percent Auto 2.4 % (0-4.4); Hematocrit 49.3 % (42.0-52.0); Hemoglobin 15.6 g/dL (14.0-18.0); Immature Granulocyte Absolute 0.01 K/mm3 (0.00-0.031); Immature Granulocyte Percent A 0.2 % (0-0.5); Lymphocytes Absolute Auto 1.07 K/mm3 (0.9-3.2); Lymphocytes Percent Auto 16.8 % (18.3-44.2); Mean Corpuscular HGB Conc 31.6 g/dl (32-36); Mean Corpuscular Hemoglobin 28.6 pg (26-34); Mean Corpuscular Volume 90.3 fl (80-100); Mean Platelet Volume 11.2 fl (7.4-10.4); Monocytes Absolute Auto 0.6 K/mm3 (0.1-0.6); Monocytes Percent Auto 8.9 % (2.6-8.5); Neutrophils Absolute Auto 4.6 K/mm3 (1.3-6.7); Neutrophils Percent Auto 71.2 % (45.5-73.1); Platelet Count Result 145 k/mm3 (150-375); Red Blood Count 5.46 M/mm3 (4.6-6.20); Red Cell Distribution Width 15.1 % (11.5-14.5); White Blood Count 6.4 K/mm3 (4.5-10.0)
--- NOTE | 2024-01-04 18:45 | PC.NURSE ---
pt has a chronic g-tube for feedings due to getting radiation for having cancer in the jaw.
[2024-01-04 19:08] LABS: Alanine Aminotransferase 22 U/L (6-50); Albumin Level 3.8 g/dL (3.5-5.1); Alkaline Phosphatase 69 U/L (38-126); Anion Gap 8 mmol/L (8-16); Aspartate Amino Transferase 26 U/L (17-59); Blood Urea Nitrogen 43 mg/dL (9-20); Calcium 9.3 mg/dL (8.4-10.2); Carbon Dioxide 26 mmol/L (22-30); Chloride 104 mmol/L (98-107); Estimated CRCL calculation 78 ml/min; Estimated Glomerular Filt Rate > 60; Glucose 100 mg/dL (65-110); Potassium 4.2 mmol/L (3.4-5.0); Sodium 138 mmol/L (137-145)
--- NOTE | 2024-01-04 19:44 | ED.ARRPALP ---
HPI - Arrhythmia/Palpitations General Chief Complaint: Arrhythmia/Palpitations Stated Complaint: heart palpitations Time Seen by Provider: 01/04/24 18:02 History of Present Illness HPI narrative: Patient is an 83-year-old male with a history of AFib on Eliquis, oral cancer status post G-tube, hypothyroidism presenting with chest pain. Patient states that he feels that his AFib has been acting up for the last couple of months. States that he has had discomfort in his chest that sometimes radiates into his abdomen. He has been increasingly short of breath especially with exertion. States he is compliant with his metoprolol and Eliquis. He is also complaining of some viral symptoms with cough and nasal congestion. No leg swelling, orthopnea, back pain. Related Data Home Medications Medication Instructions Recorded Confirmed levothyroxine 125 mcg tablet 125 mcg feeding tube DAILY 07/23/21 01/05/24 (Euthyrox) metoprolol succinate 25 mg 75 mg PO DAILY 07/23/21 01/05/24 tablet,extended release 24 hr apixaban 5 mg tablet (Eliquis) 5 mg feeding tube BID 01/05/24 01/05/24 Allergies Allergy/AdvReac Type Severity Reaction Status Date / Time No Known Allergies Allergy Mild Verified 01/04/24 18:18 Review of Systems Review of Systems: All systems reviewed & are unremarkable except as noted in HPI and below PMFSH Past Medical History Medical History (Updated 01/11/24 @ 22:44 by Jayashree Jean MD) Anxiety Atrial flutter Patient has been in persistent atrial flutter as of 09/13/2020 secondary to mitral valve regurgitation related to anterior leaflet prolapse. Current use of buttermaker continuous churn anticoagulation Dysphagia causing pulmonary aspiration with swallowing Status post PEG tube insertion in December 2019. History of echocardiogram Echocardiogram in May 2014 showed vigorous contractility of the left ventricle with ejection fraction of 70%, mild anterior leaflet mitral valve prolapse with mild mitral regurgitation and mild left atrial enlargement. Left rib fracture Oral cancer (~2002) Squamous cell carcinoma of the tongue, treated at [facility] with radiation and resection of the left upper jaw. He had transferred his care to [facility] thereafter however as of May 2020 he was being treated with chemotherapy at [facility] due to recurrence. Paroxysmal atrial fibrillation Renal cell carcinoma (~2011) Status post right nephrectomy. 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 Surgical History Surgical History History of nephrectomy (~2011) Patient apparently had a large mass on his right kidney, reportedly renal cell carcinoma. History of oral surgery (~2002) Resection of left upper jaw malignancy. History of pneumonectomy (~2018) Wedge resection of squamous cell carcinoma of the right lung. Status post left inguinal herniorrhaphy Family History Family History Father Acute myocardial infarction Diabetes mellitus Social History Social History Social History: The patient lives in his own home in [place]. He is and has 3 children. He has a cat that lives at home with him. 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 He smoked up to a pack of cigarettes per day and quit several years ago. He drinks an occasional beer. No drug use. His daughter, Lisette Dai, is his surrogate decision maker and he wishes to be a full code. Smoking packs per day: 0.5 Smoking cigarettes per day: 10.0 Years smoked: 50 Smoking pack-years: 25.00 Smoking status: Light tobacco smoker Tobacco type: cigarettes Alcohol intake: never Substance use: never Substance use type: does not use Do You Feel Safe in your Home?: Yes Lack of
[2024-01-04 19:56] LABS: Lipase 100 U/L (23-300); Magnesium 2.2 mg/dL (1.6-2.3)
[2024-01-04] MEDS: SODIUM CHLORIDE 0.9% IV 1,000 ML 999 ML IV CONT ×2 (19:56)
--- NOTE | 2024-01-04 20:03 | PC.NURSE ---
delaying administration of cardizem at this time due to pt low bp. MD verbal requested to give fluids and reassess after fluids are given.
[2024-01-04 20:09] LABS: NT Pro B Type Natriuretic Pept 3640 pg/mL (19.9-100); Troponin I < 0.012 ng/mL (0.000-0.034)
[2024-01-04 20:12] LABS: Lactic Acid Reflex 0.9 mmol/L (0.7-2.0)
[2024-01-04 20:13] LABS: INR 1.3; Prothrombin Time 16.6 Seconds (11.1-14.7)
[2024-01-04 20:14] LABS: Partial Thromboplastin Time 35.1 Seconds (22.3-36.8)
[2024-01-04] MEDS: dilTIAZem HCl INJ 25 MG/5 ML VIAL 10 MG IV PUSH (20:40)
[2024-01-04] MEDS: FUROSEMIDE INJ 40 MG/4 ML VIAL IV PUSH (21:31)
--- NOTE | 2024-01-04 22:02 | PM.IMHP ---
H&P: HPI History of Present Illness Date/Time: 01/04/24 22:02 Chief Complaint: Palpitations. This is a 83-year-old male patient with past medical history of atrial fibrillation on Eliquis history of oral cancer status post G-tube hypothyroidism who came to the emergency room complaining of chest pain. Patient said that he felt that his AFib has been acting up for last couple of months. He mentioned discomfort in his chest and sometimes radiated into his abdomen. He has also been feeling increasing shortness of breath especially with exertion. Patient is awake alert not in acute distress. Denies any fever chills dizziness lightheadedness no blurred visions no chest pain at present. No shortness of breath. No nausea vomiting no diarrhea no dysuria no muscle and joint pains. Vital signs in the emergency room was stable. CBC was mainly in rate. PT was 16.6. INR was 1.3. CMP was significant for BUN 43. Creatinine 0.70. ProBNP was 3640. Troponin was less than 0.012. Chest x-ray showed emphysematous change. EKG showed atrial flutter/tachycardia with rapid ventricular response frequent ventricular premature complexes. Mild interstitial edema versus chronic interstitial change. Patient was given IV Cardizem IV fluids and IV Lasix in the emergency room. Review of Systems Review of Systems: A 12 point review of system is done and is only positive what dictated in the history of present illness. [facility] Past Medical History Medical History Anxiety Atrial flutter Patient has been in persistent atrial flutter as of 09/13/2020 secondary to mitral valve regurgitation related to anterior leaflet prolapse. Current use of termite helper anticoagulation Dysphagia causing pulmonary aspiration with swallowing Status post PEG tube insertion in December 2019. History of echocardiogram Echocardiogram in May 2014 showed vigorous contractility of the left ventricle with ejection fraction of 70%, mild anterior leaflet mitral valve prolapse with mild mitral regurgitation and mild left atrial enlargement. Left rib fracture Oral cancer (~2002) Squamous cell carcinoma of the tongue, treated at [facility] with radiation and resection of the left upper jaw. He had transferred his care to [facility] thereafter however as of May 2020 he was being treated with chemotherapy at [facility] due to recurrence. Paroxysmal atrial fibrillation Renal cell carcinoma (~2011) Status post right nephrectomy. Right wrist fracture Squamous cell carcinoma of lung (~2018) Status post wedge resection. Surgical History Surgical History History of nephrectomy (~2011) Patient apparently had a large mass on his right kidney, reportedly renal cell carcinoma. History of oral surgery (~2002) Resection of left upper jaw malignancy. History of pneumonectomy (~2018) Wedge resection of squamous cell carcinoma of the right lung. Status post left inguinal herniorrhaphy Family History Family History Father Acute myocardial infarction Diabetes mellitus Social History Social History Social History: The patient lives in his own home in [place]. He is and has 3 children. He has a cat that lives at home with him. 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 He smoked up to a pack of cigarettes per day and quit several years ago. He drinks an occasional beer. No drug use. His daughter, Lisette Dai, is his surrogate decision maker and he wishes to be a full code. Smoking packs per day: 0.5 Smoking cigarettes per day: 10.0 Years smoked: 50 Smoking pack-years: 25.00 Smoking status: Former smoker Tobacco type: cigarettes Alcohol intake: current Substance use: never [place]
--- NOTE | 2024-01-04 22:42 | ECG_ITS ---
Measurements Intervals [place] Rate: 94 P: GA: 0 QRS: 28 QRSD: 129 T: -11 QT: 356 QTc: 446 Interpretive Statements ATRIAL FLUTTER/TACHYCARDIA INCOMPLETE RIGHT BUNDLE BRANCH BLOCK DELAYED PRECORDIAL R/S TRANSITION BORDERLINE T WAVE ABNORMALITY- INFERIOR LEADS BASELINE ARTIFACT- I, III, AVF ABNORMAL ECG COMPARED TO ECG 01/04/2024 18:06:46 HEART RATE HAS DECREASED Electronically Signed On 01-05-2024 6:33:48 CDT by Cedric Vasquez D.O.
--- NOTE | 2024-01-04 23:06 | PC.NURSE ---
care and report given to TANNER Real. all questions answered.
[2024-01-04 23:19] LABS: Troponin I < 0.012 ng/mL (0.000-0.034)
[2024-01-05] VITALS (34 sets, daily range): BP systolic 93–122; BP diastolic 54–88; PULSE 64–138; RESP 18–95; TEMP 36.1–36.8; O2SAT 91–97; BMI 24.4; BMI 24.0
--- NOTE | 2024-01-05 00:20 | PC.NURSE ---
Attempted to call the patient's daughter about patient placement in the IMU, no answer.
--- NOTE | 2024-01-05 00:35 | ADMGEN ---
This patient, Hieu Silva, was admitted to IMU Room 203-01. Patient/family oriented to hospital policies and general routines including ID bracelet, bed and alarms, visiting hours, pain management, procedures, bathroom and other care routines, personal items, smoking policy, room service/diet, and visiting hours. Information on how to activate the Rapid Response Team has been discussed. Patient/Family are encouraged to report perceived risks to care and to ask questions if they do not understand what they are told or what they should do.
[2024-01-05] MEDS: dilTIAZem 100 MG/100 ML 100 MG/100 ML BAG IV CONT ×3 (03:13→23:32)
[2024-01-05 03:41] LABS: Troponin I < 0.012 ng/mL (0.000-0.034)
[2024-01-05] MEDS: LEVOTHYROXINE SODIUM 125 MCG TABLET FEED TUBE (06:01)
[2024-01-05] MEDS: APIXABAN 5 MG TABLET FEED TUBE ×2 (08:35→17:27)
--- NOTE | 2024-01-05 09:11 | PM.IMPN ---
Progress Note: A&P Assessment and Plan (1) Shortness of breath: Code(s): R06.02 - Shortness of breath Status: Acute Plan 83-year-old male with a past medical history atrial flutter on Eliquis, did tobacco abuse, history of oral cancer status post G-tube, hypothyroidism, history of squamous cell carcinoma of the lung, anxiety presents with complaints of chest pain or shortness of breath worse on exertion. He feels that his heart rate has been acting up for the last couple of months and sometimes pain radiates into his abdomen. In the emergency department the patient was given Lasix due to chest x-ray being read as pulmonary edema versus chronic interstitial lung disease. Given IV Cardizem 10 mg x 1 and subsequently placed on Cardizem drip 5 milligrams/hour. Admitted on 01/03 A flutter with RVR -intermittently rate controlled now on Cardizem drip 5 milligrams/hour. Restart his metoprolol at a higher dose and what he takes at home. As well, metoprolol succinate tablets a hospital cannot be crushed for feeding tube. So will start metoprolol tartrate 75 mg p.o. b.i.d.. Discontinue Cardizem and monitor. -continue Eliquis 5 mg feeding tube b.i.d. -check TSH and T4 in the setting of hypothyroidism Shortness of breath -shortness of breath certainly be due to rapid heart rate although the patient does have a coarse wheeze he does not appear to be in decompensated heart failure. Do not think Lasix at this point is beneficial. Unable to view diaphragms on chest x-ray although he does have evidence of hyperinflated lung volumes. Give DuoNeb x1. -troponin negative x3 -check flu COVID RSV PCR. If not anything else he could have a mild COPD exacerbation. Continue to monitor otherwise. Tobacco abuse -counseled. Nicotine patch as needed FEN: Resume home feeds. Saline lock IV GI prophylaxis: Not indicated DVT prophylaxis: Resume home Eliquis 5 mg feeding tube b.i.d. Lines: Peripheral IV, G-tube Code Status: Full code Dispo: Stable in IMU. Continue telemetry. Subjective Date/time seen: 01/05/24 09:11 Interval history: No acute overnight events. Patient reports improvement in symptoms. Denies shortness of breath feels he is back to baseline. Denies chest pain Review of Systems Review of Systems: All systems reviewed & are unremarkable except as noted in HPI and below (Subjective) Exam Const: General: comfortable and no acute distress Other: A&O x3 Eyes: Pupils: Equal, round and reactive pupils present Neck: Neck: supple Resp: Effort & Inspection: normal respiratory effort Auscultation: no crackles Other: Coarse wheeze GI: GI Palp: Yes Soft to palpation and No Tenderness to palpation present (GI) Extrem: General: no edema Objective Data Vital Signs Vital Signs: Vital Signs - 24 hr 01/04/24 17:57 01/04/24 18:04 01/04/24 18:15 Temperature 96.9 F L 97.3 F L Pulse Rate 141 H 130 H 141 H Respiratory Rate 20 17 Blood Pressure 138/85 123/85 Pulse Oximetry 93 96 Oxygen Delivery Room Air Room Air 01/04/24 18:18 01/04/24 18:24 01/04/24 19:00 Temperature Pulse Rate 119 H 106 H Respiratory Rate 30 H 25 H Blood Pressure 98/85 L 99/73 L 97/55 L Pulse Oximetry 94 94 Oxygen Delivery 01/04/24 19:15 01/04/24 19:31 01/04/24 19:46 Temperature Pulse Rate 106 H 126 H 128 H Respiratory Rate 28 H 29 H Blood Pressure 104/77 100/57 L 107/79 Pulse Oximetry 94 94 94 Oxygen Delivery 01/04/24 19:15 01/04/24 20:15 01/04/24 20:30 Temperature Pulse Rate 106 H 137 H 137 H Respiratory Rate 30 H 19 Blood Pressure 125/98 H 122/96 H Pulse Oximetry 97 97 Oxygen Delivery 01/04/24 20:45 01/04/24 21:00 01/04/24 21:15 Temperature Pulse Rate 84 88 92 Respiratory Rate 19 22 H Blood Pressure 106/73 125/90 Pulse Oximetry 96 95 Oxygen Delivery 01/04/24 21:31 01/04/24 22:16 01/04/24 23:00 Temperature Pulse Rate 87 100 105 H Respirat
[2024-01-05] MEDS: METOPROLOL TARTRATE TAB 25 MG, METOPROLOL TARTRATE TAB 50 MG 75 MG FEED TUBE ×2 (09:32→20:29)
[2024-01-05 09:58] LABS: Free T4 Free Thyroxine 1.61 ng/mL (0.78-2.19)
[2024-01-05] MEDS: IPRATROPIUM 0.5 MG/ALBUTEROL SULFATE 2.5 MG AMPUL.NEB 3 ML INHALATION (10:45)
[2024-01-05 12:33] LABS: Influenza A QL RT-PCR Negative (Negative); Influenza B QL RT-PCR Negative (Negative); RSV RNA, RT-PCR Negative (Negative); SARS-CoV-2 RNA PCR Negative (Negative)
[2024-01-05] MEDS: METOPROLOL TARTRATE INJ 5 MG/5 ML VIAL IV PUSH ×2 (12:41→13:19)
[2024-01-06] VITALS (24 sets, daily range): BP systolic 93–123; BP diastolic 57–93; PULSE 64–140; RESP 16–22; TEMP 35.6–37.1; O2SAT 90–94
[2024-01-06 04:58] LABS: Basophils Percent Auto 0.5 % (0.2-1.2); Eosinophils Absolute Auto 0.2 K/mm3 (0-0.3); Eosinophils Percent Auto 2.9 % (0-4.4); Hematocrit 48.1 % (42.0-52.0); Hemoglobin 14.8 g/dL (14.0-18.0); Immature Granulocyte Absolute 0.02 K/mm3 (0.00-0.031); Immature Granulocyte Percent A 0.3 % (0-0.5); Immature Platelet Fraction Pct 4.6 % (0.9-11.2); Lymphocytes Percent Auto 15.1 % (18.3-44.2); Mean Corpuscular HGB Conc 30.8 g/dl (32-36); Mean Corpuscular Hemoglobin 28.3 pg (26-34); Mean Platelet Volume 11.2 fl (7.4-10.4); Monocytes Absolute Auto 0.7 K/mm3 (0.1-0.6); Monocytes Percent Auto 9.8 % (2.6-8.5); Neutrophils Absolute Auto 4.8 K/mm3 (1.3-6.7); Neutrophils Percent Auto 71.4 % (45.5-73.1); Platelet Count Result 121 k/mm3 (150-375); Red Blood Count 5.23 M/mm3 (4.6-6.20); Red Cell Distribution Width 15.2 % (11.5-14.5); White Blood Count 6.6 K/mm3 (4.5-10.0)
[2024-01-06 05:20] LABS: Anion Gap 3 mmol/L (8-16); Blood Urea Nitrogen 31 mg/dL (9-20); Calcium 9.1 mg/dL (8.4-10.2); Carbon Dioxide 30 mmol/L (22-30); Chloride 106 mmol/L (98-107); Estimated CRCL calculation 78 ml/min; Estimated Glomerular Filt Rate > 60; Glucose 95 mg/dL (65-110); Magnesium 2.2 mg/dL (1.6-2.3); Sodium 139 mmol/L (137-145)
[2024-01-06] MEDS: LEVOTHYROXINE SODIUM 125 MCG TABLET FEED TUBE (05:31)
[2024-01-06] MEDS: METOPROLOL TARTRATE TAB 25 MG, METOPROLOL TARTRATE TAB 50 MG 75 MG FEED TUBE ×2 (09:38→20:44)
[2024-01-06] MEDS: APIXABAN 5 MG TABLET FEED TUBE ×2 (09:40→16:52)
[2024-01-06] MEDS: dilTIAZem HCL 30 MG TABLET PO ×4 (09:41→23:30)
--- NOTE | 2024-01-06 09:46 | PM.IMPN ---
Progress Note: A&P Assessment and Plan (1) Shortness of breath: Code(s): R06.02 - Shortness of breath Status: Acute Plan 83-year-old male with a past medical history atrial flutter on Eliquis, did tobacco abuse, history of oral cancer status post G-tube, hypothyroidism, history of squamous cell carcinoma of the lung, anxiety presents with complaints of chest pain or shortness of breath worse on exertion. He feels that his heart rate has been acting up for the last couple of months and sometimes pain radiates into his abdomen. In the emergency department the patient was given Lasix due to chest x-ray being read as pulmonary edema versus chronic interstitial lung disease. Given IV Cardizem 10 mg x 1 and subsequently placed on Cardizem drip 5 milligrams/hour. Admitted on 01/03 A flutter with RVR -attempted to transition him to metoprolol at an increased dose from his home dose however was unsuccessful. Placed back on diltiazem drip at 5 milligrams/hour. Start diltiazem p.o. 30 mg q.6 hours. Instructed nurse to DC the Dilt drip if his heart rate remains under 110. -continue Eliquis 5 mg feeding tube b.i.d. -TSH elevated. T4 1.6 Shortness of breath -shortness of breath could certainly be due to rapid heart rate although the patient does have a coarse wheeze he does not appear to be in decompensated heart failure. Lasix was given on admission although withhold this. Unable to view diaphragms on chest x-ray although he does have evidence of hyperinflated lung volumes. Start ipratropium nebs q.6 hours scheduled. -troponin negative x3 -COVID flu RSV PCR. If not anything else he could have a mild COPD exacerbation. He thinks his breathing is better although Tobacco abuse -counseled. Nicotine patch as needed FEN: Resume home feeds. Dietitian consulted, Jevity started. He was feeding himself with a cocktail he made himself at home with multiple ingredients. Saline lock IV GI prophylaxis: Not indicated DVT prophylaxis: Resume home Eliquis 5 mg feeding tube b.i.d. Lines: Peripheral IV, G-tube Code Status: Full code Dispo: Stable in IMU. Continue telemetry. Subjective Date/time seen: 01/06/24 09:46 Interval history: No acute overnight events. Patient thinks his breathing is doing okay. Not much of a historian although. Review of Systems Review of Systems: All systems reviewed & are unremarkable except as noted in HPI and below (Subjective) Exam Const: General: comfortable and no acute distress Other: A&O x3 Eyes: Pupils: Equal, round and reactive pupils present Neck: Neck: supple Resp: Effort & Inspection: normal respiratory effort Auscultation: no crackles Other: Coarse wheeze GI: GI Palp: Yes Soft to palpation and No Tenderness to palpation present (GI) Extrem: General: no edema Objective Data Vital Signs Vital Signs: Vital Signs - 24 hr 01/05/24 10:45 01/05/24 10:58 01/05/24 11:05 Temperature Pulse Rate 80 84 Respiratory Rate Blood Pressure Pulse Oximetry 97 Oxygen Delivery Room Air 01/05/24 10:00 01/05/24 11:27 01/05/24 12:41 Temperature 97.8 F Pulse Rate 87 64 135 H Respiratory Rate 95 H Blood Pressure 97/63 L Pulse Oximetry 95 Oxygen Delivery 01/05/24 13:19 01/05/24 12:00 01/05/24 12:00 Temperature Pulse Rate 138 H 117 H Respiratory Rate Blood Pressure Pulse Oximetry Oxygen Delivery Room Air 01/05/24 14:55 01/05/24 16:00 01/05/24 14:00 Temperature 98.1 F Pulse Rate 127 H 74 127 H Respiratory Rate 20 Blood Pressure 93/59 L Pulse Oximetry 95 Oxygen Delivery 01/05/24 16:00 01/05/24 18:00 01/05/24 16:50 Temperature Pulse Rate 86 110 H Respiratory Rate Blood Pressure Pulse Oximetry Oxygen Delivery Room Air 01/05/24 18:08 01/05/24 20:16 01/05/24 20:29 Temperature 97.7 F Pulse Rate 82 94 98 Respiratory Rate 20 Blood Pressure 97/54 L Pulse Oximetr
[2024-01-06 10:34] LABS: Appearance Urine Cloudy (Clear); Bacteria Urine None Seen /hpf; Bilirubin Urine Negative (Negative); Blood Urine 3+ (Negative); Color Urine Dark Yellow (Yellow); Glucose Urine UA Negative (Negative); Ketones Urine 1+ mg/dL (Negative); Leukocyte Esterase Ur 1+ LEU/UL (Negative); Mucus Urine Present /lpf; Nitrate Urine Negative (Negative); Non Pathogenic Casts 0-2; Protein Urine 1+ mg/dL (Negative); RBC Urine >100 /hpf (0-2); Specific Grav Ur 1.019 (1.001-1.035); Squamous Epithelial Cell Urine None Seen /hpf (Few); WBC Urine 0-5 /hpf (0-3); pH Urine 5.5 (5.0-9.0)
[2024-01-06 10:54] LABS: Add Urine Microscopic? YES
[2024-01-06] MEDS: IPRATROPIUM BR 0.02% INH SOLN 0.5 MG/2.5 ML VIAL INHALATION ×2 (13:08→20:54)
--- NOTE | 2024-01-06 14:53 | PC.NURSE ---
On 01/06/24, the student, [Anthony Quijano ], provided care and completed [facility] documentation on this patient. I have reviewed the student's documentation and agree with the findings.
[2024-01-07] VITALS (33 sets, daily range): BP systolic 82–150; BP diastolic 49–81; PULSE 76–166; RESP 16–24; TEMP 36.3–37.4; O2SAT 80–98
[2024-01-07] MEDS: IPRATROPIUM BR 0.02% INH SOLN 0.5 MG/2.5 ML VIAL INHALATION ×4 (02:25→20:57)
[2024-01-07] MEDS: dilTIAZem HCl INJ 25 MG/5 ML VIAL (03:30)
[2024-01-07] MEDS: LEVOTHYROXINE SODIUM 125 MCG TABLET FEED TUBE (05:32)
[2024-01-07] MEDS: dilTIAZem HCL 30 MG TABLET PO (05:33)
[2024-01-07] MEDS: METOPROLOL TARTRATE TAB 25 MG, METOPROLOL TARTRATE TAB 50 MG 75 MG FEED TUBE ×2 (09:37→21:12)
[2024-01-07] MEDS: APIXABAN 5 MG TABLET FEED TUBE ×2 (09:37→16:24)
--- NOTE | 2024-01-07 10:19 | PCNFU ---
Nutrition Follow-Up Complete: Inadequate energy intake related to NPO, tube feeding regimen as evidenced by patient report of feedings at home Goal: Meet estimated protein energy needs - Meeting needs with tube feeding Pt current nutrition is Jevity 1.5 bolus 6- 8oz containers per day (2 containers TID). Flush 300 ml water TID with feedings. Nutrition recommendation: Continue with current tube feeding regimen. Last recorded weight is 81.5 kg. Bowel Motility: Pt says he is having bowel movements normally, no BMs charted. Labs Reviewed: BUN 31 Meds Noted: Skin: WNL Additional Notes: Pt refused PM feeding last night, he did not explain a reason. Previously he was formulating his own tube feeding at home with [employer] instant breakfast and supplements. When asked he is noncommittal about wanting to continue with Isosource 1.5 (available formula) at home vs. his own formulation. Home TF has been set up to get this formula set up for him at home. Unsure if he will use the commercial formula or his own tube feeding formulation. He is tolerating the Jevity 1.5 - total 6 cans per day for 2130 kcal, 91 g protein, 1080 ml free water with 300 ml flushes TID, total water 1980 ml/day. Monitor tube feeding tolerance, labs, weights, stool patterns, plan of care Follow up Tuesdays and Fridays per policy
[2024-01-07] MEDS: SODIUM CHLORIDE 0.9% IV 500 ML IV CONT (12:49)
--- NOTE | 2024-01-07 14:31 | PM.CNCAR ---
Assessment and Plan Assessment and plan (1) Atrial flutter: Code(s): I48.92 - Unspecified atrial flutter Status: Acute Plan This is an 83-year-old man with chronic atrial flutter as stated above rhythm control was abandoned several years ago interestingly he has had very good rate control with metoprolol for the last several years. He does have a lot of airway congestion and some shortness of breath and this is probably in part what is driving up his heart rate. With advancement in his metoprolol dosage and adding diltiazem his rate control has not improved that much and he is now somewhat hypotensive. At this point for that reason I will abandon his diltiazem, keep him on metoprolol and I will add some digoxin to his regimen. His renal function is normal so it should be reasonably safe to use digoxin in this setting. I will give him a 0.5 mg through his G-tube at this time soon then start a maintenance dose as of tomorrow morning and we will follow his telemetry with you. There is obviously no role in maintaining rhythm since this patient has been in AFib/flutter for several years and restoring sinus rhythm is no longer an option. This patient has cardiac and electrophysiology follow-up at [facility] in the [facility] clinic, for some reason he chose to come here when he was concerned about worsening of his heart rate control with atrial fib Galindo Tariq MD [facility] History of Present Illness History of Present Illness Consult date/time: 01/07/24 14:31 Reason For Visit: Afib RVR, Volume overload Narrative: This is an 83-year-old man I am seeing at the request of the hospitalist for assistance with the it management of atrial flutter with rapid ventricular response. This patient is known to me from a number of years ago for management of this same arrhythmia but he currently follows regularly with a bank accountant elsewhere at the [facility] office out at [facility]. The patient lives in this vicinity however he came to the hospital here a couple of days ago complaining that his heart rate was accelerated for several days. He was found to be in atrial flutter with rapid ventricular response. He normally takes metoprolol 75 mg daily which according to the notes in his physician's chart provides reasonably good rate control and apixaban for anticoagulation. His heart rate was 140-150 mostly with 2-1 conduction and so the hospitalist team has been adding diltiazem as well as raising the dose of his metoprolol. At times his rate is better controlled but for the most part it is not and with the addition of diltiazem and advancing his metoprolol he had now has somewhat marginal blood pressure. He is asymptomatic with this and he is in the room receiving a nebulizer breathing treatment when I came into see him for consultation he otherwise has no other complaints. The patient is known to have chronic persistent atrial fib and flutter which is been the case for a number of years. He failed rhythm control after an attempted cardioversion on amiodarone back in 2019. He only stayed in sinus rhythm for less than 1 month after this. Consultation with the clamp carrier operator at [facility] in the [facility] office led to the consider the decision to leave him in chronic AF. They did offer him a obtuse aggressive ablation procedure and or going back on amiodarone but he was well rate controlled and hemodynamically stable and appropriate decision was made to abandon rhythm control at that time. As such she has not been in sinus rhythm for several years. There is therefore no reason to consider anything other than rate control at this time. His other important ?comorbidities include history of cancer of his tongue in 2010, history of renal cell cancer with a nephrectomy back in 2011 and squamous cell cancer of his lung with wedge resection in 2018. Review of Systems Constitutional: Constitutional: Reports l
[2024-01-07] MEDS: DIGOXIN 250 MCG TABLET 500 MCG PO (14:44)
--- NOTE | 2024-01-07 16:15 | PM.IMPN ---
Progress Note: A&P Assessment and Plan (1) Shortness of breath: Code(s): R06.02 - Shortness of breath Status: Acute Plan 83-year-old male with a past medical history atrial flutter on Eliquis, did tobacco abuse, history of oral cancer status post G-tube, hypothyroidism, history of squamous cell carcinoma of the lung, anxiety presents with complaints of chest pain or shortness of breath worse on exertion. He feels that his heart rate has been acting up for the last couple of months and sometimes pain radiates into his abdomen. In the emergency department the patient was given Lasix due to chest x-ray being read as pulmonary edema versus chronic interstitial lung disease. Given IV Cardizem 10 mg x 1 and subsequently placed on Cardizem drip 5 milligrams/hour. Admitted on 01/03 A flutter with RVR -attempted to transition him to metoprolol at an increased dose from his home dose however was unsuccessful. Placed back on diltiazem drip at 5 milligrams/hour. Start diltiazem p.o. 30 mg q.6 hours. Instructed nurse to DC the Dilt drip if his heart rate remains under 110. -continue Eliquis 5 mg feeding tube b.i.d. -TSH elevated. T4 1.6 Cardiology: With advancement in his metoprolol dosage and adding diltiazem his rate control has not improved that much and he is now somewhat hypotensive.? At this point for that reason I will abandon his diltiazem, keep him on metoprolol and I will add some digoxin to his regimen.? His renal function is normal so it should be reasonably safe to use digoxin in this setting.? I will give him a 0.5 mg through his G-tube at this time soon then start a maintenance dose as of tomorrow morning and we will follow his telemetry with you.? There is obviously no role in maintaining rhythm since this patient has been in AFib/flutter for several years and restoring sinus rhythm is no longer an option.? Shortness of breath -shortness of breath could certainly be due to rapid heart rate although the patient does have a coarse wheeze he does not appear to be in decompensated heart failure. Lasix was given on admission although withhold this. Unable to view diaphragms on chest x-ray although he does have evidence of hyperinflated lung volumes. Start ipratropium nebs q.6 hours scheduled. -troponin negative x3 -COVID flu RSV PCR. If not anything else he could have a mild COPD exacerbation. He thinks his breathing is better although Tobacco abuse -counseled. Nicotine patch as needed FEN: Resume home feeds. Dietitian consulted, Jevity started. He was feeding himself with a cocktail he made himself at home with multiple ingredients. Saline lock IV GI prophylaxis: Not indicated DVT prophylaxis: Resume home Eliquis 5 mg feeding tube b.i.d. Lines: Peripheral IV, G-tube Code Status: Full code Dispo: Stable in IMU. Continue telemetry. Time Spent With Patient Time with patient: 25 - 35 minutes Subjective Date/time seen: 01/07/24 16:15 Interval history: No acute overnight events. Patient thinks his breathing is doing okay. Eager to go home. Gurgling sounds audible, likely 2/2 dysphagia Review of Systems Review of Systems: A 12 point review of system is done and is only positive what dictated in the history of present illness. All systems reviewed & are unremarkable except as noted in HPI and below (Subjective) Exam Const: General: comfortable and no acute distress Other: A&O x3 HENMT: Mouth: Yes moist mucous membranes Other: Normocephalic atraumatic. Eyes: Pupils: Equal, round and reactive pupils present Neck: Neck: supple Other: Supple no thyromegaly. Resp: Effort & Inspection: normal respiratory effort Auscultation: no crackles Other: Coarse wheeze Cardio: Rhythm: abnormal rhythm Other: S1-S2 is regular. No murmur heard. GI: Other: Soft nontender good bowel sounds.; +PEG tube Skin: General skin exam: normal color Neuro: Cranial nerves:
[2024-01-07] MEDS: SCOPOLAMINE 1 MG PATCH 1 PATCH TRANSDERM (16:25)
[2024-01-07] MEDS: WATER FOR IRRIGATION, STERILE 1,000 ML BOTTLE 1000 ML (21:28)
[2024-01-08] VITALS (31 sets, daily range): BP systolic 118–168; BP diastolic 68–100; PULSE 101–155; RESP 18–28; TEMP 36.6–37.4; O2SAT 90–98
[2024-01-08] MEDS: IPRATROPIUM BR 0.02% INH SOLN 0.5 MG/2.5 ML VIAL INHALATION ×4 (01:27→20:50)
[2024-01-08 05:18] LABS: Basophils Percent Auto 0.1 % (0.2-1.2); Eosinophils Percent Auto 0.1 % (0-4.4); Hematocrit 48.2 % (42.0-52.0); Hemoglobin 14.6 g/dL (14.0-18.0); Immature Granulocyte Absolute 0.02 K/mm3 (0.00-0.031); Immature Granulocyte Percent A 0.3 % (0-0.5); Immature Platelet Fraction Pct 5.4 % (0.9-11.2); Lymphocytes Absolute Auto 0.63 K/mm3 (0.9-3.2); Lymphocytes Percent Auto 9.3 % (18.3-44.2); Mean Corpuscular HGB Conc 30.3 g/dl (32-36); Mean Corpuscular Hemoglobin 28.1 pg (26-34); Mean Corpuscular Volume 92.7 fl (80-100); Mean Platelet Volume 11.7 fl (7.4-10.4); Monocytes Absolute Auto 0.7 K/mm3 (0.1-0.6); Monocytes Percent Auto 9.8 % (2.6-8.5); Neutrophils Absolute Auto 5.4 K/mm3 (1.3-6.7); Neutrophils Percent Auto 80.4 % (45.5-73.1); Platelet Count Result 99 k/mm3 (150-375); Red Cell Distribution Width 15.2 % (11.5-14.5); White Blood Count 6.8 K/mm3 (4.5-10.0)
[2024-01-08 05:23] LABS: Alanine Aminotransferase 28 U/L (6-50); Albumin Level 3.7 g/dL (3.5-5.1); Alkaline Phosphatase 80 U/L (38-126); Anion Gap 1 mmol/L (8-16); Aspartate Amino Transferase 42 U/L (17-59); Bilirubin,Total 2.2 mg/dL (0.2-1.3); Blood Urea Nitrogen 27 mg/dL (9-20); Calcium 9.2 mg/dL (8.4-10.2); Carbon Dioxide 33 mmol/L (22-30); Chloride 103 mmol/L (98-107); Estimated CRCL calculation 90 ml/min; Estimated Glomerular Filt Rate > 60; Glucose 117 mg/dL (65-110); Sodium 137 mmol/L (137-145)
[2024-01-08] MEDS: LEVOTHYROXINE SODIUM 125 MCG TABLET FEED TUBE (05:55)
--- NOTE | 2024-01-08 08:34 | PM.PNCARD ---
Progress Note: A&P Assessment and Plan (1) Atrial flutter: Code(s): I48.92 - Unspecified atrial flutter Status: Acute Plan 83-year-old white male with: Chronic atrial fib/flutter from previously heart rate has been well controlled with metoprolol at 75 mg daily. That dosage has been increased and started him on digoxin yesterday. As I mentioned in my consult there is no opportunity for taoism of sinus rhythm as he has been in AF for several years. Heart rate control is commonly challenging when the underlying atrial rhythm is atrial flutter which is his predominant atrial rhythm. Fortunately with his a flutter and RVR he is hemodynamically stable. Will continue to load him with digoxin with mother 0.5 mg dosage this morning. Galindo Tariq MD [facility] Subjective Date/time seen: Date of service: 01/08/24 08:34 Interval history: Follow-up visit in this 83-year-old man with: Chronic atrial fib/flutter as detailed in consult note yesterday. Patient is admitted with shortness of breath and mucus/airway congestion. He also has increased ventricular response to his atrial fib. Heart rate has previously been well controlled on a lower dose of metoprolol. He is otherwise asymptomatic of his AFib. Continues to have heart rate of 120-130 for the most part. He was briefly well controlled yesterday afternoon after his 1st dose of digoxin. Exam Const: Other: Elderly man wearing face mask oxygen resting comfortably HENMT: Mouth: Yes moist mucous membranes Eyes: Sclera: sclerae normal Neck: Neck: supple Resp: Other: Coarse breath sounds, large airway rhonchi Cardio: Rate: tachycardic Rhythm: abnormal rhythm irregularly irregular GI: GI Palp: Yes Soft to palpation Auscultation: normal bowel sounds Skin: General skin exam: normal color Neuro: Other: Alert and oriented Extrem: General: normal to inspection Other: No edema, good perfusion Objective Data Vital Signs Vital Signs: Vital Signs - 24 hr 01/07/24 09:37 01/07/24 11:38 01/07/24 10:00 Temperature 36.3 C L Pulse Rate 140 H 97 139 H Respiratory Rate 16 Blood Pressure 87/63 L Pulse Oximetry 96 Oxygen Delivery Oxygen Flow Rate 01/07/24 12:00 01/07/24 13:40 01/07/24 12:00 Temperature Pulse Rate 91 Respiratory Rate Blood Pressure 114/71 Pulse Oximetry 97 Oxygen Delivery Nasal Cannula Oxygen Flow Rate 2 01/07/24 14:00 01/07/24 14:13 01/07/24 14:15 Temperature Pulse Rate 136 H 137 H Respiratory Rate 24 H Blood Pressure Pulse Oximetry 96 Oxygen Delivery Nasal Cannula Oxygen Flow Rate 2 01/07/24 14:24 01/07/24 11:30 01/07/24 14:44 Temperature Pulse Rate 136 H 138 H Respiratory Rate 24 H Blood Pressure Pulse Oximetry 96 Oxygen Delivery Nasal Cannula Oxygen Flow Rate 2 01/07/24 16:09 01/07/24 16:00 01/07/24 16:00 Temperature 36.6 C Pulse Rate 138 H 139 H Respiratory Rate 24 H Blood Pressure 104/65 Pulse Oximetry 96 96 Oxygen Delivery Nasal Cannula Oxygen Flow Rate 2 01/07/24 18:00 01/07/24 20:25 01/07/24 20:58 Temperature 37.4 C Pulse Rate 141 H 136 H Respiratory Rate 22 H Blood Pressure 150/81 H Pulse Oximetry 98 96 Oxygen Delivery Nasal Cannula Oxygen Flow Rate 2 01/07/24 21:00 01/07/24 21:12 01/07/24 20:00 Temperature Pulse Rate 146 H 166 H 140 H Respiratory Rate 22 H Blood Pressure Pulse Oximetry Oxygen Delivery Oxygen Flow Rate 01/07/24 22:00 01/07/24 21:15 01/07/24 21:10 Temperature Pulse Rate 115 H 143 H Respiratory Rate 22 H Blood Pressure Pulse Oximetry 95 Oxygen Delivery Nasal Cannula Oxygen Flow Rate 2 01/08/24 00:00 01/08/24 01:28 01/08/24 00:00 Temperature 37.2 C Pulse Rate 101 H 128 H 103 H Respiratory Rate 18 22 H Blood Pressure 121/81 Pulse Oximetry 92 Oxygen Delivery Oxygen Flow Rate 01/08/24
[2024-01-08] MEDS: DIGOXIN 250 MCG TABLET PO ×2 (09:17→09:18)
[2024-01-08] MEDS: APIXABAN 5 MG TABLET FEED TUBE ×2 (09:18→17:52)
[2024-01-08] MEDS: METOPROLOL TARTRATE TAB 25 MG, METOPROLOL TARTRATE TAB 50 MG 75 MG FEED TUBE ×2 (09:18→21:32)
--- NOTE | 2024-01-08 12:16 | PC.NURSE ---
Patient is refusing bed alarm, using the urinal or BSC, and using call-light before getting out of bed. He was educated on his high heart rate and SOB by this RN and charge nurse, Katiana. He is still refusing.
--- NOTE | 2024-01-08 16:26 | PM.IMPN ---
Progress Note: A&P Assessment and Plan (1) Shortness of breath: Code(s): R06.02 - Shortness of breath Status: Acute Assessment and Plan: Acute, severe. Likely 2/2 Pneumonia, fluid overload Oxygen, Lasix, Doxycycline, Ceftriaxone (2) Atrial flutter: Code(s): I48.92 - Unspecified atrial flutter Status: Acute Assessment and Plan: Cardiology on board; on Digoxin, Metoprolol (3) Dysphagia causing pulmonary aspiration with swallowing: Code(s): R13.19 - Other dysphagia Status: Acute Assessment and Plan: s/p PEG tube, 2020 (4) Acute respiratory failure with hypoxia: Code(s): J96.01 - Acute respiratory failure with hypoxia Status: Acute Assessment and Plan: Oxygen, Lasix, Doxycycline, Ceftriaxone (5) Pneumonia: Qualifiers: Pneumonia type: due to unspecified organism Laterality: bilateral Lung location: unspecified part of lung Qualified Code(s): J18.9 - Pneumonia, unspecified organism Code(s): J18.9 - Pneumonia, unspecified organism Status: Acute Assessment and Plan: On Doxycycline, Ceftriaxone, IS, Robitussin (6) Fluid overload: Code(s): E87.70 - Fluid overload, unspecified Status: Acute Assessment and Plan: On Lasix; Monitor (7) Gurgling breath sounds: Code(s): R09.89 - Other specified symptoms and signs involving the circulatory and respiratory systems Status: Acute Assessment and Plan: On Sopalamine patch Plan 83-year-old male with a past medical history atrial flutter on Eliquis, did tobacco abuse, history of oral cancer status post G-tube, hypothyroidism, history of squamous cell carcinoma of the lung, anxiety presents with complaints of chest pain or shortness of breath worse on exertion. He feels that his heart rate has been acting up for the last couple of months and sometimes pain radiates into his abdomen. In the emergency department the patient was given Lasix due to chest x-ray being read as pulmonary edema versus chronic interstitial lung disease. Given IV Cardizem 10 mg x 1 and subsequently placed on Cardizem drip 5 milligrams/hour. Admitted on 01/03 A flutter with RVR -attempted to transition him to metoprolol at an increased dose from his home dose however was unsuccessful. Placed back on diltiazem drip at 5 milligrams/hour. Start diltiazem p.o. 30 mg q.6 hours. Instructed nurse to DC the Dilt drip if his heart rate remains under 110. -continue Eliquis 5 mg feeding tube b.i.d. -TSH elevated. T4 1.6 Cardiology: With advancement in his metoprolol dosage and adding diltiazem his rate control has not improved that much and he is now somewhat hypotensive.? At this point for that reason I will abandon his diltiazem, keep him on metoprolol and I will add some digoxin to his regimen.? His renal function is normal so it should be reasonably safe to use digoxin in this setting.? I will give him a 0.5 mg through his G-tube at this time soon then start a maintenance dose as of tomorrow morning and we will follow his telemetry with you.? There is obviously no role in maintaining rhythm since this patient has been in AFib/flutter for several years and restoring sinus rhythm is no longer an option.? 01/08/24: Still tachycardic, on Digoxin, Metoprolol Shortness of breath Pneumonia -shortness of breath could certainly be due to rapid heart rate although the patient does have a coarse wheeze he does not appear to be in decompensated heart failure. Lasix was given on admission although withhold this. Unable to view diaphragms on chest x-ray although he does have evidence of hyperinflated lung volumes. Start ipratropium nebs q.6 hours scheduled. -troponin negative x3 -COVID flu RSV PCR. If not anything else he could have a mild COPD exacerbation. He thinks his breathing is better although 01/08/24: Ceftriaxone, Doxycycline, Robitussin, incentive spirometry Tobacco abuse -counsele
[2024-01-08] MEDS: FUROSEMIDE INJ 40 MG/4 ML VIAL IV PUSH (17:52)
[2024-01-08] MEDS: guaiFENesin/DEXTROMETHORPHAN 10 ML UDC PO ×2 (17:53→23:52)
[2024-01-08] MEDS: DOXYCYCLINE 100 MG/NS 100 ML 100 MG/100 ML BAG IVPB (17:53)
[2024-01-09] VITALS (29 sets, daily range): BP systolic 92–121; BP diastolic 58–98; PULSE 90–145; RESP 15–24; TEMP 36.1–36.4; O2SAT 92–99
[2024-01-09] MEDS: IPRATROPIUM BR 0.02% INH SOLN 0.5 MG/2.5 ML VIAL INHALATION ×4 (01:22→21:12)
[2024-01-09 05:08] LABS: Basophils Percent Auto 0.2 % (0.2-1.2); Eosinophils Absolute Auto 0.1 K/mm3 (0-0.3); Eosinophils Percent Auto 0.9 % (0-4.4); Hematocrit 47.8 % (42.0-52.0); Hemoglobin 14.3 g/dL (14.0-18.0); Immature Granulocyte Absolute 0.03 K/mm3 (0.00-0.031); Immature Granulocyte Percent A 0.5 % (0-0.5); Immature Platelet Fraction Pct 5.5 % (0.9-11.2); Lymphocytes Absolute Auto 0.73 K/mm3 (0.9-3.2); Lymphocytes Percent Auto 11.1 % (18.3-44.2); Mean Corpuscular HGB Conc 29.9 g/dl (32-36); Mean Corpuscular Volume 93.5 fl (80-100); Mean Platelet Volume 11.4 fl (7.4-10.4); Monocytes Absolute Auto 0.6 K/mm3 (0.1-0.6); Monocytes Percent Auto 9.3 % (2.6-8.5); Neutrophils Absolute Auto 5.1 K/mm3 (1.3-6.7); Platelet Count Result 109 k/mm3 (150-375); Red Blood Count 5.11 M/mm3 (4.6-6.20); Red Cell Distribution Width 14.9 % (11.5-14.5); White Blood Count 6.6 K/mm3 (4.5-10.0)
[2024-01-09 05:28] LABS: Alanine Aminotransferase 29 U/L (6-50); Albumin Level 3.5 g/dL (3.5-5.1); Alkaline Phosphatase 80 U/L (38-126); Aspartate Amino Transferase 35 U/L (17-59); Blood Urea Nitrogen 32 mg/dL (9-20); Calcium 9.3 mg/dL (8.4-10.2); Carbon Dioxide > 40 mmol/L (22-30); Chloride 102 mmol/L (98-107); Estimated CRCL calculation 78 ml/min; Estimated Glomerular Filt Rate > 60; Glucose 102 mg/dL (65-110); Potassium 4.1 mmol/L (3.4-5.0); Sodium 141 mmol/L (137-145)
[2024-01-09 05:33] LABS: Platelet Estimate Slightly Decreased (Adequate)
[2024-01-09 05:34] LABS: Hypochromasia 1+; Large Platelets Present; Ovalocytes 1+; Schistocytes None Seen
[2024-01-09] MEDS: LEVOTHYROXINE SODIUM 125 MCG TABLET FEED TUBE (06:16)
[2024-01-09] MEDS: guaiFENesin/DEXTROMETHORPHAN 10 ML UDC PO ×3 (06:16→17:02)
[2024-01-09] MEDS: DIGOXIN 250 MCG TABLET PO (09:46)
[2024-01-09] MEDS: METOPROLOL TARTRATE TAB 25 MG, METOPROLOL TARTRATE TAB 50 MG 75 MG FEED TUBE ×2 (09:46→21:08)
[2024-01-09] MEDS: FUROSEMIDE INJ 40 MG/4 ML VIAL IV PUSH ×2 (09:47→17:02)
[2024-01-09] MEDS: APIXABAN 5 MG TABLET FEED TUBE ×2 (09:47→17:00)
[2024-01-09] MEDS: DOXYCYCLINE 100 MG/NS 100 ML 100 MG/100 ML BAG IVPB ×2 (09:49→21:16)
--- NOTE | 2024-01-09 11:22 | PM.PNCARD ---
Progress Note: A&P Assessment and Plan (1) Atrial fibrillation with rapid ventricular response: Code(s): I48.91 - Unspecified atrial fibrillation Status: Acute Plan 83-year-old man with chronic/permanent atrial fibrillation now with RVR despite higher doses of metoprolol. As stated previously he did not do well with adding diltiazem as this only precipitated hypotension and did not provide really much in the way of rate control. He has received a total of 1 mg of digoxin in the last 48 hours and still has not demonstrated any significant heart rate control benefit. I believe I am going to stop the digoxin and start amiodarone in addition to the beta-peyton to try to provide better rate control. Discuss this also with his son who is in the room. The son is asking in terms of heart rate that would allow his father to be discharged. I told the son that I would like heart rates at least down to the 100-110 range before we discuss dismissing him from the hospital. Obviously despite his advanced age his AV node still allows RVR. Galindo Tariq MD [facility] Subjective Date/time seen: Date of service: 01/09/24 11:22 Interval history: Follow-up visit in this 83-year-old man with: Chronic atrial fib/flutter as detailed in consult note yesterday. Patient is admitted with shortness of breath and mucus/airway congestion. He also has increased ventricular response to his atrial fib. Heart rate has previously been well controlled on a lower dose of metoprolol. He is otherwise asymptomatic of his AFib. Continues to have heart rate of 120-130 for the most part. He was briefly well controlled yesterday afternoon after his 1st dose of digoxin. Date of service 01/09/2024: Patient is resting comfortably in visiting with his son. Breathing more comfortably today although he is still persistently tachycardic heart rate generally between 120-140 Exam Const: Other: Elderly man wearing face mask oxygen resting comfortably HENMT: Mouth: Yes moist mucous membranes Eyes: Sclera: sclerae normal Neck: Neck: supple Resp: Other: Coarse breath sounds, large airway rhonchi Cardio: Rate: tachycardic Rhythm: abnormal rhythm irregularly irregular GI: Auscultation: normal bowel sounds Urinary Catheter: Urinary Catheter: patent and draining Skin: General skin exam: normal color Neuro: Other: Alert and oriented Extrem: General: normal to inspection Other: No edema, good perfusion Objective Data Vital Signs Vital Signs: Vital Signs - 24 hr 01/08/24 11:55 01/08/24 13:33 01/08/24 13:48 Temperature 37.1 C Pulse Rate 126 H 140 H 142 H Respiratory Rate 20 24 H 22 H Blood Pressure 118/68 Pulse Oximetry 96 Oxygen Delivery Oxygen Flow Rate 01/08/24 12:00 01/08/24 14:00 01/08/24 15:51 Temperature 37.4 C Pulse Rate 120 H 144 H 125 H Respiratory Rate 24 H Blood Pressure 139/100 H Pulse Oximetry 95 Oxygen Delivery Oxygen Flow Rate 01/08/24 16:00 01/08/24 12:00 01/08/24 16:00 Temperature Pulse Rate 144 H Respiratory Rate Blood Pressure Pulse Oximetry 97 95 Oxygen Delivery Nasal Cannula Nasal Cannula Oxygen Flow Rate 2 2 01/08/24 18:00 01/08/24 20:00 01/08/24 20:51 Temperature 36.6 C Pulse Rate 138 H 116 H Respiratory Rate 22 H Blood Pressure 123/73 Pulse Oximetry 95 95 Oxygen Delivery Nasal Cannula Oxygen Flow Rate 2 01/08/24 20:53 01/08/24 21:04 01/08/24 21:32 Temperature Pulse Rate 115 H 123 H 148 H Respiratory Rate 22 H 22 H Blood Pressure Pulse Oximetry Oxygen Delivery Oxygen Flow Rate 01/09/24 00:00 01/08/24 20:00 01/08/24 22:00 Temperature 36.4 C Pulse Rate 110 H 134 H 140 H Respiratory Rate 20 Blood Pressure 112/73 Pulse Oximetry 97 Oxygen Delivery Oxygen Flow Rate 01/09/24 00:00 01/09/24 01:24 01/09/24 02:00 Temperature Pulse Rate 123 H 122 H 137 H Respir
[2024-01-09] MEDS: AMIODARONE HCL 200 MG TABLET PO ×2 (12:28→21:08)
--- NOTE | 2024-01-09 14:11 | PM.IMPN ---
Progress Note: A&P Assessment and Plan (1) Shortness of breath: Code(s): R06.02 - Shortness of breath Status: Acute Assessment and Plan: Acute, severe. Likely 2/2 Pneumonia, fluid overload Oxygen, Lasix, Doxycycline, Ceftriaxone (2) Atrial flutter: Code(s): I48.92 - Unspecified atrial flutter Status: Acute Assessment and Plan: Cardiology on board; on Digoxin, Metoprolol (3) Dysphagia causing pulmonary aspiration with swallowing: Code(s): R13.19 - Other dysphagia Status: Acute Assessment and Plan: s/p PEG tube, 2020 (4) Acute respiratory failure with hypoxia: Code(s): J96.01 - Acute respiratory failure with hypoxia Status: Acute Assessment and Plan: Oxygen, Lasix, Doxycycline, Ceftriaxone (5) Pneumonia: Qualifiers: Pneumonia type: due to unspecified organism Laterality: bilateral Lung location: unspecified part of lung Qualified Code(s): J18.9 - Pneumonia, unspecified organism Code(s): J18.9 - Pneumonia, unspecified organism Status: Acute Assessment and Plan: On Doxycycline, Ceftriaxone, IS, Robitussin (6) Fluid overload: Code(s): E87.70 - Fluid overload, unspecified Status: Acute Assessment and Plan: On Lasix; Monitor (7) Gurgling breath sounds: Code(s): R09.89 - Other specified symptoms and signs involving the circulatory and respiratory systems Status: Acute Assessment and Plan: On Sopalamine patch (8) Oral cancer: Onset Date: ~2002 Code(s): C06.9 - Malignant neoplasm of mouth, unspecified Status: Acute Plan 83-year-old male with a past medical history atrial flutter on Eliquis, did tobacco abuse, history of oral cancer status post G-tube, hypothyroidism, history of squamous cell carcinoma of the lung, anxiety presents with complaints of chest pain or shortness of breath worse on exertion. He feels that his heart rate has been acting up for the last couple of months and sometimes pain radiates into his abdomen. In the emergency department the patient was given Lasix due to chest x-ray being read as pulmonary edema versus chronic interstitial lung disease. Given IV Cardizem 10 mg x 1 and subsequently placed on Cardizem drip 5 milligrams/hour. Admitted on 01/03 A flutter with RVR -attempted to transition him to metoprolol at an increased dose from his home dose however was unsuccessful. Placed back on diltiazem drip at 5 milligrams/hour. Start diltiazem p.o. 30 mg q.6 hours. Instructed nurse to DC the Dilt drip if his heart rate remains under 110. -continue Eliquis 5 mg feeding tube b.i.d. -TSH elevated. T4 1.6 Cardiology: With advancement in his metoprolol dosage and adding diltiazem his rate control has not improved that much and he is now somewhat hypotensive.? At this point for that reason I will abandon his diltiazem, keep him on metoprolol and I will add some digoxin to his regimen.? His renal function is normal so it should be reasonably safe to use digoxin in this setting.? I will give him a 0.5 mg through his G-tube at this time soon then start a maintenance dose as of tomorrow morning and we will follow his telemetry with you.? There is obviously no role in maintaining rhythm since this patient has been in AFib/flutter for several years and restoring sinus rhythm is no longer an option.? 01/08/24: Still tachycardic, on Digoxin, Metoprolol 01/09/24: Still tachycardic; on Digoxin Shortness of breath Pneumonia -shortness of breath could certainly be due to rapid heart rate although the patient does have a coarse wheeze he does not appear to be in decompensated heart failure. Lasix was given on admission although withhold this. Unable to view diaphragms on chest x-ray although he does have evidence of hyperinflated lung volumes. Start ipratropium nebs q.6 hours scheduled. -troponin negative x3 -COVID flu RSV PCR. If not anything else he could
[2024-01-09] MEDS: MELATONIN 5 MG TABLET PO (21:08)
[2024-01-10] VITALS (30 sets, daily range): BP systolic 93–130; BP diastolic 54–82; PULSE 56–134; RESP 18–22; TEMP 36.1–36.6; O2SAT 94–100
[2024-01-10] MEDS: guaiFENesin/DEXTROMETHORPHAN 10 ML UDC PO ×4 (00:33→18:54)
[2024-01-10 03:41] LABS: Basophils Percent Auto 0.5 % (0.2-1.2); Eosinophils Absolute Auto 0.2 K/mm3 (0-0.3); Eosinophils Percent Auto 3.1 % (0-4.4); Hematocrit 47.5 % (42.0-52.0); Hemoglobin 14.2 g/dL (14.0-18.0); Immature Granulocyte Absolute 0.02 K/mm3 (0.00-0.031); Immature Granulocyte Percent A 0.3 % (0-0.5); Immature Platelet Fraction Pct 4.8 % (0.9-11.2); Lymphocytes Absolute Auto 0.59 K/mm3 (0.9-3.2); Lymphocytes Percent Auto 10.2 % (18.3-44.2); Mean Corpuscular HGB Conc 29.9 g/dl (32-36); Mean Corpuscular Volume 93.5 fl (80-100); Mean Platelet Volume 11.1 fl (7.4-10.4); Monocytes Absolute Auto 0.5 K/mm3 (0.1-0.6); Monocytes Percent Auto 9.3 % (2.6-8.5); Neutrophils Absolute Auto 4.4 K/mm3 (1.3-6.7); Neutrophils Percent Auto 76.6 % (45.5-73.1); Platelet Count Result 123 k/mm3 (150-375); Red Blood Count 5.08 M/mm3 (4.6-6.20); Red Cell Distribution Width 14.7 % (11.5-14.5); White Blood Count 5.8 K/mm3 (4.5-10.0)
[2024-01-10 03:56] LABS: Alanine Aminotransferase 28 U/L (6-50); Albumin Level 3.2 g/dL (3.5-5.1); Alkaline Phosphatase 81 U/L (38-126); Anion Gap 2 mmol/L (8-16); Aspartate Amino Transferase 32 U/L (17-59); Bilirubin,Total 1.3 mg/dL (0.2-1.3); Blood Urea Nitrogen 40 mg/dL (9-20); Calcium 9.3 mg/dL (8.4-10.2); Carbon Dioxide 37 mmol/L (22-30); Chloride 101 mmol/L (98-107); Estimated CRCL calculation 78 ml/min; Estimated Glomerular Filt Rate > 60; Glucose 133 mg/dL (65-110); Potassium 3.5 mmol/L (3.4-5.0); Sodium 140 mmol/L (137-145)
[2024-01-10] MEDS: AMIODARONE HCL 200 MG TABLET PO ×3 (06:46→21:06)
[2024-01-10] MEDS: LEVOTHYROXINE SODIUM 125 MCG TABLET FEED TUBE (06:46)
[2024-01-10] MEDS: IPRATROPIUM BR 0.02% INH SOLN 0.5 MG/2.5 ML VIAL INHALATION ×3 (07:27→19:25)
[2024-01-10] MEDS: SCOPOLAMINE 1 MG PATCH 1 PATCH TRANSDERM (10:09)
[2024-01-10] MEDS: METOPROLOL TARTRATE TAB 25 MG, METOPROLOL TARTRATE TAB 50 MG 75 MG FEED TUBE (10:09)
[2024-01-10] MEDS: FUROSEMIDE INJ 40 MG/4 ML VIAL IV PUSH ×2 (10:09→18:54)
[2024-01-10] MEDS: APIXABAN 5 MG TABLET FEED TUBE ×2 (10:09→18:54)
[2024-01-10] MEDS: DOXYCYCLINE 100 MG/NS 100 ML 100 MG/100 ML BAG IVPB ×2 (10:10→21:41)
--- NOTE | 2024-01-10 10:30 | PM.PNCARD ---
Progress Note: A&P Assessment and Plan (1) Atrial fibrillation with rapid ventricular response: Code(s): I48.91 - Unspecified atrial fibrillation Status: Acute Assessment and Plan: 83-year-old man with chronic/permanent atrial fibrillation now with RVR despite higher doses of metoprolol Hypotension with addition of diltiazem No improvement of heart rate with digoxin Amiodarone has been added and will increase metoprolol today as well and hope his blood pressure tolerates this May be several days before we see an improvement in heart rate He is asymptomatic Long discussion with patient and daughter at the beside regarding the plan Continue to monitor on telemetry Goal HR for discharge 100-110 Subjective Date/time seen: 01/10/24 10:31 Interval history: Follow-up visit in this 83-year-old man with: Chronic atrial fib/flutter as detailed in consult note yesterday. Patient is admitted with shortness of breath and mucus/airway congestion. He also has increased ventricular response to his atrial fib. Heart rate has previously been well controlled on a lower dose of metoprolol. He is otherwise asymptomatic of his AFib. Continues to have heart rate of 120-130 for the most part. He was briefly well controlled yesterday afternoon after his 1st dose of digoxin. Date of service 01/09/2024: Patient is resting comfortably in visiting with his son. Breathing more comfortably today although he is still persistently tachycardic heart rate generally between 120-140 Date of service 01/10/2024: Remain in atrial fibrillation with elevated heart rate despite addition of amiodarone over the weekend. Heart rate generally 120-140. Review of Systems Constitutional: Constitutional: Reports lethargy Eyes: Eyes: Reports no additional eye complaints ENT: Reports system reviewed and no additional complaints, except as documented Cardiovascular: Cardiovascular: Reports palpitations Respiratory: Respiratory: Reports cough Gastrointestinal: Gastrointestinal: Reports no additional gastrointestinal complaints Musculoskeletal: Musculoskeletal: Reports no additional musculoskeletal complaints Integumentary/Breasts: Skin/Breast: Reports system reviewed and no additional complaints, except as docu Neurologic: Reports system reviewed and no additional complaints, except as documented Endocrine: Endocrine: Reports no additional endocrine complaints and Reports palpitations Hematologic/Lymphatic: Hematologic/Lymphatic: Reports no additional hematologic/lymphatic complaints Allergic/Immunologic: Allergic/Immunologic: Reports no additional allergic/immunologic complaints Exam Const: Other: Elderly man wearing face mask oxygen resting comfortably HENMT: Mouth: Yes moist mucous membranes Eyes: Sclera: sclerae normal Neck: Neck: supple Resp: Other: Coarse breath sounds, large airway rhonchi Cardio: Rate: tachycardic Rhythm: abnormal rhythm irregularly irregular Heart sounds: no murmurs GI: Auscultation: normal bowel sounds Urinary Catheter: Urinary Catheter: patent and draining Skin: General skin exam: normal color Neuro: Other: Alert and oriented Extrem: General: normal to inspection Other: No edema, good perfusion Objective Data Vital Signs Vital Signs: Vital Signs - 24 hr 01/09/24 12:28 01/09/24 12:00 01/09/24 12:00 Temperature Pulse Rate 137 H 130 H Respiratory Rate Blood Pressure Pulse Oximetry 96 Oxygen Delivery Nasal Cannula Oxygen Flow Rate 2 01/09/24 12:00 01/09/24 13:32 01/09/24 13:38 Temperature 36.1 C L Pulse Rate 106 H 127 H 106 H Respiratory Rate 20 18 Blood Pressure 108/80 Pulse Oximetry 96 Oxygen Delivery Oxygen Flow Rate 01/09/24 14:00 01/09/24 16:00 01/09/24 16:00 Temperature 36.2 C L Pulse Rate 113 H 92 115 H Respiratory Rate 24 H Blood Pressure 102/58 L Pulse Oximetry 96 Oxygen Delivery O
--- NOTE | 2024-01-10 12:09 | PM.IMPN ---
Progress Note: A&P Assessment and Plan (1) Shortness of breath: Code(s): R06.02 - Shortness of breath Status: Acute Assessment and Plan: Acute, severe. Likely 2/2 Pneumonia, fluid overload Oxygen, Lasix, Doxycycline, Ceftriaxone (2) Atrial flutter: Code(s): I48.92 - Unspecified atrial flutter Status: Acute Assessment and Plan: Cardiology on board; on Amiodarone (3) Dysphagia causing pulmonary aspiration with swallowing: Code(s): R13.19 - Other dysphagia Status: Acute Assessment and Plan: s/p PEG tube, 2020 (4) Acute respiratory failure with hypoxia: Code(s): J96.01 - Acute respiratory failure with hypoxia Status: Acute Assessment and Plan: Oxygen, Lasix, Doxycycline, Ceftriaxone (5) Pneumonia: Qualifiers: Pneumonia type: due to unspecified organism Laterality: bilateral Lung location: unspecified part of lung Qualified Code(s): J18.9 - Pneumonia, unspecified organism Code(s): J18.9 - Pneumonia, unspecified organism Status: Acute Assessment and Plan: On Doxycycline, Ceftriaxone, IS, Robitussin (6) Fluid overload: Code(s): E87.70 - Fluid overload, unspecified Status: Acute Assessment and Plan: On Lasix; Monitor (7) Gurgling breath sounds: Code(s): R09.89 - Other specified symptoms and signs involving the circulatory and respiratory systems Status: Acute Assessment and Plan: On Sopalamine patch (8) Oral cancer: Onset Date: ~2002 Code(s): C06.9 - Malignant neoplasm of mouth, unspecified Status: Acute Assessment and Plan: Remote Hx, s/p surgery Plan 83-year-old male with a past medical history atrial flutter on Eliquis, did tobacco abuse, history of oral cancer status post G-tube, hypothyroidism, history of squamous cell carcinoma of the lung, anxiety presents with complaints of chest pain or shortness of breath worse on exertion. He feels that his heart rate has been acting up for the last couple of months and sometimes pain radiates into his abdomen. In the emergency department the patient was given Lasix due to chest x-ray being read as pulmonary edema versus chronic interstitial lung disease. Given IV Cardizem 10 mg x 1 and subsequently placed on Cardizem drip 5 milligrams/hour. Admitted on 03/12 A flutter with RVR -attempted to transition him to metoprolol at an increased dose from his home dose however was unsuccessful. Placed back on diltiazem drip at 5 milligrams/hour. Start diltiazem p.o. 30 mg q.6 hours. Instructed nurse to DC the Dilt drip if his heart rate remains under 110. -continue Eliquis 5 mg feeding tube b.i.d. -TSH elevated. T4 1.6 Cardiology: With advancement in his metoprolol dosage and adding diltiazem his rate control has not improved that much and he is now somewhat hypotensive.? At this point for that reason I will abandon his diltiazem, keep him on metoprolol and I will add some digoxin to his regimen.? His renal function is normal so it should be reasonably safe to use digoxin in this setting.? I will give him a 0.5 mg through his G-tube at this time soon then start a maintenance dose as of tomorrow morning and we will follow his telemetry with you.? There is obviously no role in maintaining rhythm since this patient has been in AFib/flutter for several years and restoring sinus rhythm is no longer an option.? 01/08/24: Still tachycardic, on Digoxin, Metoprolol 01/09/24: Still tachycardic; on Amiodarone 01/10/24: Tachycardic; on Amiodarone, Metoprolol and Eliquis Shortness of breath Pneumonia -shortness of breath could certainly be due to rapid heart rate although the patient does have a coarse wheeze he does not appear to be in decompensated heart failure. Lasix was given on admission although withhold this. Unable to view diaphragms on chest x-ray although he does have evidence of hyperinflated lung volumes. Start ipra
[2024-01-10] MEDS: METOPROLOL TARTRATE 50 MG TAB 100 MG FEED TUBE (21:07)
[2024-01-10] MEDS: MELATONIN 5 MG TABLET PO (21:07)
[2024-01-11] VITALS (27 sets, daily range): BP systolic 90–119; BP diastolic 59–78; PULSE 61–127; RESP 16–22; TEMP 36.1–36.5; O2SAT 86–98
--- NOTE | 2024-01-11 00:01 | PC.NURSE ---
patient unable to do incentive spirometer d/t oral disfiguration/ past surgeries. Also states he would not be able to do a flutter valve.
[2024-01-11] MEDS: IPRATROPIUM BR 0.02% INH SOLN 0.5 MG/2.5 ML VIAL INHALATION ×4 (02:52→20:31)
[2024-01-11 05:10] LABS: Basophils Percent Auto 0.4 % (0.2-1.2); Eosinophils Absolute Auto 0.1 K/mm3 (0-0.3); Eosinophils Percent Auto 2.5 % (0-4.4); Hematocrit 50.7 % (42.0-52.0); Hemoglobin 14.9 g/dL (14.0-18.0); Immature Granulocyte Absolute 0.02 K/mm3 (0.00-0.031); Immature Granulocyte Percent A 0.4 % (0-0.5); Lymphocytes Absolute Auto 0.65 K/mm3 (0.9-3.2); Lymphocytes Percent Auto 12.6 % (18.3-44.2); Mean Corpuscular HGB Conc 29.4 g/dl (32-36); Mean Corpuscular Hemoglobin 27.9 pg (26-34); Mean Corpuscular Volume 94.9 fl (80-100); Mean Platelet Volume 10.8 fl (7.4-10.4); Monocytes Absolute Auto 0.5 K/mm3 (0.1-0.6); Monocytes Percent Auto 9.9 % (2.6-8.5); Neutrophils Absolute Auto 3.8 K/mm3 (1.3-6.7); Neutrophils Percent Auto 74.2 % (45.5-73.1); Platelet Count Result 147 k/mm3 (150-375); Red Blood Count 5.34 M/mm3 (4.6-6.20); Red Cell Distribution Width 14.6 % (11.5-14.5); White Blood Count 5.2 K/mm3 (4.5-10.0)
[2024-01-11 05:24] LABS: Alanine Aminotransferase 28 U/L (6-50); Albumin Level 3.3 g/dL (3.5-5.1); Alkaline Phosphatase 80 U/L (38-126); Aspartate Amino Transferase 27 U/L (17-59); Bilirubin,Total 1.2 mg/dL (0.2-1.3); Blood Urea Nitrogen 35 mg/dL (9-20); Calcium 9.2 mg/dL (8.4-10.2); Carbon Dioxide > 40 mmol/L (22-30); Chloride 100 mmol/L (98-107); Estimated CRCL calculation 69 ml/min; Estimated Glomerular Filt Rate > 60; Glucose 115 mg/dL (65-110); Potassium 3.7 mmol/L (3.4-5.0); Sodium 142 mmol/L (137-145)
[2024-01-11] MEDS: LEVOTHYROXINE SODIUM 125 MCG TABLET FEED TUBE (06:20)
[2024-01-11] MEDS: AMIODARONE HCL 200 MG TABLET PO ×2 (06:21→13:35)
[2024-01-11] MEDS: guaiFENesin/DEXTROMETHORPHAN 10 ML UDC PO ×3 (06:21→17:54)
[2024-01-11] MEDS: FUROSEMIDE INJ 40 MG/4 ML VIAL IV PUSH ×2 (08:59→17:54)
[2024-01-11] MEDS: METOPROLOL TARTRATE 50 MG TAB 100 MG FEED TUBE ×2 (08:59→21:50)
[2024-01-11] MEDS: DOXYCYCLINE 100 MG/NS 100 ML 100 MG/100 ML BAG IVPB (08:59)
[2024-01-11] MEDS: APIXABAN 5 MG TABLET FEED TUBE ×2 (08:59→17:54)
--- NOTE | 2024-01-11 11:09 | PM.PNCARD ---
Progress Note: A&P Assessment and Plan (1) Atrial fibrillation with rapid ventricular response: Code(s): I48.91 - Unspecified atrial fibrillation Status: Acute Assessment and Plan: 83-year-old man with chronic/permanent atrial fibrillation with persistent RVR despite higher doses of metoprolol Hypotension with addition of diltiazem No improvement of heart rate with digoxin Amiodarone has been added and HR is significantly improved today Continue metoprolol 100mg b.i.d. He is asymptomatic Continue to monitor on telemetry Since his heart rate is well controlled at this point he would be stable for discharge from a cardiac standpoint. Will decrease amiodarone to 200mg daily. He should follow up with his established slot floor person at [facility] will sign off at this point. Please call with questions. Subjective Date/time seen: 01/11/24 11:09 Interval history: Follow-up visit in this 83-year-old man with: Chronic atrial fib/flutter as detailed in consult note yesterday. Patient is admitted with shortness of breath and mucus/airway congestion. He also has increased ventricular response to his atrial fib. Heart rate has previously been well controlled on a lower dose of metoprolol. He is otherwise asymptomatic of his AFib. Continues to have heart rate of 120-130 for the most part. He was briefly well controlled yesterday afternoon after his 1st dose of digoxin. Date of service 01/09/2024: Patient is resting comfortably in visiting with his son. Breathing more comfortably today although he is still persistently tachycardic heart rate generally between 120-140 Date of service 01/10/2024: Remain in atrial fibrillation with elevated heart rate despite addition of amiodarone over the weekend. Heart rate generally 120-140. Date of service 01/11/2024: Heart rate much better controlled today, generally 80's-90's. He has no cardiovascular complaints today. Review of Systems Constitutional: Constitutional: Reports lethargy Eyes: Eyes: Reports no additional eye complaints ENT: Reports system reviewed and no additional complaints, except as documented Cardiovascular: Cardiovascular: Reports palpitations Respiratory: Respiratory: Reports cough Gastrointestinal: Gastrointestinal: Reports no additional gastrointestinal complaints Musculoskeletal: Musculoskeletal: Reports no additional musculoskeletal complaints Integumentary/Breasts: Skin/Breast: Reports system reviewed and no additional complaints, except as docu Neurologic: Reports system reviewed and no additional complaints, except as documented Endocrine: Endocrine: Reports no additional endocrine complaints and Reports palpitations Hematologic/Lymphatic: Hematologic/Lymphatic: Reports no additional hematologic/lymphatic complaints Allergic/Immunologic: Allergic/Immunologic: Reports no additional allergic/immunologic complaints Exam Const: Other: Elderly man wearing face mask oxygen resting comfortably HENMT: Mouth: Yes moist mucous membranes Eyes: Sclera: sclerae normal Neck: Neck: supple Resp: Other: Coarse breath sounds, large airway rhonchi Cardio: Rate: regular rate Rhythm: abnormal rhythm irregularly irregular Heart sounds: no murmurs GI: Auscultation: normal bowel sounds Urinary Catheter: Urinary Catheter: patent and draining Skin: General skin exam: normal color Neuro: Other: Alert and oriented Extrem: General: normal to inspection Other: No edema, good perfusion Objective Data Vital Signs Vital Signs: Vital Signs - 24 hr 01/10/24 12:00 01/10/24 12:00 01/10/24 13:16 Temperature 36.1 C L Pulse Rate 129 H 76 123 H Respiratory Rate 18 Blood Pressure 98/67 L Pulse Oximetry 100 Oxygen Delivery Oxygen Flow Rate 01/10/24 14:30 01/10/24 14:36 01/10/24 12:00 Temperature Pulse Rate 103 H 125 H Respiratory Rate 20 20 Blood Pressure Pulse Oximetry
--- NOTE | 2024-01-11 11:35 | PCNFU ---
Nutrition Follow-Up Complete: Inadequate energy intake related to NPO, tube feeding regimen as evidenced by patient report of feedings at home Goal:Meet estimated protein energy needs Pt is meeting goal. Continue with same goal. Pt current nutrition is Tube feeding: Jevity 1.5 Bolus: 480ml TID, 300ml flush TID. Nutrition recommendation: continue with current plan of care Last recorded weight is 78.7 kg. Bowel Motility: +BM 01/09 Labs Reviewed: Alb:3.3, BUN:35 Meds Noted: eliquis, lasix Skin: no skin issues noted Additional Notes: Pt continues on same tube feeding regimen. This is providing 2130kcals, 91g protein, 1980ml free water. Tolerating well overall. Agree with diet orders. Monitor tube feeding tolerance, labs, weights, stool patterns, plan of care Follow up Tuesdays and Fridays per policy
--- NOTE | 2024-01-11 13:45 | PM.IMPN ---
Progress Note: A&P Assessment and Plan (1) Shortness of breath: Code(s): R06.02 - Shortness of breath Status: Acute Assessment and Plan: Acute, severe. Likely 2/2 Pneumonia, fluid overload Oxygen, Lasix, Doxycycline, Ceftriaxone 01/11/24: Improved; on supplemental oxygen (2) Atrial flutter: Code(s): I48.92 - Unspecified atrial flutter Status: Acute Assessment and Plan: Cardiology on board; on Amiodarone (3) Dysphagia causing pulmonary aspiration with swallowing: Code(s): R13.19 - Other dysphagia Status: Acute Assessment and Plan: s/p PEG tube, 2020 (4) Acute respiratory failure with hypoxia: Code(s): J96.01 - Acute respiratory failure with hypoxia Status: Acute Assessment and Plan: Oxygen, Lasix, Doxycycline, Ceftriaxone (5) Pneumonia: Qualifiers: Pneumonia type: due to unspecified organism Laterality: bilateral Lung location: unspecified part of lung Qualified Code(s): J18.9 - Pneumonia, unspecified organism Code(s): J18.9 - Pneumonia, unspecified organism Status: Acute Assessment and Plan: On Doxycycline, Ceftriaxone, IS, Robitussin (6) Fluid overload: Code(s): E87.70 - Fluid overload, unspecified Status: Acute Assessment and Plan: On Lasix; Monitor (7) Gurgling breath sounds: Code(s): R09.89 - Other specified symptoms and signs involving the circulatory and respiratory systems Status: Acute Assessment and Plan: On Scopalamine patch (8) Oral cancer: Onset Date: ~2002 Code(s): C06.9 - Malignant neoplasm of mouth, unspecified Status: Acute Assessment and Plan: Remote Hx, s/p surgery PEG tube in place for dysphagia Plan 83-year-old male with a past medical history atrial flutter on Eliquis, did tobacco abuse, history of oral cancer status post G-tube, hypothyroidism, history of squamous cell carcinoma of the lung, anxiety presents with complaints of chest pain or shortness of breath worse on exertion. He feels that his heart rate has been acting up for the last couple of months and sometimes pain radiates into his abdomen. In the emergency department the patient was given Lasix due to chest x-ray being read as pulmonary edema versus chronic interstitial lung disease. Given IV Cardizem 10 mg x 1 and subsequently placed on Cardizem drip 5 milligrams/hour. Admitted on 01/03 A flutter with RVR -attempted to transition him to metoprolol at an increased dose from his home dose however was unsuccessful. Placed back on diltiazem drip at 5 milligrams/hour. Start diltiazem p.o. 30 mg q.6 hours. Instructed nurse to DC the Dilt drip if his heart rate remains under 110. -continue Eliquis 5 mg feeding tube b.i.d. -TSH elevated. T4 1.6 Cardiology: With advancement in his metoprolol dosage and adding diltiazem his rate control has not improved that much and he is now somewhat hypotensive.? At this point for that reason I will abandon his diltiazem, keep him on metoprolol and I will add some digoxin to his regimen.? His renal function is normal so it should be reasonably safe to use digoxin in this setting.? I will give him a 0.5 mg through his G-tube at this time soon then start a maintenance dose as of tomorrow morning and we will follow his telemetry with you.? There is obviously no role in maintaining rhythm since this patient has been in AFib/flutter for several years and restoring sinus rhythm is no longer an option.? 01/08/24: Still tachycardic, on Digoxin, Metoprolol 01/09/24: Still tachycardic; on Amiodarone 01/10/24: Tachycardic; on Amiodarone, Metoprolol and Eliquis 01/11/24: On Amiodarone and Metoprolol; s/p Digoxin and Cardizem. Per Cardiology: Chronic/permanent atrial fibrillation now with RVR despite higher doses of metoprolol Hypotension with addition of diltiazem No improvement of heart rate with digoxin Amiodarone has been added and will incr
[2024-01-11] MEDS: AMOXICILLIN/CLAVULANATE K 875-125 MG TAB 1 TABLET PO (17:54)
[2024-01-11] MEDS: DOXYCYCLINE HYCLATE 100 MG TABLET PO (21:51)
[2024-01-12] VITALS (27 sets, daily range): BP systolic 88–119; BP diastolic 52–81; PULSE 70–117; RESP 12–20; TEMP 36.3–36.8; O2SAT 92–96
[2024-01-12] MEDS: guaiFENesin/DEXTROMETHORPHAN 10 ML UDC PO ×4 (01:05→18:47)
[2024-01-12] MEDS: IPRATROPIUM BR 0.02% INH SOLN 0.5 MG/2.5 ML VIAL INHALATION ×4 (01:40→20:31)
[2024-01-12 05:09] LABS: Basophils Percent Auto 0.3 % (0.2-1.2); Eosinophils Absolute Auto 0.2 K/mm3 (0-0.3); Eosinophils Percent Auto 2.5 % (0-4.4); Hemoglobin 15.2 g/dL (14.0-18.0); Immature Granulocyte Absolute 0.02 K/mm3 (0.00-0.031); Immature Granulocyte Percent A 0.3 % (0-0.5); Lymphocytes Percent Auto 13.4 % (18.3-44.2); Mean Corpuscular HGB Conc 29.8 g/dl (32-36); Mean Corpuscular Hemoglobin 27.9 pg (26-34); Mean Corpuscular Volume 93.6 fl (80-100); Mean Platelet Volume 10.8 fl (7.4-10.4); Monocytes Absolute Auto 0.6 K/mm3 (0.1-0.6); Monocytes Percent Auto 10.2 % (2.6-8.5); Neutrophils Absolute Auto 4.4 K/mm3 (1.3-6.7); Neutrophils Percent Auto 73.3 % (45.5-73.1); Platelet Count Result 148 k/mm3 (150-375); Red Blood Count 5.45 M/mm3 (4.6-6.20); Red Cell Distribution Width 14.7 % (11.5-14.5)
[2024-01-12 05:36] LABS: Platelet Estimate Adequate (Adequate)
[2024-01-12 05:37] LABS: Hypochromasia 1+; Ovalocytes 1+; Schistocytes None Seen
[2024-01-12 05:38] LABS: Alanine Aminotransferase 25 U/L (6-50); Albumin Level 3.4 g/dL (3.5-5.1); Alkaline Phosphatase 82 U/L (38-126); Aspartate Amino Transferase 27 U/L (17-59); Bilirubin,Total 1.1 mg/dL (0.2-1.3); Blood Urea Nitrogen 39 mg/dL (9-20); Calcium 9.3 mg/dL (8.4-10.2); Carbon Dioxide > 40 mmol/L (22-30); Chloride 98 mmol/L (98-107); Estimated CRCL calculation 69 ml/min; Estimated Glomerular Filt Rate > 60; Glucose 100 mg/dL (65-110); Potassium 3.7 mmol/L (3.4-5.0); Sodium 142 mmol/L (137-145)
[2024-01-12] MEDS: LEVOTHYROXINE SODIUM 125 MCG TABLET FEED TUBE (06:20)
[2024-01-12] MEDS: METOPROLOL TARTRATE 50 MG TAB 100 MG FEED TUBE ×2 (09:21→21:48)
[2024-01-12] MEDS: AMIODARONE HCL 200 MG TABLET PO (09:21)
[2024-01-12] MEDS: APIXABAN 5 MG TABLET FEED TUBE ×2 (09:22→18:31)
[2024-01-12] MEDS: AMOXICILLIN/CLAVULANATE K 875-125 MG TAB 1 TABLET PO ×2 (09:22→21:48)
[2024-01-12] MEDS: DOXYCYCLINE HYCLATE 100 MG TABLET PO ×2 (09:22→21:48)
--- NOTE | 2024-01-12 11:39 | P.CDI_ITS ---
CDI Query Clarification Request Based on the documentation in the medical record , this patient has been diagnosed with pneumonia. (5) Pneumonia: ?Qualifiers: ?Pneumonia type:?due to unspecified organism??Laterality:?bilateral??Lung location:?unspecified part of lung? Qualified Code(s):?J18.9 - Pneumonia, unspecified organism ?Code(s): J18.9 - Pneumonia, unspecified organism ?Status:?Acute ?Assessment and Plan: On Doxycycline, Ceftriaxone, IS, Robitussin Additional documentation in the medical record includes: Risk factors: History of oral cancer Noted in the documentation: Dysphagia and gurgling breath sounds. (3) Dysphagia causing pulmonary aspiration with swallowing: ?Code(s): R13.19 - Other dysphagia ?Status:?Acute ?Assessment and Plan: s/p PEG tube, 2019 (8) Oral cancer: ?Onset Date:?~2002 ?Code(s): C06.9 - Malignant neoplasm of mouth, unspecified ?Status:?Acute ?Assessment and Plan: Remote Hx, s/p surgery PEG tube in place for dysphagia Antibiotics: Doxycycline Hyclate 100 mg Q 12 hr. and Rocephin 1 gm Q 24 hr. Based on your medical judgement, can you further clarify, if known, in the progress notes whether the pneumonia is most likely or suspected to be related to any of the following: * Aspiration * Pseudomonas * MRSA * Pneumococcus * Viral * Gram Negative * Other specific organism * Other cause (please specify) * None of the above/ Not applicable <Zee Lomas RN - Last Filed: 01/12/24 11:54> Clarified Diagnosis Clarified Diagnosis: As per prescribing physician ... Dr. Cesar Parnell. <Estevan Morris MD - Last Filed: 01/12/24 14:40>
--- NOTE | 2024-01-12 18:08 | PM.IMPN ---
Progress Note: A&P Assessment and Plan (1) Shortness of breath: Code(s): R06.02 - Shortness of breath Status: Acute Assessment and Plan: Acute, severe. Likely 2/2 Pneumonia, fluid overload Oxygen, Lasix, Doxycycline, Ceftriaxone 01/11/24: Improved; on supplemental oxygen 01/12/2024: Weaned off oxygen as tolerated (2) Atrial flutter: Code(s): I48.92 - Unspecified atrial flutter Status: Acute Assessment and Plan: Cardiology on board; on Amiodarone Heart rate stable, SBP is around 100 Adjust meds to keep BP stable as per cardiology (3) Dysphagia causing pulmonary aspiration with swallowing: Code(s): R13.19 - Other dysphagia Status: Acute Assessment and Plan: s/p PEG tube, 2019 (4) Acute respiratory failure with hypoxia: Code(s): J96.01 - Acute respiratory failure with hypoxia Status: Acute Assessment and Plan: Oxygen, Lasix, Doxycycline, Ceftriaxone (5) Pneumonia: Qualifiers: Pneumonia type: due to unspecified organism Laterality: bilateral Lung location: unspecified part of lung Qualified Code(s): J18.9 - Pneumonia, unspecified organism Code(s): J18.9 - Pneumonia, unspecified organism Status: Acute Assessment and Plan: On Doxycycline, Ceftriaxone, IS, Robitussin (6) Fluid overload: Code(s): E87.70 - Fluid overload, unspecified Status: Acute Assessment and Plan: On Lasix; Monitor (7) Gurgling breath sounds: Code(s): R09.89 - Other specified symptoms and signs involving the circulatory and respiratory systems Status: Acute Assessment and Plan: On Scopalamine patch (8) Oral cancer: Onset Date: ~2002 Code(s): C06.9 - Malignant neoplasm of mouth, unspecified Status: Acute Assessment and Plan: Remote Hx, s/p surgery PEG tube in place for dysphagia Plan 83-year-old male with a past medical history atrial flutter on Eliquis, did tobacco abuse, history of oral cancer status post G-tube, hypothyroidism, history of squamous cell carcinoma of the lung, anxiety presents with complaints of chest pain or shortness of breath worse on exertion. He feels that his heart rate has been acting up for the last couple of months and sometimes pain radiates into his abdomen. In the emergency department the patient was given Lasix due to chest x-ray being read as pulmonary edema versus chronic interstitial lung disease. Given IV Cardizem 10 mg x 1 and subsequently placed on Cardizem drip 5 milligrams/hour. Admitted on 01/03 A flutter with RVR -attempted to transition him to metoprolol at an increased dose from his home dose however was unsuccessful. Placed back on diltiazem drip at 5 milligrams/hour. Start diltiazem p.o. 30 mg q.6 hours. Instructed nurse to DC the Dilt drip if his heart rate remains under 110. -continue Eliquis 5 mg feeding tube b.i.d. -TSH elevated. T4 1.6 Cardiology: With advancement in his metoprolol dosage and adding diltiazem his rate control has not improved that much and he is now somewhat hypotensive.? At this point for that reason I will abandon his diltiazem, keep him on metoprolol and I will add some digoxin to his regimen.? His renal function is normal so it should be reasonably safe to use digoxin in this setting.? I will give him a 0.5 mg through his G-tube at this time soon then start a maintenance dose as of tomorrow morning and we will follow his telemetry with you.? There is obviously no role in maintaining rhythm since this patient has been in AFib/flutter for several years and restoring sinus rhythm is no longer an option.? 01/08/24: Still tachycardic, on Digoxin, Metoprolol 01/09/24: Still tachycardic; on Amiodarone 01/10/24: Tachycardic; on Amiodarone, Metoprolol and Eliquis 01/11/24: On Amiodarone and Metoprolol; s/p Digoxin and Cardizem. 01/12/2024: Heart rate control. SBP around 100 to be monitored by cardiology Per Cardiology:
[2024-01-12] MEDS: FUROSEMIDE 40 MG TABLET PO (18:31)
[2024-01-13] VITALS (8 sets, daily range): BP systolic 91–168; BP diastolic 54–80; PULSE 80–112; RESP 12–18; TEMP 36–36.7; O2SAT 92–98
[2024-01-13] MEDS: guaiFENesin/DEXTROMETHORPHAN 10 ML UDC PO ×2 (00:06→05:40)
[2024-01-13 05:08] LABS: Basophils Percent Auto 0.4 % (0.2-1.2); Eosinophils Absolute Auto 0.2 K/mm3 (0-0.3); Eosinophils Percent Auto 3.3 % (0-4.4); Hematocrit 49.3 % (42.0-52.0); Hemoglobin 14.9 g/dL (14.0-18.0); Immature Granulocyte Absolute 0.02 K/mm3 (0.00-0.031); Immature Granulocyte Percent A 0.4 % (0-0.5); Lymphocytes Absolute Auto 0.83 K/mm3 (0.9-3.2); Lymphocytes Percent Auto 15.3 % (18.3-44.2); Mean Corpuscular HGB Conc 30.2 g/dl (32-36); Mean Corpuscular Hemoglobin 28.2 pg (26-34); Mean Corpuscular Volume 93.2 fl (80-100); Mean Platelet Volume 10.5 fl (7.4-10.4); Monocytes Absolute Auto 0.6 K/mm3 (0.1-0.6); Monocytes Percent Auto 10.5 % (2.6-8.5); Neutrophils Absolute Auto 3.8 K/mm3 (1.3-6.7); Neutrophils Percent Auto 70.1 % (45.5-73.1); Platelet Count Result 149 k/mm3 (150-375); Red Blood Count 5.29 M/mm3 (4.6-6.20); Red Cell Distribution Width 14.5 % (11.5-14.5); White Blood Count 5.4 K/mm3 (4.5-10.0)
[2024-01-13 05:21] LABS: Alanine Aminotransferase 25 U/L (6-50); Albumin Level 3.3 g/dL (3.5-5.1); Alkaline Phosphatase 77 U/L (38-126); Anion Gap -3 mmol/L (8-16); Aspartate Amino Transferase 31 U/L (17-59); Bilirubin,Total 1.1 mg/dL (0.2-1.3); Blood Urea Nitrogen 34 mg/dL (9-20); Calcium 9.2 mg/dL (8.4-10.2); Carbon Dioxide 39 mmol/L (22-30); Chloride 98 mmol/L (98-107); Estimated CRCL calculation 78 ml/min; Estimated Glomerular Filt Rate > 60; Glucose 92 mg/dL (65-110); Potassium 3.5 mmol/L (3.4-5.0); Sodium 134 mmol/L (137-145)
[2024-01-13] MEDS: LEVOTHYROXINE SODIUM 125 MCG TABLET FEED TUBE (05:40)
[2024-01-13] MEDS: IPRATROPIUM BR 0.02% INH SOLN 0.5 MG/2.5 ML VIAL INHALATION (08:41)
[2024-01-13] MEDS: DOXYCYCLINE HYCLATE 100 MG TABLET PO (09:35)
[2024-01-13] MEDS: METOPROLOL TARTRATE 50 MG TAB 100 MG FEED TUBE (09:35)
[2024-01-13] MEDS: APIXABAN 5 MG TABLET FEED TUBE (09:35)
[2024-01-13] MEDS: AMIODARONE HCL 200 MG TABLET PO (09:35)
[2024-01-13] MEDS: AMOXICILLIN/CLAVULANATE K 875-125 MG TAB 1 TABLET PO (09:35)
[2024-01-13] MEDS: SCOPOLAMINE 1 MG PATCH 1 PATCH TRANSDERM (09:36)
[2024-01-13] MEDS: FUROSEMIDE 40 MG TABLET PO (09:36)
--- NOTE | 2024-01-13 12:54 | PM.DS ---
DS: Admitting Diagnosis Discharge Date 01/13/24 Admitting Diagnosis Acute hypoxic respiratory failure Atrial flutter DS: Discharge Diagnosis Discharge Diagnosis (1) Atrial flutter: Code(s): I48.92 - Unspecified atrial flutter Status: Acute (2) Shortness of breath: Code(s): R06.02 - Shortness of breath Status: Acute (3) Acute respiratory failure with hypoxia: Code(s): J96.01 - Acute respiratory failure with hypoxia Status: Acute DS: Summary Hospital Course Reason for hospitalization: Acute hypoxic respiratory failure Hospital Course: 83-year-old male with a past medical history atrial flutter on Eliquis, did tobacco abuse, history of oral cancer status post G-tube, hypothyroidism, history of squamous cell carcinoma of the lung, anxiety presents with complaints of chest pain or shortness of breath worse on exertion.? He feels that his heart rate has been acting up for the last couple of months and sometimes pain radiates into his abdomen.? In the emergency department the patient was given Lasix due to chest x-ray being read as pulmonary edema versus chronic interstitial lung disease.? Given IV Cardizem 10 mg x 1 and subsequently placed on Cardizem drip 5 milligrams/hour.? Admitted on 01/03 A flutter with RVR -attempted to transition him to metoprolol at an increased dose from his home dose however was unsuccessful.? Placed back on diltiazem drip at 5 milligrams/hour.? Start diltiazem p.o. 30 mg q.6 hours.? Instructed nurse to DC the Dilt drip if his heart rate remains under 110. -continue Eliquis 5 mg feeding tube b.i.d. -TSH elevated.? T4 1.6 Cardiology: With advancement in his metoprolol dosage and adding diltiazem his rate control has not improved that much and he is now somewhat hypotensive.? At this point for that reason I will abandon his diltiazem, keep him on metoprolol and I will add some digoxin to his regimen.? His renal function is normal so it should be reasonably safe to use digoxin in this setting.? I will give him a 0.5 mg through his G-tube at this time soon then start a maintenance dose as of tomorrow morning and we will follow his telemetry with you.? There is obviously no role in maintaining rhythm since this patient has been in AFib/flutter for several years and restoring sinus rhythm is no longer an option.? 01/08/24: Still tachycardic, on Digoxin, Metoprolol 01/09/24: Still tachycardic; on Amiodarone 01/10/24: Tachycardic; on Amiodarone, Metoprolol and? Eliquis 01/11/24: On Amiodarone and Metoprolol; s/p Digoxin and Cardizem. 01/12/2024:? Heart rate control.? SBP around 100 to be monitored by cardiology Per Cardiology: Chronic/permanent atrial fibrillation now with RVR despite higher doses of metoprolol Hypotension with addition of diltiazem No improvement of heart rate with digoxin Amiodarone has been added and will increase metoprolol today as well and hope his blood pressure tolerates this May be several days before we see an improvement in heart rate He is asymptomatic Continue to monitor on telemetry Goal HR for discharge 100-110 Shortness of breath Pneumonia -shortness of breath could certainly be due to rapid heart rate although the patient does have a coarse wheeze he does not appear to be in decompensated heart failure.? Lasix was given on admission although withhold this.? Unable to view diaphragms on chest x-ray although he does have evidence of hyperinflated lung volumes.? Start ipratropium nebs q.6 hours scheduled. -troponin negative x3 -COVID flu RSV PCR.? If not anything else he could have a mild COPD exacerbation.? He thinks his breathing is better although 01/08/24: Ceftriaxone, Doxycycline, Robitussin, incentive spirometry 01/08-: Improved breathing Status at Discharge Overall status at discharge: patient is back to baseline Time Spent with Patient Time attestation: Total time spent providing and/or coordinating discharge services: Time spent: Rashad
--- NOTE | 2024-01-13 13:37 | PCRCNOTE ---
RT spoke to patient. Patient stated he is going home soon and doesn't feel he needs a breathing tx. RN aware.
--- NOTE | 2024-01-13 14:47 | PC.NURSE ---
01/13/24 14:26 Discharged home with family.
== END 2024-01-13 14:29 | disposition home or self-care (01) | DRG 193 ==
LOC: ANHED 18:52 → ANHIMU 22:09
PROVIDERS: General Practice; Internal Medicine; Admitting Provider Internal Medicine Infectious Disease; Emergency Provider Emergency Medicine; PCP Internal Medicine; Visit Provider Internal Medicine
DX: J18.9 Pneumonia, unspecified organism (principal); J96.01 Acute respiratory failure with hypoxia; I48.92 Unspecified atrial flutter; J44.0 Chronic obstructive pulmonary disease with (acute) lower respiratory infection; J44.1 Chronic obstructive pulmonary disease with (acute) exacerbation; I48.21 Permanent atrial fibrillation; E87.70 Fluid overload, unspecified; E03.9 Hypothyroidism, unspecified; F41.9 Anxiety disorder, unspecified; R13.19 Other dysphagia; F17.210 Nicotine dependence, cigarettes, uncomplicated; Z20.822 Contact with and (suspected) exposure to COVID-19; Z79.01 Long term (current) use of anticoagulants; Z85.819 Personal history of malignant neoplasm of unspecified site of lip, oral cavity, and pharynx; Z85.118 Personal history of other malignant neoplasm of bronchus and lung; Z90.5 Acquired absence of kidney; Z85.53 Personal history of malignant neoplasm of renal pelvis; Z93.1 Gastrostomy status
CPT/HCPCS: 36415; 71045; 80048; 80053; 83605; 83690; 83735; 83880; 84439; 84443; 84484; 85025; 85055; 85610; 85730; 87637; 93005; 94640; 96361; 96365; 96366; 96375; 96376; 99285; A9270; G0378; J0696; J1940; J7030; J7040

== ENCOUNTER 2024-03-13 17:26 | Observation (INO) | payer MEDICARE, SELFPAY ==
--- NOTE | ~2024-03-13 | CT_ITS ---
EXAMINATION: CT abdomen pelvis w con DATE: 03/13/2024 19:56 INDICATION: Abdominal distention TECHNIQUE: Computed tomography (CT) of the abdomen and pelvis was performed with 100 mL Omnipaque-350 intravenous contrast. Automated exposure control and iterative reconstruction technique were employe d. The dose-length product was 685.02 mGy-cm. COMPARISON: 06/04/2020 FINDINGS: Emphysema and chronic bronchiectatic changes at the bilateral lung bases. Unchanged volume loss and a telectasis in the left lower lobe. Mild cardiomegaly. No pericardial or pleural effusion. Percutaneou s gastrostomy tube bulb in the body the stomach. There are couple hemangiomas the right hepatic lobe with low-attenuation peripheral discontiguous puddling of contrast, the more cephalad measuring 1.6 c m in the more caudal measuring 2.4 cm.. The gallbladder, spleen, pancreas and bilateral adrenal gland s are normal. Bilateral low-attenuation renal cysts the largest on the left measuring 8.0 cm. In jason tion there are a few small indeterminate renal lesions with greater than simple fluid attenuation mos t likely proteinaceous/hemorrhagic cysts although differential would include solid neoplasm. Bilateral nonobstructing nephrolithiasis stones measuring up to 5 mm in the right kidney and 7 mm in the left kidney. Embolization coils along one of the branches of the right renal artery which supplie s anterior lower pole where there is some chronic cortical scarring. Bowels including the appendix ar e normal. Bladder is normal. No free intraperitoneal gas or fluid. No pathologically enlarged abdomin al or pelvic lymphadenopathy. There is calcified atherosclerosis of the aorta and many of the other a rteries. Moderate lower thoracic and severe lumbar spondylosis. IMPRESSION: 1. Bilateral nonobstructing nephrolithiasis. 2. Bilateral renal cysts with a few additional indeterminate renal lesions which could represent prot einaceous/hemorrhagic cysts or solid neoplasm including renal cell carcinoma and would recommend furt her evaluation with pre and postcontrast MRI or CT . Reviewed, dictated and finalized at location A. IMPRESSION: 1. Bilateral nonobstructing nephrolithiasis. 2. Bilateral renal cysts with a few additional indeterminate renal lesions whic h could represent proteinaceous/hemorrhagic cysts or solid neoplasm including r enal cell carcinoma and would recommend further evaluation with pre and postcon trast MRI or CT .
[2024-03-13 17:32] VITALS: BP 132/81; PULSE 110; RESP 18; TEMP 36.4; O2SAT 95
--- NOTE | 2024-03-13 17:37 | ED.GENADULT ---
HPI - General Adult General Chief complaint: Unspecified <Jeri Vasquez February, Last Filed: 03/13/24 17:41> Stated complaint: leaking around feeding tube <Jeri Vasquez February, Last Filed: 03/13/24 17:41> Time Seen by Provider: 03/13/24 17:37 <Jeri Vasquez February, - Last Filed: 03/13/24 17:41> Focused HPI: Hieu Silva is an 83 y/o male with PMhx of having a Gastric feeding tube for several years and has not had it replaced in a long time. He states that on Wednesday he suddenly had a large amount of flowing fluid come out around where the tube is in his abdomen. He states that he has had very minimal BMs in the last 3 weeks, he last had a feeding this morning at 1000 and states he has tolerated it just fine Denies pain GENERAL: Well-appearing, well-nourished, and in no acute distress. HEAD: Normocephalic, atraumatic. CHEST: Clear to auscultation. ?No respiratory distress. HEART: Regular rate and rhythm.? NEURO: ?Alert and oriented x3. Patient screened in triage and initial orders placed.? ?Additional care and disposition to be based upon?diagnostic testing and treatment. <Jeri Vasquez February, Last Filed: 03/13/24 17:41> Related Data Home medications: Home Medications Medication Instructions Recorded Confirmed levothyroxine 125 mcg tablet 125 mcg feeding tube DAILY 07/23/21 01/05/24 (Euthyrox) apixaban 5 mg tablet (Eliquis) 5 mg feeding tube BID 01/05/24 01/05/24 <Jeri Vasquez February, Last Filed: 03/13/24 17:41> Allergies/adverse reactions: Allergies Allergy/AdvReac Type Severity Reaction Status Date / Time No Known Allergies Allergy Mild Verified 03/13/24 19:36 <Jeri Vasquez February, Last Filed: 03/13/24 17:41> Review of Systems Review of Systems: CONSTITUTIONAL: Denies fever GASTROINTESTINAL: Denies abdominal pain, nausea, vomiting <Matilde Camacho PA-C - Last Filed: 03/13/24 23:05> All systems reviewed & are unremarkable except as noted in HPI and below <Matilde Camacho PA-C - Last Filed: 03/13/24 23:05> [facility] Past Medical History Medical History: Medical History (Updated 03/13/24 @ 23:01 by Cesar Peña MD) Anxiety Atrial flutter Patient has been in persistent atrial flutter as of 09/13/2020 secondary to mitral valve regurgitation related to anterior leaflet prolapse. Current use of fci anticoagulation Dysphagia causing pulmonary aspiration with swallowing Status post PEG tube insertion in December 2019. History of echocardiogram Echocardiogram in May 2014 showed vigorous contractility of the left ventricle with ejection fraction of 70%, mild anterior leaflet mitral valve prolapse with mild mitral regurgitation and mild left atrial enlargement. Left rib fracture Oral cancer (~2002) Squamous cell carcinoma of the tongue, treated at [facility] with radiation and resection of the left upper jaw. He had transferred his care to [facility] thereafter however as of May 2020 he was being treated with chemotherapy at [facility] due to recurrence. Paroxysmal atrial fibrillation Renal cell carcinoma (~2011) Status post right nephrectomy. 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 <Jeri Vasquez February, - Last Filed: 03/13/24 17:41> Surgical History Surgical History: Surgical History History of nephrectomy (~2011) Patient apparently had a large mass on his right kidney, reportedly renal cell carcinoma. History of oral surgery (~2002) Resection of left upper jaw malignancy. History of pneumonectomy (~2017) Wedge resection of squamous cell carcinoma of the right lung. Status post left inguinal herniorrhaphy <Jeri Santos, - Last Filed: 03/13/24 17:41> Family History Family History: Family History Father Acute myocardial infarction Diabetes mellitus <K
[2024-03-13 18:09] LABS: Basophils Percent Auto 0.8 % (0.2-1.2); Eosinophils Absolute Auto 0.1 K/mm3 (0-0.3); Hematocrit 48.6 % (42.0-52.0); Hemoglobin 15.6 g/dL (14.0-18.0); Immature Granulocyte Absolute 0.01 K/mm3 (0.00-0.031); Immature Granulocyte Percent A 0.2 % (0-0.5); Immature Platelet Fraction Pct 2.5 % (0.9-11.2); Lymphocytes Absolute Auto 1.09 K/mm3 (0.9-3.2); Lymphocytes Percent Auto 22.3 % (18.3-44.2); Mean Corpuscular HGB Conc 32.1 g/dl (32-36); Mean Corpuscular Hemoglobin 29.1 pg (26-34); Mean Corpuscular Volume 90.5 fl (80-100); Mean Platelet Volume 9.9 fl (7.4-10.4); Monocytes Absolute Auto 0.4 K/mm3 (0.1-0.6); Monocytes Percent Auto 8.2 % (2.6-8.5); Neutrophils Absolute Auto 3.2 K/mm3 (1.3-6.7); Neutrophils Percent Auto 66.5 % (45.5-73.1); Platelet Count Result 138 k/mm3 (150-375); Red Blood Count 5.37 M/mm3 (4.6-6.20); Red Cell Distribution Width 17.7 % (11.5-14.5); White Blood Count 4.9 K/mm3 (4.5-10.0)
[2024-03-13 18:19] LABS: Alanine Aminotransferase 48 U/L (6-50); Albumin Level 4.4 g/dL (3.5-5.1); Alkaline Phosphatase 63 U/L (38-126); Anion Gap 4 mmol/L (4-12); Aspartate Amino Transferase 59 U/L (17-59); Blood Urea Nitrogen 52 mg/dL (9-20); Calcium 9.5 mg/dL (8.4-10.2); Carbon Dioxide 30 mmol/L (22-30); Chloride 102 mmol/L (98-107); Estimated CRCL calculation 51 ml/min; Estimated Glomerular Filt Rate > 60; Glucose 98 mg/dL (65-110); Lactic Acid Reflex 1.2 mmol/L (0.7-2.0); Potassium 4.2 mmol/L (3.4-5.0); Sodium 136 mmol/L (137-145)
[2024-03-13 19:13] VITALS: BP 100/66; PULSE 74; RESP 17; O2SAT 94
[2024-03-13] MEDS: SODIUM CHLORIDE 0.9% IV 500 ML 999 ML IV CONT (20:44)
[2024-03-13 22:11] VITALS: BP 103/77; PULSE 64; RESP 18; O2SAT 96
--- NOTE | 2024-03-13 23:00 | PM.IMHP ---
H&P: HPI History of Present Illness Date/Time: 03/13/24 23:00 Chief Complaint: 1. Leaky gastrotomy site Narrative: Hieu Silva is an 83yo M with a mHx significant for atrial flutter on Eliquis, did tobacco abuse, history of oral cancer status post G-tube, hypothyroidism, history of squamous cell carcinoma of the lung, anxiety? For more than 2 weeks, he has been experiencing a leaky G-tube site; per daughter and patient, the tube was inserted more than a year ago for feeding due dysphagia from oral cancer. He was reluctant to pursue an [facility] visit for evaluation until his daughter on performing a wellness check noticed the malfunctioning G-tube and convinced him to visit the [facility]. Work-up findings: Na 136 K 4.2 BUN 52 Cr. 1 GFR 51 Unremarkable CBC CTAP: 1. Bilateral nonobstructing nephrolithiasis. 2. Bilateral renal cysts with a few additional indeterminate renal lesions which could represent proteinaceous/hemorrhagic cysts or solid neoplasm including renal cell carcinoma and would recommend further evaluation with pre and postcontrast MRI or CT . Hieu Silva will be admitted, evaluated and managed for a malfunctioning G-tube. Review of Systems Constitutional: Constitutional: Denies difficulty sleeping, Denies fatigue, Denies lethargy and Reports night sweats Eyes: Eyes: Reports no additional eye complaints ENT: Reports Normal hearing present, Reports dysphagia, Denies epistaxis, Denies nasal congestion and Denies nasal discharge Cardiovascular: Cardiovascular: Denies chest pain, Denies pedal edema, Denies leg edema, Denies lightheadedness and Denies palpitations Respiratory: Respiratory: Denies no additional respiratory complaints, Denies chest congestion, Denies hemoptysis, Denies dyspnea and Denies dyspnea on exertion Gastrointestinal: Gastrointestinal: Denies bloating, Denies constipation, Denies diarrhea, Denies nausea and Denies vomiting Genitourinary: Genitourinary: Denies hematuria, Denies dysuria, Denies flank pain, Denies urinary frequency and Denies urinary hesitancy Musculoskeletal: Musculoskeletal: Denies back pain, Denies myalgias, Denies arthralgias and Denies joint swelling Integumentary/Breasts: Skin/Breast: Denies breast mass Neurologic: Denies Abnormal speech present, Denies abnormal gait, Denies confusion, Denies vertigo and Denies headache(s) Psychiatric: Psychiatric: Reports anxiety, Denies behavioral changes, Denies confusion, Denies homicidal ideation and Denies suicidal ideation [facility] Past Medical History Medical History (Updated 03/13/24 @ 23:01 by Cesar Peña MD) Anxiety Atrial flutter Patient has been in persistent atrial flutter as of 09/13/2020 secondary to mitral valve regurgitation related to anterior leaflet prolapse. Current use of residential anticoagulation Dysphagia causing pulmonary aspiration with swallowing Status post PEG tube insertion in December 2019. History of echocardiogram Echocardiogram in May 2014 showed vigorous contractility of the left ventricle with ejection fraction of 70%, mild anterior leaflet mitral valve prolapse with mild mitral regurgitation and mild left atrial enlargement. 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 He had transferred his care to [facility] thereafter however as of May 2020 he was being treated with chemotherapy at [place] due to recurrence. Paroxysmal atrial fibrillation Renal cell carcinoma (~2011) Status post right nephrectomy. 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 Surgical History Surgical History History of nephrectomy (~2011) Patient apparently had a large mass on his right kidney, reportedly renal cell carcinoma. History of oral surgery (~2002) Resection of left upper jaw malignancy
--- NOTE | 2024-03-13 23:01 | PC.NURSE ---
Attempted to call report to [address] [place], [place] [address]Mario Bloom RN stated they would have to call back for report as the admission nurse was with another patient.
[2024-03-13 23:42] VITALS: PULSE 64; RESP 18; O2SAT 96
[2024-03-13 23:45] VITALS: BP 111/81; PULSE 94; RESP 18; TEMP 35.7; O2SAT 100; BMI 25.0
--- NOTE | 2024-03-13 23:46 | ADMGEN ---
This patient, Hieu Silva, was admitted to [facility] Surg Room 316-01. Patient/family oriented to hospital policies and general routines including ID bracelet, bed and alarms, visiting hours, pain management, procedures, bathroom and other care routines, personal items, smoking policy, room service/diet, and visiting hours. Information on how to activate the Rapid Response Team has been discussed. Patient/Family are encouraged to report perceived risks to care and to ask questions if they do not understand what they are told or what they should do.
[2024-03-14] VITALS (9 sets, daily range): BP systolic 72–139; BP diastolic 42–97; PULSE 75–114; RESP 16–28; TEMP 35.9–36.7; O2SAT 96–100; BMI 25.0
[2024-03-14] MEDS: DEXTROSE 5%/LACTATED RINGERS 1,000 ML 100 ML IV CONT ×2 (01:47→11:44)
[2024-03-14 06:46] LABS: Eosinophils Absolute Auto 0.1 K/mm3 (0-0.3); Eosinophils Percent Auto 3.1 % (0-4.4); Hematocrit 47.2 % (42.0-52.0); Hemoglobin 14.9 g/dL (14.0-18.0); Immature Granulocyte Absolute 0.02 K/mm3 (0.00-0.031); Immature Granulocyte Percent A 0.5 % (0-0.5); Lymphocytes Absolute Auto 1.03 K/mm3 (0.9-3.2); Lymphocytes Percent Auto 26.7 % (18.3-44.2); Mean Corpuscular HGB Conc 31.6 g/dl (32-36); Mean Corpuscular Volume 91.8 fl (80-100); Mean Platelet Volume 10.1 fl (7.4-10.4); Monocytes Absolute Auto 0.3 K/mm3 (0.1-0.6); Neutrophils Absolute Auto 2.3 K/mm3 (1.3-6.7); Neutrophils Percent Auto 60.7 % (45.5-73.1); Platelet Count Result 108 k/mm3 (150-375); Red Blood Count 5.14 M/mm3 (4.6-6.20); Red Cell Distribution Width 17.8 % (11.5-14.5); White Blood Count 3.9 K/mm3 (4.5-10.0)
[2024-03-14 07:01] LABS: Alanine Aminotransferase 42 U/L (6-50); Albumin Level 3.8 g/dL (3.5-5.1); Alkaline Phosphatase 61 U/L (38-126); Anion Gap 3 mmol/L (4-12); Aspartate Amino Transferase 48 U/L (17-59); Bilirubin,Total 0.9 mg/dL (0.2-1.3); Blood Urea Nitrogen 37 mg/dL (9-20); Calcium 8.6 mg/dL (8.4-10.2); Carbon Dioxide 31 mmol/L (22-30); Chloride 104 mmol/L (98-107); Estimated CRCL calculation 62 ml/min; Estimated Glomerular Filt Rate > 60; Glucose 116 mg/dL (65-110); Potassium 3.8 mmol/L (3.4-5.0); Sodium 138 mmol/L (137-145)
--- NOTE | 2024-03-14 08:01 | PM.IMPN ---
Progress Note: A&P Assessment and Plan (1) Gastrostomy tube dysfunction: Code(s): K94.23 - Gastrostomy malfunction Status: Acute (2) Dysphagia: Code(s): R13.10 - Dysphagia, unspecified Status: Acute Plan Gastrotomy Site malfunction Placed due to HX of oral cancer/dysphagia GI Consulted for possible tube exchange NPO IV Fluids Pain control Hold his eliquis for now HX AFIB: holding eliquis for possible tube exchange HX of oral/lung/renal cancer: follow outpatient for treatment/post nephrectomy 2011 Code status: DNR DVT prophylaxis: Eliquis on hold Stress ulcer prophylaxis: on hold PT/OT notes: Pending Disposition: Patient admitted to the medical unit for malfunctioning G-tube, DM insulin dependent the patient will need to exchange. Patient currently lives by himself will get PT OT for possible recommendations for discharge. Time Spent With Patient Time with patient: 15 - 25 minutes Subjective Date/time seen: 03/14/24 08:01 Interval history: Admission: Medical Record Narrative: Hieu Silva is an 83yo M with a mHx significant for? atrial flutter on Eliquis, did tobacco abuse, history of oral cancer status post G-tube, hypothyroidism, history of squamous cell carcinoma of the lung, anxiety? For more than 2 weeks, he has been experiencing a leaky G-tube site; per daughter and patient, the tube was inserted more than a year ago for feeding due dysphagia from oral cancer. He was reluctant to pursue an [facility] visit for evaluation until his daughter on performing a wellness check noticed the malfunctioning G-tube and convinced him to visit the [facility]. 03/14: ASSUMED CARE Review of Systems Review of Systems: All systems reviewed & are unremarkable except as noted in HPI and below Exam Narrative: Physical Exam: GENERAL: Alert and oriented x 3. No acute distress. EYES: EOMI. No scleral icterus. PERRLA. HEENT: Moist mucous membranes. LUNGS: Clear to auscultation bilaterally. No accessory muscle use. CARDIOVASCULAR: Regular rate and rhythm. No murmur. No JVD. S1-S2 ABDOMEN: Soft, mild tenderness and non-distended. No palpable masses. EXTREMITIES: No edema. Non-tender SKIN: No rashes or lesions. Skin warm, dry. NEUROLOGIC: No focal neurological deficits. CN II-XII grossly intact PSYCHIATRIC: Appropriate mood and affect. Good judgement and insight. No visual or auditory hallucinations. No suicidal or homicidal ideation. Objective Data Vital Signs Vital Signs: Vital Signs - 24 hr 03/13/24 17:32 03/13/24 19:13 03/13/24 22:11 Temperature 97.5 F L Pulse Rate 110 H 74 64 Respiratory Rate 18 17 18 Blood Pressure 132/81 100/66 103/77 Pulse Oximetry 95 94 96 Oxygen Delivery 03/13/24 23:42 03/13/24 23:45 03/14/24 05:20 Temperature 96.3 F L 96.6 F L Pulse Rate 64 94 96 Respiratory Rate 18 18 16 Blood Pressure 111/81 136/79 Pulse Oximetry 96 100 96 Oxygen Delivery Room Air Intake/Output Intake/Output: Intake & Output 03/11/24 03/12/24 03/13/24 03/14/24 23:59 23:59 23:59 23:59 Intake Total 500 0 Balance 500 0 Meds/Results Medications: Active Medications Generic Name Dose Route Start Last Admin Trade Name Freq PRN Reason Stop Dose Admin Dextrose/Lactated Ringer's 1,000 mls @ 100 mls/hr 03/13/24 22:55 03/14/24 01:47 Dextrose 5%/Lactated Ringers IV CONT 100 mls/hr .Q10H CLAIRE Administration Metoprolol Tartrate 100 mg 03/14/24 09:00 Metoprolol Tartrate 50 Mg Tab FEED TUBE Q12HR [facility] Radiology Results: ITS Impressions Abdomen/Pelvis CT 03/13/24 19:59 IMPRESSION: 1. Bilateral nonobstructing nephrolithiasis. 2. Bilateral renal cysts with a few additional indeterminate renal lesions which could represent proteinaceous/hemorrhagic cysts or solid neoplasm including renal cell carcinoma and would recommend further evaluation with pre and postcontrast MRI or CT . Labs La
[2024-03-14] MEDS: LACTATED RINGERS 1,000 ML 150 ML IV CONT ×2 (08:18→10:07)
[2024-03-14] MEDS: ceFAZolin 1 GM/NS 50 ML 1 GM/50 ML BAG IVPB (08:32)
--- NOTE | 2024-03-14 08:35 | WPDANESEPPF ---
Anes - Initial Pre Proc Eval Procedure: Operation Date: 03/14/24 15:30 Proposed Procedures p Replacement of Peg Tube - [place] MD Date/Time: 03/14/24 08:35 Surgeon: Cesar Peña MD Pre Op Diagnosis: G Tube Dysfunction Patient Data Age: 83 Gender: M Height: 1.83 m Weight: 83.5 kg Last Vital Signs Temp 97.2 F L 03/14/24 08:15 Pulse 80 03/14/24 08:15 Resp 20 03/14/24 08:15 BP 139/97 H 03/14/24 08:15 Pulse Ox 97 03/14/24 08:15 O2 Del Method Room Air 03/14/24 08:15 Allergies Allergy/AdvReac Type Severity Reaction Status Date / Time No Known Allergies Allergy Mild Verified 03/14/24 08:12 Home Medications Medication Instructions Recorded Confirmed Type apixaban 5 mg tablet (Eliquis) 5 mg feeding tube BID 01/05/24 03/14/24 History metoprolol tartrate 50 mg tablet 100 mg feeding tube Q12HR #120 tabs 01/13/24 03/13/24 Rx Laboratory Tests 03/13/24 03/14/24 18:00 06:23 WBC 4.9 K/mm3 3.9 L K/mm3 (4.5-10.0) (4.5-10.0) RBC 5.37 M/mm3 5.14 M/mm3 (4.6-6.20) (4.6-6.20) Hgb 15.6 g/dL 14.9 g/dL (14.0-18.0) (14.0-18.0) Hct 48.6 % 47.2 % (42.0-52.0) (42.0-52.0) MCV 90.5 fl 91.8 fl (80-100) (80-100) MCH 29.1 pg 29.0 pg (26-34) (26-34) MCHC 32.1 g/dl 31.6 L g/dl (32-36) (32-36) RDW 17.7 H % 17.8 H % (11.5-14.5) (11.5-14.5) Plt Count 138 L k/mm3 108 L k/mm3 (150-375) (150-375) MPV 9.9 fl 10.1 fl (7.4-10.4) (7.4-10.4) Immature Gran % (Auto) 0.2 % 0.5 % (0-0.5) (0-0.5) Neut % (Auto) 66.5 % 60.7 % (45.5-73.1) (45.5-73.1) Lymph % (Auto) 22.3 % 26.7 % (18.3-44.2) (18.3-44.2) [place] % (Auto) 8.2 % 8.0 % (2.6-8.5) (2.6-8.5) Eos % (Auto) 2.0 % 3.1 % (0-4.4) (0-4.4) Baso % (Auto) 0.8 % 1.0 % (0.2-1.2) (0.2-1.2) Lymph # (Auto) 1.09 K/mm3 1.03 K/mm3 (0.9-3.2) (0.9-3.2) [place] # (Auto) 0.4 K/mm3 0.3 K/mm3 (0.1-0.6) (0.1-0.6) Eos # (Auto) 0.1 K/mm3 0.1 K/mm3 (0-0.3) (0-0.3) Baso # (Auto) 0.0 K/mm3 0.0 K/mm3 (0.0-0.1) (0.0-0.1) Abs Immat Gran (auto) 0.01 K/mm3 0.02 K/mm3 (0.00-0.031) (0.00-0.031) Absolute Neuts (auto) 3.2 K/mm3 2.3 K/mm3 (1.3-6.7) (1.3-6.7) Absolute Nucleated RBC 0.000 K/mm3 0.000 K/mm3 (0.0-0.012) (0.0-0.012) Nucleated RBC % 0.0 % 0.0 % (0.0-0.2) (0.0-0.2) % Immature Plt Fraction 2.5 % (0.9-11.2) Sodium 136 L mmol/L 138 mmol/L (137-145) (137-145) Potassium 4.2 mmol/L 3.8 mmol/L (3.4-5.0) (3.4-5.0) Chloride 102 mmol/L 104 mmol/L (98-107) (98-107) Carbon Dioxide 30 mmol/L 31 H mmol/L (22-30) (22-30) Anion Gap 4 mmol/L 3 L mmol/L (4-12) (4-12) BUN 52 H D mg/dL 37 H D mg/dL (9-20) (9-20) Creatinine 1.00 mg/dL 0.90 mg/dL (0.7-1.3) (0.7-1.3) Estim Creat Clear Calc 51 ml/min 62 ml/min Estimated GFR > 60 > 60 (59 - ) (59 - ) Glucose 98 mg/dL 116 H mg/dL (65-110) (65-110) Lactic Acid 1.2 mmol/L (0.7-2.0) Calcium 9.5 mg/dL 8.6 mg/dL (8.4-10.2) (8.4-10.2) Total Bilirubin 1.0 mg/dL 0.9 mg/dL (0.2-1.3) (0.2-1.3) AST 59 U/L 48 U/L (17-59) (17-59) ALT 48 U/L 42 U/L (6-50) (6-50) Alkaline Phosphatase 63 U/L 61 U/L (38-126) (38-126) Total Protein 8.0 g/dL 7.0 g/dL (6.3-8.2) (6.3-8.2) Albumin 4.4 g/dL 3.8 g/dL (3.5-5.1) (3.5-5.1) Patient hx anesthesia problems: none Family hx anesthesia problems: none Results Review: All pre-operative results and documents have been reviewed as part of the pre-operative evaluation. [facility] Past Medical History Medical History (Updated 03/13/24 @ 23:01 by Cesar Peña MD) Anxiety Atrial flutter Patient has been in persistent atrial flutter as of 09/13/2020 secondary to mitral valve regurgitation related to anterior leaflet prolapse. 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
--- NOTE | 2024-03-14 08:41 | WPDGICN ---
Assessment and Plan Assessment and plan (1) Gastrostomy tube dysfunction: Code(s): K94.23 - Gastrostomy malfunction Status: Acute Assessment and Plan: will replace today since can not use it adequately (2) Dysphagia: Code(s): R13.10 - Dysphagia, unspecified Status: Acute Assessment and Plan: from previous oral cancer and treatment (3) Atrial flutter: Code(s): I48.92 - Unspecified atrial flutter Status: Acute Assessment and Plan: hold eliquis in preparation of G-tube exchange (4) Oral cancer: Onset Date: ~2002 Code(s): C06.9 - Malignant neoplasm of mouth, unspecified Status: Acute GI Consult Note Consult date/time: 03/14/24 08:41 Reason for consult: g-tube malfunctioning, dysphagia after XRT for oral cancer HPI: Hieu Silva is a 83 year old male with h/o oropharyngeal malignancy x/p treatment and XRT with G-tube after dysphagia, recently feeding has been leaking around site and had more trouble using G-tube appropriately, finally came to ER to have it exchanged. Also h/o A flutter on eliquis. CT scan reviewed, Bilateral nonobstructing nephrolithiasis. Review of Systems Constitutional: Constitutional: Denies chills Eyes: Eyes: Denies blurry vision ENT: Reports Normal hearing present Cardiovascular: Cardiovascular: Denies chest pain Respiratory: Respiratory: Denies chest congestion Gastrointestinal: Comments: dysphagia Genitourinary: Genitourinary: Denies urinary incontinence Musculoskeletal: Musculoskeletal: Denies arthralgias Neurologic: Reports Abnormal speech present (since had oral cancer) Psychiatric: Psychiatric: Denies confusion [facility] Past Medical History Medical History (Updated 03/13/24 @ 23:01 by eCsar Peña MD) Anxiety Atrial flutter Patient has been in persistent atrial flutter as of 09/13/2020 secondary to mitral valve regurgitation related to anterior leaflet prolapse. 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 History of echocardiogram Echocardiogram in May 2014 showed vigorous contractility of the left ventricle with ejection fraction of 70%, mild anterior leaflet mitral valve prolapse with mild mitral regurgitation and mild left atrial enlargement. 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 He had transferred his care to [facility] thereafter however as of May 2020 he was being treated with chemotherapy at [facility] due to recurrence. Paroxysmal atrial fibrillation Renal cell carcinoma (~2011) Status post right nephrectomy. 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 Surgical History Surgical History History of nephrectomy (~2011) Patient apparently had a large mass on his right kidney, reportedly renal cell carcinoma. History of oral surgery (~2002) Resection of left upper jaw malignancy. History of pneumonectomy (~2017) Wedge resection of squamous cell carcinoma of the right lung. Status post left inguinal herniorrhaphy Family History Family History Father Acute myocardial infarction Diabetes mellitus Social History Social History Social History: The patient lives in his own home in [place]. He is and has 3 children. He has a cat that lives at home with him. 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 He smoked up to a pack of cigarettes per day and quit several years ago. He drinks an occasional beer. No drug use. His daughter, Lisette Dai, is his surrogate decision maker
--- NOTE | 2024-03-14 11:16 | SUR.PHASEII ---
1105-Called Dr. Major about patient's blood pressures 1108-200mcg Phenylephrine IVP given by Dr. Major
[2024-03-14] MEDS: METOPROLOL TARTRATE 50 MG TAB 100 MG FEED TUBE (11:44)
--- NOTE | 2024-03-14 12:41 | PM.DS ---
DS: Admitting Diagnosis Discharge Date 03/14/2024 Admitting Diagnosis Malfunctioning G-tube DS: Discharge Diagnosis Discharge Diagnosis (1) Gastrostomy tube dysfunction: Code(s): K94.23 - Gastrostomy malfunction Status: Acute (2) Dysphagia: Code(s): R13.10 - Dysphagia, unspecified Status: Acute Plan Gastrotomy Site malfunction Placed due to HX of oral cancer/dysphagia GI Consulted for possible tube exchange NPO IV Fluids Pain control Hold his eliquis for now HX AFIB: holding eliquis for possible tube exchange HX of oral/lung/renal cancer: follow outpatient for treatment/post nephrectomy 2011 Disposition: Patient was discharged home ambulatory on tube feedings DS: Summary Hospital Course Reason for hospitalization: Malfunctioning G-tube Hospital Course: Chief Complaint: 1. Leaky gastrotomy site Narrative: Hieu Silva is an 83yo M with a mHx significant for? atrial flutter on Eliquis, did tobacco abuse, history of oral cancer status post G-tube, hypothyroidism, history of squamous cell carcinoma of the lung, anxiety? For more than 2 weeks, he has been experiencing a leaky G-tube site; per daughter and patient, the tube was inserted more than a year ago for feeding due dysphagia from oral cancer. He was reluctant to pursue an [facility] visit for evaluation until his daughter on performing a wellness check noticed the malfunctioning G-tube and convinced him to visit the [facility]. Work-up findings: Na 136 K 4.2 BUN 52 Cr. 1 GFR 51 Unremarkable CBC CTAP: 1. Bilateral nonobstructing nephrolithiasis. 2. Bilateral renal cysts with a few additional indeterminate renal lesions which could represent proteinaceous/hemorrhagic cysts or solid neoplasm including renal cell carcinoma and would recommend further evaluation with pre and postcontrast MRI or CT . 03/14: DISCHARGED Patient had G-tube exchanged today with no complications, resumed tube feeds and tolerated well. Patient ambualtory on own with no complaints. Labs unremarkable and vitals stable. Was discharged to home and can follow-up with GI PRN. Status at Discharge Functional status at discharge: independent ambulation Overall status at discharge: patient is back to baseline Time Spent with Patient Time attestation: Total time spent providing and/or coordinating discharge services: Exam Narrative: Physical Exam: GENERAL: Alert and oriented x 3. No acute distress. EYES: EOMI. No scleral icterus. PERRLA. HEENT: Moist mucous membranes. LUNGS: Clear to auscultation bilaterally. No accessory muscle use. CARDIOVASCULAR: Regular rate and rhythm. No murmur. No JVD. S1-S2 ABDOMEN: Soft, mild tenderness and non-distended. No palpable masses. G-tube EXTREMITIES: No edema. Non-tender SKIN: No rashes or lesions. Skin warm, dry. NEUROLOGIC: No focal neurological deficits. CN II-XII grossly intact PSYCHIATRIC: Appropriate mood and affect. Good judgement and insight. No visual or auditory hallucinations. No suicidal or homicidal ideation. DS: Data Data Completed and Pending Labs on day of discharge: Labs from last 24 hours 03/14/24 03/13/24 06:23 18:00 WBC 3.9 L 4.9 RBC 5.14 5.37 Hgb 14.9 15.6 Hct 47.2 48.6 MCV 91.8 90.5 MCH 29.0 29.1 MCHC 31.6 L 32.1 RDW 17.8 H 17.7 H Plt Count 108 L 138 L MPV 10.1 9.9 Immature Gran % (Auto) 0.5 0.2 Neut % (Auto) 60.7 66.5 Lymph % (Auto) 26.7 22.3 Atkinson % (Auto) 8.0 8.2 Eos % (Auto) 3.1 2.0 Baso % (Auto) 1.0 0.8 Lymph # (Auto) 1.03 1.09 Atkinson # (Auto) 0.3 0.4 Eos # (Auto) 0.1 0.1 Baso # (Auto) 0.0 0.0 Abs Immat Gran (auto) 0.02 0.01 Absolute Neuts (auto) 2.3 3.2 Absolute Nucleated RBC 0.000 0.000 Nucleated RBC % 0.0 0.0 % Immature Plt Fraction 2.5 Sodium 138 136 L Potassium 3.8 4.2 Chloride 104 102 Carbon Dioxide 31 H 30 Anion Gap 3 L 4 BUN 37 H D 52 H D Creatinine 0.90 1.00 Estim
== END 2024-03-14 15:55 | disposition home or self-care (01) ==
LOC: ANHED 22:26 → ANH3MEDSUR 23:05
PROVIDERS: Internal Medicine Gastroenterology; Nurse Practitioner Family; Admitting Provider Internal Medicine; Emergency Provider Physician Assistant; PCP Internal Medicine; Visit Provider General Practice
PROC: 0DH63UZ Insertion of Feeding Device into Stomach, Percutaneous Approach (ICD-10-PCS; CPT 43246; principal; 2024-03-14 15:30)
DX: K94.23 Gastrostomy malfunction (principal); N28.1 Cyst of kidney, acquired; R13.10 Dysphagia, unspecified; I48.92 Unspecified atrial flutter; E03.9 Hypothyroidism, unspecified; F41.9 Anxiety disorder, unspecified; Z79.01 Long term (current) use of anticoagulants; Z85.819 Personal history of malignant neoplasm of unspecified site of lip, oral cavity, and pharynx; Z92.21 Personal history of antineoplastic chemotherapy; Z92.3 Personal history of irradiation; Z85.528 Personal history of other malignant neoplasm of kidney; Z90.5 Acquired absence of kidney; Z85.118 Personal history of other malignant neoplasm of bronchus and lung; Z90.2 Acquired absence of lung [part of]; Z87.891 Personal history of nicotine dependence
CPT/HCPCS: 43249; 43246; 36415; 74177; 80053; 83605; 85025; 85055; 96361; 96365; 99212; 99285; A9270; G0378; G0463; J0690; J2001; J2371; J2704; J7040; J7120; J7121; Q9967